=== PATIENT | female | born 1940 | race Caucasian/White ===

== ENCOUNTER 2022-05-04 15:00 | Outpatient (RCR) | payer MEDICARE, BC, SELFPAY ==
--- OUTSIDE RECORDS SUMMARY | 2022-03-30 10:23 | XMS_ITS | Continuity of Care Document ---
:1940 Author Care Team Providers Name Role Phone MD Pilar P Primary Care Physician MD Denis Osorio Attending Physician Chief Complaint and Reason for Visit Chief Complaint BACK PAIN Reason for Visit Multiple myeloma not having achieved remission Rule out med reaction Allergies, Adverse Reactions, Alerts Allergen Type Severity Reaction Last Updated Verified Status Peanut oil Allergy Mild September Yes Active 2020 Peanut-derived Allergy Mild September Yes Activ e 2020 Peanut-containi Allergy Mild September Yes Acti ve ng Drug 2020 Products BEES Allergy Mild September 10, No Active 2005 HYMENOPTERA Allergy Unknown September No Active ALLERGENIC 2020 EXTRACT TREE NUT Allergy Unknown September No Active 2020 nuts Allergy Severe shortness of June No Active breath 2013 Social History Smoking Status Status Start Date End Date Date of Observat ion Never smoked tobacco September (finding) 10:49pm Observation Status Observation Response Date of Response History provided by Patient September 15, 2021 8:28am Where do you live? Own home/apt September 15, 2021 8:28am With whom do you live? Alone September 15 8:28am Additional Data Assigned Sex Female Problems Active Problems Medical Problem Onset Date Status Back pain Active Compression fracture of body of Active thoracic vertebra Multiple myeloma not having 2020 Active achieved remission Inactive/Resolved Problems Medical Problem Onset Date Status Tachycardia May 02, 2012 Resolved Grieving Resolved Anxiety Resolved Muscle spasm Resolved Medications Medication Status Dose Units Route Directions Qty Days Start End Ins tructions Date Date Acetaminophen Active 500-1 MG PO Every 6 100 NO MORE THAN (Tylenol 000 Hours as 4000 MG/ DAY Extra needed Strength) 500 Mg TAB Acyclovir Active 400 MG PO Twice A Day On hold Allopurinol Active 300 MG PO Daily On hold Bisacodyl Active 10 MG ME Daily as 12 needed Dexamethasone Active 20 MG PO Weekly 23 February Resu me 26th, D1,8,15,22 OF EACH CYCLE 2021 2:57pm Epinephrine Active 0.3 MG IM As Needed (Epinephrine as needed Autoinjecter) 0.3 Mg/0.3 Ml INJ Lenalidomide Active 15 MG PO Daily STOPPE D REVLIMID IN OCTOBER (Revlimid) 15 DAYS 1 -21 OF EACH 28 DAY CYCLE Mg CAP Levothyroxine Active 88 MCG PO Daily Sodium (Synthroid) 88 Mcg TAB Lisinopril Active 20 MG PO Daily (Zestril) 20 Mg TAB Lorazepam Active 0.5 MG PO Every 6 (Ativan) 0.5 Hours as Mg TAB needed Oxycodone Hcl Active 2.5-5 MG PO Every 4 10 Decembe Hours as r 11th, needed 2020 10:29am Polyethylene Active 17 GM PO Daily 238 Decembe Glycol 3350 r 11th, (Miralax) 17 2020 Gm POW 10:29am Sertraline Active 100 MG PO Daily Hcl Sulfamethoxaz Active 1 TAB PO Every ON HO LD ole-Trimethop Saturday, rim (Bactrim Saturday, Ds) 800 And Saturday Mg/160 Mg TAB Acetaminophen Discontin 1-2 TAB PO Every 4 December /Hydrocodone ued Hours as , er Bitart needed 2014 02, (Hydrocodone- 11:17am 2020 Acetaminophen 10:18a ) 5 Mg/325 Mg m TAB Aspirin Discontin 325 MG PO Daily February ued 2021 11:59a m Aspirin Discontin 162 MG PO Daily April (Aspirin Baby ued , er 81 Mg) 81 Mg 2012 02, CHW 9:39am 2020 10:18a m Atenolol Discontin 100 MG PO Daily April (Tenormin) 50 ued 27th, er Mg TAB 2012 02, 9:39am 2020 10:21a m Atenolol Discontin 50 MG PO Daily April (Tenormin) 50 ued 27th, Mg TAB 2011 9:39am Calcium Discontin 600 MG PO Twice A Day May Carbonate ued , (Calcium) 600 2021 Mg TAB 11:59a m Calcium Discontin 500 MG PO Twice A Day 200 Decemb Carbonate ued er 2020 7:35am Cholecalcifer Discontin 2000 UNIT PO Daily February ol (Vitamin ued 9th, D) 2,000 Unit 2021 TAB 11:59a m Cholecalcifer Discontin 1000 UNIT PO Daily 100 Decemb ol (Vitamin ued er D) 1,000 Unit , TAB 2020 7:35am Cyclobenzapri Discontin 10 MG PO Three Times De cemb ne Hcl ued A Day as er needed 2020 10:29a m Dexamethasone Discontin 20 MG PO Weekly February O N HOLD ued , D1,8,15,22 OF EACH CYCLE 2021 2:57pm Diazepam Discontin 5 MG PO Once February take 1 tablet (Valium) 5 Mg ued , er by ruma TAB 2012 5th, minutes prior 11:05am 2020 to MRI february 10:18a repeat X1 m Influenza A Discontin 0.5 ML IM Once (H1n1) ued r 12th, er Monoval 2009 09, Vaccine 8:56am 2008 (Influenza A 9:06am (H1n1) Vaccine) INJ Influenza Discontin 0.5 ML IM Once Julyobe Virus Vacc ued 4th, r 4th, Triv Types 2009 2009 A&B (Fluarix 4:43pm 4:48pm ) 0.5 Ml INJ Influenza Discontin 0.5 ML IM Once Junem Virus Vaccine ued er isaac (Fluzone Pf , , [id number] 2010 2010 (0.5 Ml)) 0.5 4:46pm 4:49pm Ml INJ Influenza Discontin 0.5 ML IM Once Julyobe Virus Vaccine ued , r Split 2018, (Fluzone 8:45am 2018 High-Dose Pf 8:47am 2018 0.5 Ml) 1 Inj INJ Influenza Discontin 0.5 ML IM Once Julyobe Virus Vaccine ued , r Split 2016, (Fluzone 1:13pm 2016 High-Dose Pf 1:14pm 2016 0.5 Ml) 1 Inj INJ Influenza Discontin 0.5 ML IM Once Julyobe Virus Vaccine ued 4th, r 4th, Split 2015 2015 (Fluzone 8:08am 8:09am High-Dose (65 Yrs And Older) 2015-) 1 Inj INJ Influenza Discontin 0.5 ML IM Once Junem Virus Vaccine ued er isaac Split , , (Fluzone 2014 2014 High-Dose (65 4:00pm 4:01pm Yrs And Older) ) 1 Inj INJ Influenza Discontin 0.5 ML IM Once 1 Septemb Septem Virus Vaccine ued er isaac Split , , (Fluzone 2013 2013 High-Dose (65 4:27pm 4:34pm Yrs And Older) ) 1 Inj INJ Influenza Discontin 0.5 ML IM Once 1 Septemb Septem Virus Vaccine ued er isaac Split , (Fluzone (3 2012 2012 Years And 5:01pm 5:02pm Older) [id number]) 1 Ml INJ Influenza Discontin 0.5 ML IM Once 1 Sept Septem Virus Vaccine ued er isaac Split , , (Fluzone Pf 2011 2011 [id number] 5:17pm 5:18pm (0.5 Ml)) 0.5 Ml INJ Lisinopril Discontin 5 MG PO Daily April (Prinivil) ued , 2011 7:30pm Lorazepam Discontin 0.5 MG PO Three Times Decembapril PRN ued A Day r , , 2005 2011 4:51pm 7:33pm Propranolol Discontin 20 MG PO Twice A Day Decembe No vemb Hcl ued as needed r , er 2015 02, 6:05pm 2020 10:18a m Sertraline Discontin 50 MG PO Daily Decemb Hcl ued er 2020 7:35am Tramadol Hcl Discontin 25-50 MG PO Every 09 February ued Hours as , 2021 11:59a m Immunizations Immunization Event Date Not Given Dose Tung[employer] Lot Vac cine Reason Number Number Informatio n Statement (VIS) Deta il COVID-19 Pfizer November 07 PFIZER-BIO [id number] 2020 COVID-19 Pfizer December 13 PFIZER-HardDronesNTSoxiable [id number] 2020 Influenza July 10, Glaxosmithkline [id number] 2009 A Influenza June 2 Sanofi Pasteur [id number] 2010 A Influenza Brandie 3 Sanofi Pasteur [id number] 2011 A Influenza Brandie 4 Sanofi [id number] 2012 A Influenza June 5 Sanofi Pasteur [id number] 2013 A Influenza June 6 Sanofi [id number] 2014 A Influenza July 10 Sanofi [id number] 2015 A Influenza July 14 Sanofi [id number] 2016 A Influenza July 15 [facility] [id number] 2018 A Relevant Diagnostic Tests and/or Laboratory Data Laboratory Results Test Date/Time Result Interpretation Reference Result Comment Performing Range Site White Blood February 12, 6.58 5.00-10.00 [facility] Count 2021 1999 [facility] 1:10pm [place] [address] Red Blood February 12, 3.75 3.90-5.03 [facility] Count 2021 [address] [facility] 1:10pm [place] [address] Hemoglobin February 12, 11.8 12.0-15.5 [facility] 2021 [address] [facility] 1:10pm [place] [address] Hematocrit February 12, 37.6 34.9-44.5 [facility] 2021 1999 [facility] 1:10pm [place] [address] Mean February 12, 100 82-98 [facility] Corpuscular 2021 1999 [facility] Volume 1:10pm [place] [address] Mean February 12, 32 27-34 [facility] Corpuscular 2021 [address] [facility] Hemoglobin 1:10pm [place] [address] Mean February 12, 31 32-36 [facility] Corpuscular 2021 [address] [facility] Hemoglobin 1:10pm [place] [address] Concent Platelet Count February 12, 281 150-450 [facility] 2021 1999 [facility] 1:10pm [place] [address] RDW February 12, 13.7 11.5-15.3 [facility] Coefficient of 2021 1999 [facility] Variation 1:10pm [place] [address] Neutrophils February 12, 59.4 50.0-70.0 [facility] (%) (Auto) 2021 [address] [facility] 1:10pm [place] [address] Lymphocytes February 12, 28.9 25.0-45.0 [facility] Lab (%) (Auto) 2021 [address] [facility] 1:10pm [facility] [address] Monocytes (%) February 12, 9.3 0.00-11.0 [facility] Lab (Auto) 2021 1999 [facility] 1:10pm [place] [address] Eosinophils February 12, 1.7 0.0-7.0 [facility] Lab (%) (Auto) 2021 [address] [facility] 1:10pm [place] [address] Basophils (%) February 12, 0.5 0.0-3.0 [facility] Lab (Auto) 2021 1999 [facility] 1:10pm [place] [address] Immature February 12, 0.2 [facility] Granulocyte % 2021 1999 [facility] (Auto) 1:10pm [place] [address] Neutrophils # February 12, 3.92 1.70-7.00 [facility] Lab (Auto) 2021 1999 [facility] 1:10pm [place] [address] Lymphocytes # February 12, 1.90 0.90-2.90 [facility] (Auto) 2021 1999 [facility] 1:10pm [place] [address] Monocytes # February 12, 0.61 0.30-0.90 [facility] Lab (Auto) 2021 1999 [facility] 1:10pm [place] [address] Eosinophils # February 12, 0.11 0.00-0.50 [facility] (Auto) 2021 1999 [facility] 1:10pm [place] [address] Basophils # February 12, 0.03 0.00-0.20 [facility] Lab (Auto) 2021 1999 [facility] 1:10pm [place] [address] Immature February 12, 0.01 [facility] Granulocyte # 2021 1999 [facility] (Auto) 1:10pm [facility] [address] Folate February 12, 9.8 >=5.9 INTERPRETIVE LUIS CARLOS RENO 2021 INFORMATION: [address] [facility] [address] 1:10pm Folate, [facility] [address] SerumReference Interval: Less than or equal to 3.9 ng/mL = Deficient 4.0 ng/mL - 5.8 ng/mL = Indeterminate Greater than or equal to 5.9 ng/mL = NormalPerformed By: Mir[facility] [address] [place] [id number] Director: Amelia Crane MD Random Glucose February 12, 93 60-115 [facility] 2021 1999 [facility] 1:10pm [facility] [address] Blood Urea February 12, 19 7-30 [facility] Nitrogen 2021 1999 [facility] 1:10pm [facility] [address] Creatinine February 12, 0.8 0.5-1.5 [facility] 2021 1999 [facility] 1:10pm [facility] [address] Estimated February 12, Patient [facility] Creatinine 2021 height/weight 1999 [facility] Clearance 1:10pm [place] [address] available Sodium Level February 12, 139 135-149 [facility] 2021 1999 [facility] 1:10pm [facility] [address] Potassium February 12, 4.2 3.6-5.1 [facility] Level 2021 1999 [facility] 1:10pm [facility] [address] Chloride Level February 12, 105 96-114 [facility] 2021 1999 [facility] 1:10pm [facility] [address] Carbon Dioxide February 12, 27 20-32 [facility] Level 2021 1999 [facility] 1:10pm [facility] [address] Calcium Level February 12, 8.9 8.4-10.6 [facility] 2021 1999 [facility] 1:10pm [facility] [address] Total Protein February 12, 12.0 6.0-8.3 The use of [facility] 2021 Eltrombopag, a 1999 [facility] 1:10pm bone marrow [place] [address] stimulant used to treat thrombocytopenia and aplastic anemia, interferes with this measurement of total protein. A 5% bias has been observed. Albumin February 12, 4.4 3.3-5.0 [facility] 2021 1999 [facility] 1:10pm [facility] [address] Total February 12, 0.4 0.1-1.5 [facility] Bilirubin 2021 1999 [facility] 1:10pm [facility] [address] Aspartate February 12, 32 12-35 [facility] Amino Transf 2021 1999 [facility] (AST/SGOT) 1:10pm [facility] [address] Alanine February 12, 12 4-35 [facility] Aminotransfera 2021 1999 [facility] se (ALT/SGPT) 1:10pm [place] [address] Alkaline February 12, 88 40-150 [facility] Phosphatase 2021 1999 [facility] 1:10pm [facility] [address] Total Protein February 12, 11.6 6.3-8.2 [facility] (VIOLETTA) [address] 1:10pm [facility] [address] Albumin (VIOLETTA) February 12, 4.91 3.75-5.01 [facility] [address] 1:10pm [facility] [address] Dbmci-0-Rkuwrq February 12, 0.31 0.19-0.46 [facility] ins [address] 1:10pm [facility] [address] Ebjuq-1-Ybajfk February 12, 0.95 0.48-1.05 [facility] ins [address] 1:10pm [facility] [address] Beta Globulins February 12, 0.64 0.48-1.10 [facility] [address] 1:10pm [facility] [address] Gamma February 12, 4.79 0.62-1.51 [facility] Globulins [address] 1:10pm [facility] [address] Immunofixation February 12, VIOLETTA [facility] Interpretation [address] 1:10pm [facility] [address] Immunoglobulin February 12, 5952 [address]1632 [facility] G 2021 INTERVAL: [address] (Nephelometry) 1:10pm Immunoglobulin [facility] [address] GAccess complete set of age- and/or gender-specific referenceinterva ls for this test in the [facility] Test Directory([employer]). Immunoglobulin February 12 [phone] [facility] A [address]: [address] (Nephelometry) 1:10pm Immunoglobulin [facility] [address] AAccess complete set of age- and/or gender-specific referenceinterva ls for this test in the [facility] Test Directory([employer]). Immunoglobulin February 12 35-263 [facility] M [address]VAL: [address] (Nephelometry) 1:10pm Immunoglobulin [facility] [address] MAccess complete set of age- and/or gender-specific referenceinterva ls for this test in the [facility] Test Directory([employer]). Free [place] February 12, 161.50 3.30-19.40 INTERPRETIVE [employer] Light Chains, 2021 INFORMATION: [address] Quant 1:10pm [place] Qnt Free [facility] [address] Light ChainsUndetected antigen excess is a rare event but cannot beexcluded. Free light chain results should always be interpretedin conjunction with other clinical and laboratory findings. Free Lambda February 12, 3.31 5.71-26.30 INTERPRETIVE [employer] Light Chains, 2021 INFORMATION: [address] Quant 1:10pm Lambda Qnt Free [facility] [address] Light ChainsUndetected antigen excess is a rare event but cannot beexcluded. Free light chain results should always be interpretedin conjunction with other clinical and laboratory findings. Free [place] and February 12, 48.79 0.26-1.65 [facility] Lambda Light [address] Chains 1:10pm [facility] [address] VIOLETTA & Serum February 12, See M-spike in the [facility] PEP 2021 Note gamma region. [address] Interpretation 1:10pm The monoclonal [place] [address] protein peakaccounts for 4.58 g/dL of the total 4.79 g/dL of protein inthe gamma region. 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 Monoclonal February 12, See Authorized [facility] Protein and 2021 Note individuals can [address] FLC (EER) 1:10pm access the [facility] [address] ARUPEnhanced Report using the following link:[email or web address] By: Med[facility]ram500 [place], [place] [address]Saqljaebjo Director: Amelia Crane MD Vitamin B12 February 12, [phone] TEST DONE AT [facility] Level 2021 [facility] [address] [facility] 1:10pm [facility] [address] Advance Directives Advance Directive Response Recorded Date/Time Does Pt have Health Care No October 05, 2015 2:38pm Directive? Has patient completed a Yes September 14 10:49pm Health Care Directive? Insurance Providers Guarantor Nehemiah Pineda Address [facility] [address] [facility] [address] Contact Info. Home Phone: Payer Policy Id Coverage Id Subscriber's Subscriber Id Effective E xpiration Name Date Date Blue Cross [id number] Nehemiah Pineda October 07, [place] 220G [id number] 2008 Medicare [id number] Christianalejandra Nehemiah 64 B Encounters Encounter Location(s) Arrival/Admit Date Discharge/Depart Date Provider(s) Registered [place] March 29, 2022 [facility] 6:57am Recent Diagnosis Onset Date Multiple myeloma not having achieved remission Functional Status Observation Response Date Recorded Functional Status Independent September 16, 2021 1:44pm Mental Status Observation Response Date Recorded Cognitive Status Alert September 16, 2021 1:44pm Oriented September 16, 2021 1:44pm Assessments Diagnosis Onset Date Resolution Status Multiple myeloma not Active having achieved remission Plan of Treatment Future Tests Future scheduled test information is unavailable Pending Tests Pending diagnostic test information is unavailable Future Visits Future appointment information is unavailable Referrals to Other Providers Reason for Referral Start Provider Provider Contact Provider Address Referral Date Information Bonnie Hernandez MD Work Phone: [facility] Karina [address] [facility] 2 [address] Future Procedures Future procedure information is unavailable Future Medications Future medication information is unavailable Patient Instructions Oxycodone, Rapid Release (By mouth) Polyethylene Glycol 3350 (By mouth) Vertebral Compression Fracture (DC) Back Pain (GEN)
--- OUTSIDE RECORDS SUMMARY | 2022-03-30 11:10 | XMS_ITS | Continuity of Care Document ---
[...] Daily On hold Bisacodyl Active 10 MG [place] Daily as 12 needed Dexamethasone Active 20 [...] ued er isaac (Fluzone Pf , , 4850-2295 2010 2010 (0.5 Ml)) 0.5 4:46pm 4:49pm [...] 2012 2012 Years And 5:01pm 5:02pm Older) [id number]) 1 Ml INJ Influenza Discontin 0.5 ML IM Once 1 Sept Septem Virus Vaccine ued er isaac Split , , (Fluzone Pf 2011 2011 [id number] 5:17pm 5:18pm (0.5 Ml)) 0.5 Ml INJ [...] Immunizations Immunization Event Date Not Given Dose Gunite Mixer Lot Vac cine Reason Number Number Informatio n Statement (VIS) Deta il COVID-19 Pfizer November 07 PFIZER-BIO [id number] 2020 COVID-19 Pfizer December 13 PFIZER-BlueleafNTLifeBio [id number] 2020 Influenza July 10, Glaxosmithkline [id number] 2009 A Influenza June 2 Sanofi Pasteur [id number] 2010 A Influenza Brandie 3 Sanofi Pasteur [id number] 2011 A Influenza Brandie 4 Sanofi [id number] 2012 A Influenza June 5 Sanofi Pasteur [id number] 2013 A Influenza June 6 Sanofi [id number] 2014 A Influenza July 10 Sanofi [id number] 2015 A Influenza July 14 Sanofi [id number] 2016 A Influenza July 15 [facility] [id number] 2018 A Relevant Diagnostic Tests and/or Laboratory Data Laboratory Results Test Date/Time Result Interpretation Reference Result Comment Performing Range Site White Blood February 12, 6.58 5.00-10.00 [facility] Count 2021 [address] [facility] 1:10pm [place] [address] Red Blood February 12, 3.75 3.90-5.03 [facility] Count 2021 [address] [facility] 1:10pm [place] [address] Hemoglobin February 12, 11.8 12.0-15.5 [facility] 2021 [address] [facility] 1:10pm [place] [address] Hematocrit February 12, 37.6 34.9-44.5 [facility] 2021 [address] [facility] 1:10pm [place] [address] Mean February 12, 100 82-98 [facility] Corpuscular 2021 1999 [facility] Volume 1:10[place] [address] Mean February 12, 32 27-34 [facility] Corpuscular 2021 [address] [facility] Hemoglobin 1:10pm [place] [address] Mean February 12, 31 32-36 [facility] Corpuscular 2021 [address] [facility] Hemoglobin 1:10pm [place] [address] Concent Platelet Count February 12, 281 150-450 [facility] 2021 [address] [facility] 1:10pm [place] [address] RDW February 12, 13.7 11.5-15.3 [facility] Coefficient of 2021 [address] [facility] Variation 1:10pm [place] [address] Neutrophils February 12, 59.4 50.0-70.0 [facility] (%) (Auto) 2021 1999 [facility] 1:10pm [place] [address] Lymphocytes February 12, 28.9 25.0-45.0 [facility] Lab (%) (Auto) 2021 [address] [facility] 1:10pm [facility] [address] Monocytes (%) February 12, 9.3 0.00-11.0 [facility] Lab (Auto) 2021 [address] [facility] 1:10pm [place] [address] Eosinophils February 12, 1.7 0.0-7.0 [facility] (%) (Auto) 2021 [address] [facility] 1:10pm [place] [address] Basophils (%) February 12, 0.5 0.0-3.0 [facility] Lab (Auto) 2021 [address] [facility] 1:10pm [place] [address] Immature February 12, 0.2 [facility] Granulocyte % 2021 1999 [facility] (Auto) 1:10pm [place] [address] Neutrophils # February 12, 3.92 1.70-7.00 [facility] Lab (Auto) 2021 [address] [facility] 1:10pm [place] [address] Lymphocytes # February 12, 1.90 0.90-2.90 [facility] (Auto) 2021 [address] [facility] 1:10pm [place] [address] Monocytes # February 12, 0.61 0.30-0.90 [facility] Lab (Auto) 2021 [address] [facility] 1:10pm [place] [address] Eosinophils # February 12, 0.11 0.00-0.50 [facility] (Auto) 2021 [address] [facility] 1:10pm [place] [address] Basophils # February 12, 0.03 0.00-0.20 [facility] Lab (Auto) 2021 [address] [facility] 1:10pm [place] [address] Immature February 12, 0.01 [facility] Granulocyte # 2021 1999 [facility] (Auto) 1:10pm [facility] [address] Folate February 12, 9.8 >=5.9 INTERPRETIVE LUIS CARLOS RENO 2021 INFORMATION: [address] [facility] [address] 1:10pm Folate, [facility] [address] SerumReference Interval: Less than or equal to 3.9 ng/mL = Deficient 4.0 ng/mL - 5.8 ng/mL = Indeterminate Greater than or equal to 5.9 ng/mL = NormalPerformed By: [employer] [address] [place] [id number] Director: Amelia Crane MD Random Glucose February 12, 93 60-115 [facility] 2021 [address] [facility] 1:10pm [facility] [address] Blood Urea February 12, 19 7-30 [facility] Nitrogen 2021 [address] [facility] 1:10pm [facility] [address] Creatinine February 12, 0.8 0.5-1.5 [facility] 2021 [address] [facility] 1:10pm [facility] [address] Estimated February 12, Patient [facility] Creatinine 2021 height/weight [address] [facility] Clearance 1:10pm [place] [address] available Sodium Level February 12, 139 135-149 [facility] 2021 [address] [facility] 1:10pm [facility] [address] Potassium February 12, 4.2 3.6-5.1 [facility] Level 2021 [address] [facility] 1:10pm [facility] [address] Chloride Level February 12, 105 96-114 [facility] 2021 [address] [facility] 1:10pm [facility] [address] Carbon Dioxide February 12, 27 20-32 [facility] Level 2021 [address] [facility] 1:10pm [facility] [address] Calcium Level February 12, 8.9 8.4-10.6 [facility] 2021 [address] [facility] 1:10pm [facility] [address] Total Protein February 12, 12.0 6.0-8.3 The use of [facility] 2021 Eltrombopag, a [address] [facility] 1:10pm bone [place] [address] stimulant used to treat thrombocytopenia and aplastic anemia, interferes with this measurement of total protein. A 5% bias has been observed. Albumin February 12, 4.4 3.3-5.0 [facility] 2021 [address] [facility] 1:10pm [facility] [address] Total February 12, 0.4 0.1-1.5 [facility] Bilirubin 2021 [address] [facility] 1:10pm [facility] [address] Aspartate February 12, 32 12-35 [facility] Amino Transf 2021 [address] [facility] (AST/SGOT) 1:10pm [facility] [address] Alanine February 12, 12 4-35 [facility] Aminotransfera 2021 [address] [facility] se (ALT/SGPT) 1:10pm [place] [address] Alkaline February 12, 88 40-150 [facility] Phosphatase 2021 [address] [facility] 1:10pm [facility] [address] Total Protein February 12, 11.6 6.3-8.2 [facility] ([facility]) [address] 1:10pm [facility] [address] Albumin (VIOLETTA) February 12, 4.91 3.75-5.01 [facility] [address] 1:10pm [facility] [address] Zhnnr-2-Mszjzb February 12, 0.31 0.19-0.46 [facility] ins [address] 1:10pm [facility] [address] Quvnq-6-Hthgce February 12, 0.95 0.48-1.05 [facility] ins [address] 1:10pm [facility] [address] Beta Globulins February 12, 0.64 0.48-1.10 [facility] [address] 1:10pm [facility] [address] Gamma February 12, 4.79 0.62-1.51 [facility] Globulins [address] 1:10pm [facility] [address] Immunofixation February 12, [facility] Interpretation [address] 1:10pm [facility] [address] Immunoglobulin February 12, 5952 768-1632 REFERENCE [facility] G 2021 INTERVAL: [address] (Nephelometry) 1:10pm Immunoglobulin [facility] [address] GAccess complete set of age- and/or gender-specific referenceinterva ls for this test in the [facility] Laboratory Test Directory([employer]). Immunoglobulin February 12 68-408 RE[facility]ENCE [facility] A 2021 INTERVAL: [address] (Nephelometry) 1:10pm Immunoglobulin [facility] [address] AAccess complete set of age- and/or gender-specific referenceinterva ls for this test in the [facility] Test Directory([employer]). Immunoglobulin February 12 35-263 RE[facility]ENCE [facility] M [address] INTERVAL: [address] (Nephelometry) 1:10pm Immunoglobulin [facility] [address] MAccess complete set of age- and/or gender-specific referenceinterva ls for this test in the [employer] Laboratory Test Directory([facility]). Free [place] February 12, 161.50 3.30-19.40 INTERPRETIVE [employer] Light Chains, 2021 INFORMATION: [address] Quant 1:10pm [place] Qnt Free [facility] [address] Light ChainsUndetected antigen excess is a rare event but cannot beexcluded. Free light chain results should always be interpretedin conjunction with other clinical and laboratory findings. Free Lambda February 12, 3.31 5.71-26.30 INTERPRETIVE [employer] Light Chains, 2021 INFORMATION: [address] Quant 1:10pm Lambda Qnt Free [facility] [address] Light ChainsUndetected antigen excess is a rare event but cannot beexcluded. Free light chain results should always be interpretedin conjunction with other clinical and laboratory findings. Free [place] and February 12, 48.79 0.26-1.65 [facility] Lambda Light [address] Chains 1:10pm [facility] [address] [facility] & Serum February 12, See M-spike in the [facility] PEP 2021 Note gamma region. [address] Interpretation 1:10pm The monoclonal [place] [address] protein peakaccounts for 4.58 g/dL of the total 4.79 g/dL of protein inthe gamma region. 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 Monoclonal February 12, See Authorized [facility] Protein and 2021 Note individuals can [address] FLC (EER) 1:10pm access the [facility] [address] ARUPEnhanced Report using the following link:[email or web address] By: [employer], [place] [address]Ipibtqmnxt Director: Amelia Crane MD Vitamin B12 February 12, 564 194-228 TEST DONE AT [facility] Level 2021 [facility] [address] [facility] 1:10pm [facility] [address] Advance Directives Advance Directive Response Recorded Date/Time Does Pt have Health Care No October 05, 2015 2:38pm Directive? Has patient completed a Yes September 14 10:49pm Health Care Directive? Insurance Providers Guarantor Nehemiah Pineda Address [facility] [address] [facility] [address] Contact Info. Home Phone: Payer Policy Id Coverage Id Subscriber's Subscriber Id Effective E xpiration Name Date Date Blue [employer] [id number] Nehemiah Pineda October 07, [place] 220G [id number] B 2008 Medicare [id number] Christainalejandra Nehemiah 64 B Encounters Encounter Location(s) Arrival/Admit Date Discharge/Depart Date Provider(s) Registered [place] March 29, 2022 [facility] 6:57am Recent Diagnosis Onset Date Multiple [...] Bonnie Hernandez MD Work Phone: [facility] [address] [facility] [phone] Future Procedures Future procedure information is unavailable Future Medications Future medication information is unavailable Patient Instructions Oxycodone, Rapid Release (By mouth) Polyethylene Glycol 3350 (By mouth) Vertebral Compression Fracture (DC) Back Pain (GEN)
[2022-04-10 15:04] LABS: Basophils Absolute Auto 0.04 K/uL (0.00-0.30); Basophils Percent Auto 0.7 % (0.0-3.0); Eosinophils Absolute Auto 0.13 K/uL (0.00-0.50); Eosinophils Percent Auto 2.4 % (0.0-7.0); Hematocrit 35.3 % (33.0-51.0); Hemoglobin* 11.1 gm/dL (12.0-16.0); Lymphocytes Absolute Auto 2.26 K/uL (0.90-2.90); Lymphocytes Percent Auto 41.8 % (20-44); Mean Corpuscular HGB Conc 31 gm/dL (32-36); Mean Corpuscular Hemoglobin 32 pg (26-34); Mean Corpuscular Volume 103 fL (80-100); Monocytes Percent Auto 13.3 % (0.0-11.0); Neutrophils Percent Auto 41.8 % (42.0-72.0); Platelet Count* 275 K/uL (140-440); RDW Coefficient of Variation % 13.3 % (11.5-15.5); Red Blood Count 3.44 m/uL (4.00-5.20); White Blood Count* 5.41 K/uL (4.50-11.00)
[2022-04-10 15:09] LABS: Slide Review Reflex No
[2022-04-10 15:20] LABS: Albumin* 3.8 g/dL (3.3-5.0); Chloride* 107 mmol/L (96-114); Potassium* 4.5 mmol/L (3.6-5.1); Sodium* 137 mmol/L (135-149)
[2022-04-10 15:22] LABS: Creatinine* 0.9 mg/dL (0.5-1.5); Estimated Glomerular Filt Rate 64.23
[2022-04-10 15:23] LABS: Alanine Aminotransferase* 11 U/L (4-35); Alkaline Phosphatase* 74 U/L (40-150); Aspartate Amino Transferase* 19 U/L (12-35); Bilirubin Total* 0.2 mg/dL (0.1-1.5); Blood Urea Nitrogen* 17 mg/dL (7-30); Calcium* 8.4 mg/dL (8.4-10.6); Carbon Dioxide* 28 mmol/L (20-32); Glucose* 96 mg/dL (60-115)
--- NOTE | 2022-04-11 08:46 | ONC.NURNOTE ---
Environmental Engineer Scientist checked in with Nehemiah yesterday while here for lab draw- denies any concerns with rash, diarrhea, fever reports feeling well with the Revlimid Environmental Engineer Scientist phoned [facility] in [place] because patient still needs her dexamethasone delivered- they were going to deliver it tonite labs reviewed by Deirdre Rodriguez and called to Nehemiah Tarangoi was instructed to start Revlimid and Dex once she has both the Rev and Dex- next appts reviewed
--- NOTE | 2022-04-11 08:53 | ONC.NURNOTE ---
Dental work prior to Zometa is planned for 05/15/22
--- NOTE | 2022-04-27 15:46 | ONC.NURNOTE ---
Patient called regarding constipation-currently no BM for 3 days so patient instructed to increase her mirilax to 3 times a day and then to take one of her dulcolax tablets. patient to call her primary in am if still no BM.
--- NOTE | 2022-05-01 06:56 | URNOTE ---
Request received from [facility] for prior authorization of Zoledronic Acid [id number]. Patient carries Medicare as primary insurance. Per CMS.gov LCD B79101 no prior authorization is required for Zoledronic Acid. Services are based on medical necessity and Medicare guidelines.
--- NOTE | 2022-05-02 12:02 | ONC.NURNOTE ---
Nehemiah missed scheduled lab appt yesterday message left on VM to call to reschedule
[2022-05-04 14:42] LABS: Basophils Absolute Auto 0.02 K/uL (0.00-0.30); Basophils Percent Auto 0.3 % (0.0-3.0); Hemoglobin* 11.5 gm/dL (12.0-16.0); Immature Granulocytes Abs Auto 0.02 K/uL (0.00-0.30); Lymphocytes Absolute Auto 2.24 K/uL (0.90-2.90); Lymphocytes Percent Auto 32.7 % (20-44); Mean Corpuscular HGB Conc 32 gm/dL (32-36); Mean Corpuscular Hemoglobin 32 pg (26-34); Mean Corpuscular Volume 101 fL (80-100); Monocytes Percent Auto 13.9 % (0.0-11.0); Neutrophils Absolute Auto 3.06 K/uL (1.7-7.0); Neutrophils Percent Auto 44.8 % (42.0-72.0); Platelet Count* 189 K/uL (140-440); RDW Coefficient of Variation % 13.2 % (11.5-15.5); Red Blood Count 3.55 m/uL (4.00-5.20); White Blood Count* 6.84 K/uL (4.50-11.00)
[2022-05-04 14:57] LABS: Slide Review Acceptable Review (Acceptable); Slide Review Reflex Yes
[2022-05-04 15:01] LABS: Chloride* 105 mmol/L (96-114); Potassium* 3.7 mmol/L (3.6-5.1); Sodium* 136 mmol/L (135-149)
[2022-05-04 15:03] LABS: Aspartate Amino Transferase* 21 U/L (12-35); Bilirubin Total* 0.3 mg/dL (0.1-1.5); Carbon Dioxide* 26 mmol/L (20-32); Creatinine* 1.1 mg/dL (0.5-1.5); Est. Creatinine Clearance* 31.19; Estimated Glomerular Filt Rate 50 ml/min
[2022-05-04 15:04] LABS: Alanine Aminotransferase* 13 U/L (4-35); Alkaline Phosphatase* 68 U/L (40-150); Blood Urea Nitrogen* 20 mg/dL (7-30); Calcium* 8.7 mg/dL (8.4-10.6); Glucose* 120 mg/dL (60-115); Total Protein* 10.2 g/dL (6.0-8.3)
[2022-05-08 22:31] LABS: Albumin 4.36 g/dL (3.75-5.01); Alpha 1 Globulin 0.38 g/dL (0.19-0.46); Alpha 2 Globulin 1.02 g/dL (0.48-1.05); Immunofixation IFE Done; Immunoglobulin A 28 mg/dL (68-408); Immunoglobulin G 4676 mg/dL (768-1632); Immunoglobulin M 21 mg/dL (35-263); Kappa Qnt Free Light Chains 206.86 mg/L (3.30-19.40); Lambda Qnt Free Light Chains 8.21 mg/L (5.71-26.30); Total Protein, Serum 9.6 g/dL (6.3-8.2)
== END 2022-05-06 23:59 | disposition home or self-care (01) ==
LOC: CCIC 15:00
PROVIDERS: Internal Medicine Medical Oncology; PCP Family Medicine; Visit Provider Internal Medicine Hematology & Oncology
DX: C90.00 Multiple myeloma not having achieved remission (principal)
CPT/HCPCS: 36415; 80053; 82784; 83520; 84155; 84165; 85025; 86334

== ENCOUNTER 2022-05-28 09:59 | Emergency (ER) | payer MEDICARE, BC, SELFPAY ==
[2022-05-28 10:11] VITALS: BP 177/90; PULSE 87; RESP 26; TEMP 36.8; O2SAT 96; BMI 20.4
--- NOTE | 2022-05-28 10:49 | CRLHL7_ITS ---
For Patients: As a result of the Century Cures Act, medical imaging exams and procedure reports are released immediately into your electronic medical record. You may view this report before your referring provider. If you have questions, please contact your health care provider. INDICATION: Chest pain COMPARISON: Examination consists of two views of the chest and a total of 3 additional images to evaluate the right and left rib cage. TECHNIQUE: A single view chest radiograph from June 29, 2014 FINDINGS: TUBES AND LINES: None. HEART AND MEDIASTINUM: Heart size top normal. Tortuous aorta and tortuous head neck vessels parent. LUNGS AND PLEURAL SPACES: Linear opacities in the left mid lung and both bases probably atelectasis or scarring.No pleural effusion or pneumothorax OSSEOUS STRUCTURES: Demineralized osseous structures. Multiple wedge compression deformities of multiple thoracic vertebral bodies, age-indeterminate. Numerous bilateral rib fractures age indeterminate. None of these appear to be significantly displaced. The rib fractures appear to be new since 2013. Since a lateral view was not available in 2013, it is indeterminate whether the thoracic fractures are new. IMPRESSION: 1. Linear opacities primarily at the lung bases consistent with atelectasis or scarring. No pleural effusion or pneumothorax. 2. Multiple wedge compression deformities of multiple thoracic vertebral bodies, age indeterminate. 3. Numerous bilateral rib fractures, age indeterminate. None of these appear to be significantly displaced. Dictated by Jimbo Calderón MD @ 05/28/2022 12:22:26 PM (Electronically Signed)
--- NOTE | 2022-05-28 12:01 | ED.NURSE ---
pt given water, OK's per MD
[2022-05-28 12:32] VITALS: BP 160/73; PULSE 79; RESP 20; O2SAT 94
--- NOTE | 2022-05-28 12:44 | CRLHL7_ITS ---
For Patients: As a result of the Century Cures Act, medical imaging exams and procedure reports are released immediately into your electronic medical record. You may view this report before your referring provider. If you have questions, please contact your health care provider. INDICATION: CHEST PAIN TECHNIQUE: CT chest without contrast. COMPARISON: None. FINDINGS: Lungs and pleura: The lungs are hyperinflated. Linear bibasilar atelectasis. Mild bibasilar bronchiectasis. The central airways are patent. No pleural effusions, pleural thickening, or pneumothorax. Heart and vasculature: Heart size is normal. Thoracic aorta and pulmonary artery are normal in caliber.Mild atherosclerosis of the thoracic aorta. Lymph nodes/mediastinum: No mediastinal or axillary adenopathy. Chest wall: No masses. Upper abdomen: Small hiatal hernia. Bones: Degenerative changes of the spine. Chronic bilateral rib fractures. Chronic and more age indeterminate sternum fracture. Multiple age-indeterminate compression deformities, T3, T5, T7, T8, T9, T11, T12 and L1. (Severe height loss is noted at the T3, T5 T9 and L1 levels. ( IMPRESSION: 1. The lungs are hyperinflated with mild bibasilar atelectasis and bronchiectasis. 2. Multiple age-indeterminate compression deformities, T3, T5, T7, T8, T9, T11, T12 and L1. 3. Chronic and age indeterminate fractures of the sternum. Remote bilateral rib fractures. 4. Small hiatal hernia. Please note that all CT scans at this facility use dose modulation, iterative reconstruction, and/or weight-based dosing when appropriate to reduce radiation dose to as low as reasonably achievable. Dictated by Barry Pizano MD @ 05/28/2022 1:41:59 PM (Electronically Signed)
--- NOTE | 2022-05-28 14:05 | ED.CHESTPAIN ---
HPI - Chest Pain General Date Seen: 05/28/22 Chief Complaint: Chest Pain Stated Complaint: chest pain/from [facility] Time Seen by Provider: 05/28/22 10:32 Source: patient, RN notes reviewed, old records reviewed and other (Friend) Mode of arrival: wheelchair Limitations: no limitations History of Present Illness HPI narrative: Patient is a very kind in pleasant 82-year-old female with history of multiple myeloma, currently on Revlimid as well as methadone for chronic pain who comes to the emergency room [facility] for evaluation regarding chest pain. Patient noted that she had actually been feeling fairly well until SaturdayMay 26 at which time she was sitting in her desk and reach for something had the sudden onset of upper chest pain. She notes that since that time movement greatly increases her discomfort. She is able to cause her pain by taking a deep breath or tensing up on her upper extremities. She denies any falls or trauma. She has not had a cough or cold or fever. She denies a history of heart problems. She has not noted any increasing back pain. In the past she has had multiple thoracic compression fractures. In regards to her multiple myeloma history, she was diagnosed in 2020 and subsequently developed thoracic spine fractures. At 1 point she was actually placed on hospice because of severe pain. She was treated with methadone and subsequently discharged from hospice. She states that she has been feeling very well. A good friend of hers accompanies her to here today. complaint: chest pain Onset (ago): day(s) Timing of current episode: constant Onset: other (With movement) Pain location: substernal, left chest and right chest Pain radiation: none Severity: moderate Quality: sharp Relieving factors: rest Exacerbating factors: exertion, inspiration, palpation and movement Context: other (Multiple myeloma) Treatment prior to arrival: none Related Data Home Medications Medication Instructions Recorded Confirmed acetaminophen 500 mg capsule 500 mg PO Q6H PRN 04/05/22 05/14/22 bisacodyl 10 mg rectal suppository 10 mg UT DAILY PRN 04/05/22 05/14/22 dexamethasone 4 mg tablet 20 mg PO .weekly 04/05/22 05/14/22 epinephrine 0.3 mg/0.3 mL 0.3 mg IM PRN 04/05/22 05/14/22 injection, auto-injector lenalidomide 15 mg capsule 15 mg PO DAILY 04/05/22 05/14/22 (Revlimid) levothyroxine 88 mcg tablet 88 mcg PO DAILY 04/05/22 05/14/22 lisinopril 20 mg tablet 20 mg PO DAILY 04/05/22 05/14/22 lorazepam 0.5 mg tablet 0.5 mg PO Q6H PRN 04/05/22 05/14/22 oxycodone 5 mg tablet 2.5 - 5 mg PO Q4H PRN 04/05/22 05/14/22 polyethylene glycol 3350 17 17 g PO DAILY PRN 04/05/22 05/14/22 gram/dose oral powder (Gavilax) sertraline 100 mg tablet 100 mg PO DAILY 04/05/22 05/14/22 Allergies Allergy/AdvReac Type Severity Reaction Status Date / Time tree nut Allergy Unknown Verified 04/05/22 17:27 nuts Allergy Severe Uncoded 04/05/22 17:27 BEES Allergy Mild Uncoded 04/05/22 17:27 HYMENOPTERA ALLERGENIC Allergy Unknown Uncoded 04/05/22 17:27 [address] [facility] Medical History Anxiety Back pain Compression fracture of body of thoracic vertebra Grief Muscle spasm Tachycardia (05/02/12) Social History Smoking Status: Never smoker Do you use any of these nicotine containing products: None How often do you have a drink containing alcohol: never How often do you have six or more drinks on one occasion: Never AUDIT-C Alcohol total score: 0 Non-prescribed substance use: denies use service: No Exam Const Vital Signs, click to edit/add: Vital Signs - 24 hr 05/28/22 10:11 05/28/22 12:32 Temperature 98.2 F Pulse Rate [Pulse Oximeter] 87 79 Respiratory Rate 26 H 20 Blood Pressure [Left Upper Arm] 177/90 H 160/73 H Pulse Oximetry 96 94 Oxygen Delivery Method Room Air Documenting provider has reviewed patient's vital signs: yes Common normals: oriented x3 and alert General appearance: cooperative, well kempt and other (Uncomfortable with movement.) Nutritional appearance: cachectic HENMT Common normals: head/scalp atraumatic and external nose normal Head and scalp: atraumatic Face and sinus: normal facial exam Nose: external nose normal Eye General eye: normal appearance of both eyes Neck & C-Spine Common normals: no lymphadenopathy and supple Chest Chest: tenderness (Bilateral upper anterior ribs as well as sternum. No ecchymosis noted) Other: No pain with squeeze of chest wall laterally. Resp Common normals: normal respiratory effort and clear to auscultation bilaterally Effort & inspection: able to speak in complete sentences and symmetric chest movement Auscultation: clear to auscultation bilaterally Cardio Common normals: regular rate and regular rhythm Rate: regular rate Rhythm: regular rhythm GI Common normals: soft to palpation and non-tender Palpation: soft Back & Pelvis Other: Kyphosis Extremity Common normals: normal to inspection Neuro Common normals: oriented x3 Sensorium/orientation: alert Speech: speech normal Psych Common normals: mental status grossly normal, thought process normal, cooperative and affect normal Appearance: well kempt Mood and affect: sad and tearful Thought process: normal thought process Thought content: normal thought content Attention/concentration: attention grossly intact Memory/cognition: memory grossly intact Insight: insight good Judgement: judgment good Skin Common normals: no rashes or lesions noted General skin exam: no rashes or lesions noted Course Course Hospital Course: Patient is requesting an x-ray and then to go home per nursing staff. Do talk to patient and with EKG that is read by me as normal, and with the exam that showed tenderness over anterior chest wall and sternum, I do think this is most likely musculoskeletal stops comfort. Would recommend x-ray of ribs and sternum. At this time EKG is reassuring and symptoms suggest musculoskeletal etiology. Reevaluation(s) Reevaluation #1: Patient noted to have multiple rib fractures bilateral noted on her plain film x-ray. These are new since 2013. It is recommended that she undergo CT of the chest. Vital Signs Vital signs: Initial Vital Signs Temperature 98.2 F 05/28/22 10:11 Temperature Source Temporal Artery Scan 05/28/22 10:11 Pulse Rate 87 05/28/22 10:11 Pulse Rhythm 05/28/22 10:11 Respiratory Rate 26 H 05/28/22 10:11 Blood Pressure 177/90 H 05/28/22 10:11 Blood Pressure Mean 119 05/28/22 10:11 Blood Pressure Position Supine 05/28/22 10:11 Pulse Oximetry 96 05/28/22 10:11 Oxygen Delivery Method 05/28/22 10:11 Vital Signs Temperature 98.2 F 05/28/22 10:11 Pulse Rate 87 05/28/22 10:11 Respiratory Rate 26 H 05/28/22 10:11 Blood Pressure 177/90 H 05/28/22 10:11 Pulse Oximetry 96 05/28/22 10:11 Oxygen Delivery Method 05/28/22 10:11 Temperature 98.2 F 05/28/22 10:11 Pulse Rate 79 05/28/22 12:32 Respiratory Rate 20 05/28/22 12:32 Blood Pressure 160/73 H 05/28/22 12:32 Pulse Oximetry 94 05/28/22 12:32 Oxygen Delivery Method 05/28/22 10:11 MDM - Chest Pain MDM Narrative Medical decision making narrative: 1. New sternal fracture-likely secondary to profound osteopenia from age related causes as well as chronic dexamethasone. We did talk briefly about the use of calcium but patient states she has been warned not to start that until after a dental procedure that is upcoming. She will speak with Oncology on SaturdayJune 04 with his already scheduled. I did state that at that time they may wish to start calcium. At this time cannot rule out the possibility of underlying multiple myeloma causing the fracture. Again follow-up with oncology scheduled in 1 week. 2. Chest pain-likely musculoskeletal stemming from 1. Patient is on chronic methadone which she will continue. We patient was given oxycodone 5 mg tab here in the emergency room. She may use this for breakthrough pain. Oxycodone 5 mg 1-2 tabs p.o. q.4-6 hours p.r.n., 20. [employer]. I did contact her primary clinic [facility] and spoke with Dr. Quezada's nurse. I wanted to let them know that patient may need to contact them for further refills or evaluation. 3. Disposition-patient will be discharged home. She will need to return for worsening symptoms, inability to care for herself at home. Medical Records Data Attestation: I reviewed the patient's medical records. Medical records narrative: 81-year-old female with previously diagnosed multiple myeloma, questioning whether to resume treatment Oncologic history began in fall 2020June,--found to have IgG kappa monoclonal at 5.04 g per dL, total IgG elevated at approximately 7500. [place] free light chains elevated at 23 with kappa lambda ratio at 27. Her beta 2 microglobulin was 3.8 and LDH normal at 146. July 12, 2021--bone marrow biopsy showing plasma cell myeloma with bone marrow involvement 80%, bone marrow cellularity 30%, peripheral blood with rare (less than 5%) circulating plasma cells. 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 In patients with myeloma, gain of 1q is classified as a high risk cytogenetic category however a trisomy of 1 or more odd numbered chromosomes may ameliorate this risk (mSMART 3.0). July 14, 2021--PET scan showing scattered metabolic active skeletal lesion in few ribs bilaterally, proximal left humeral shaft as well as sacrum and iliac bones as well as L3. July 25, 2021--seen by hematology and started on Revlimid 15 mg daily days 1 through 21 and dexamethasone 20 mg/day on days 1, 8, 15 and 22 of a 28 day cycle. August and September, her monoclonal peak decreased from high of 5.28 g per dL to 2.54 in late September 2021. Her IgG decreased from 7500 to about 3300 during the same time frame. September 2021, severe progressive pain which initially was felt to be related to other causes. She eventually had decreasing performance status and was placed on hospice in October 2021. January 2022, after pain management and continued support, the patient's symptoms definitely improved. She was on methadone twice daily with good control of her pain. She was subsequently discharged from hospice. Imaging Data Chest x-ray: Attestation: I have reviewed the pertinent imaging results. My impression: Chronic findings. Radiologist's impression: 1. Linear opacities primarily at the lung bases consistent with atelectasis or scarring. No pleural effusion or pneumothorax. 2. Multiple wedge compression deformities of multiple thoracic vertebral bodies, age indeterminate. 3. Numerous bilateral rib fractures, age indeterminate. None of these appear to be significantly displaced. CT scan - chest: Radiologist's impression: 1. The lungs are hyperinflated with mild bibasilar atelectasis and bronchiectasis. 2. Multiple age-indeterminate compression deformities, T3, T5, T7, T8, T9, T11, T12 and L1. 3. Chronic and age indeterminate fractures of the sternum. Remote bilateral rib fractures. 4. Small hiatal hernia. ECG Data Attestation: I personally reviewed and interpreted this ECG as follows: ECG interpretation date: 05/28/22 Interpretation: Normal sinus rhythm at a rate of 75. No evidence of acute ST or T-wave changes. QT and UT or in a intervals normal. Discharge Plan Discharge Clinical Impression: Sternal fracture, Multiple myeloma Patient Disposition: Home w/ Parent or Adult Condition: Improved Additional Instructions: For pain: Continue your methadone. You may add oxycodone as needed per directions. For further medication contact your physician at the [facility]. Return to the emergency room for worsening symptoms and as needed. [facility] physician Dr. Quezada office has been informed of your visit here today and potential need for further pain medication. Prescriptions: No Action dexamethasone 4 mg tablet 20 mg PO .weekly Rx Instructions: Take on day 1,8,15,22 of each cycle. epinephrine 0.3 mg/0.3 mL auto-injector 0.3 mg IM PRN acetaminophen 500 mg capsule 500 mg PO Q6H PRN bisacodyl 10 mg suppository 10 mg UT DAILY PRN lisinopril 20 mg tablet 20 mg PO DAILY sertraline 100 mg tablet 100 mg PO DAILY Label Comments: TAKE 1 TABLET(100MG) BY MOUTH EVERY MORNING levothyroxine 88 mcg tablet 88 mcg PO DAILY Label Comments: TAKE 1 TABLET BY MOUTH ONCE DAILY. lorazepam 0.5 mg tablet 0.5 mg PO Q6H PRN Label Comments: TAKE ONE TABLET (O.5MG) BY MOUTH EVERY SIX HOURS IF NEEDED FOR ANXIETY polyethylene glycol 3350 [Gavilax] 17 gram/dose powder 17 g PO DAILY PRN Label Comments: MIX 17 GMS OF POWDER IN LIQUID AND DRINK ONCE DAILY oxycodone 5 mg tablet 2.5 - 5 mg PO Q4H PRN Label Comments: TAKE 0.5-1 TABLET (2.5-5 MG) BY MOUTH EVERY 4 HOURS IF NEEDED (PAIN). lenalidomide [Revlimid] 15 mg capsule 15 mg PO DAILY Rx Instructions: Take days 21/ of revlamid cycle. Follow Up/Referrals: Hugo Quezada MD [Primary Care Provider] - Stand Alone Forms: [email or web address] Info Instructions
[2022-05-28] MEDS: OXYCODONE 5 MG TABLET PO (14:32)
== END 2022-05-28 15:38 | disposition home or self-care (01) ==
PROVIDERS: Emergency Provider Family Medicine; PCP Family Medicine
DX: M84.48XA Pathological fracture, other site, initial encounter for fracture (principal); M85.88 Other specified disorders of bone density and structure, other site; Z79.52 Long term (current) use of systemic steroids; R07.9 Chest pain, unspecified
CPT/HCPCS: 71046; 71110; 71250; 99284; A9270

== ENCOUNTER 2022-10-30 13:15 | Outpatient (RCR) | payer MEDICARE, BC, SELFPAY ==
--- NOTE | 2022-05-23 12:28 | ONC.NURNOTE ---
Treatment Schedule Zometa on hold until clearance- next dental appt scheduled for 06/04/22- dental work in process Calendar for appts scanned and emailed to Nehemiah palomino lab due 06/07- lab only for Revlimid start RTC Dr Boykin on 07/05/22 with lab the week prior including [place]
--- NOTE | 2022-05-31 15:25 | ONC.NURNOTE ---
Received call from Ruthie RN with [facility] saying pt was recently seen in ED for new sternal fracture and was discharged with oxycodone 2.5-5mg q 4 hrs prn #20. Pt is feeling better and is taking 5 mg once a day in the AM; she has 18 pills left. Ruthie reports that the prescription needs to be changed to either 2.5mg or 5 mg; staff at [facility] unable to give dose range per their protocol. Pt is doing well with 5mg once a day and is not showing s/s sedation; she is on Methadone BID for previous chronic condition. Reviewed with Deirdre Heaton APRN; to be followed up with [facility] provider and clarified for pt.
--- NOTE | 2022-06-05 15:58 | ONC.NURNOTE ---
Oxycodone refills may be filled by [facility] providers- as was discussed with Deirdre Rodriguez and Salima Palmer journalists and other writers called [employer] with follow up information Nehemiah is using the oxycodone infrequently at this point- few times per week Nehemiah will be in later this week for lab work and will reassess at that time
[2022-06-28 11:45] LABS: Basophils Absolute Auto 0.01 K/uL (0.00-0.30); Basophils Percent Auto 0.2 % (0.0-3.0); Hematocrit 33.8 % (33.0-51.0); Hemoglobin* 10.8 gm/dL (12.0-16.0); Immature Granulocytes Abs Auto 0.04 K/uL (0.00-0.30); Lymphocytes Percent Auto 12.9 % (20-44); Mean Corpuscular HGB Conc 32 gm/dL (32-36); Mean Corpuscular Hemoglobin 32 pg (26-34); Mean Corpuscular Volume 100 fL (80-100); Neutrophils Absolute Auto 3.74 K/uL (1.7-7.0); Neutrophils Percent Auto 68.2 % (42.0-72.0); Platelet Count* 220 K/uL (140-440); RDW Coefficient of Variation % 14.9 % (11.5-15.5); Red Blood Count 3.37 m/uL (4.00-5.20); White Blood Count* 5.49 K/uL (4.50-11.00)
[2022-06-28 11:52] LABS: Slide Review Reflex No
[2022-06-28 11:57] LABS: Albumin* 4.1 g/dL (3.3-5.0); Chloride* 108 mmol/L (96-114)
[2022-06-28 11:58] LABS: Potassium* 3.5 mmol/L (3.6-5.1); Sodium* 137 mmol/L (135-149)
[2022-06-28 12:00] LABS: Alkaline Phosphatase* 73 U/L (40-150); Aspartate Amino Transferase* 17 U/L (12-35); Bilirubin Total* 0.3 mg/dL (0.1-1.5); Carbon Dioxide* 21 mmol/L (20-32); Creatinine* 0.9 mg/dL (0.5-1.5); Estimated Glomerular Filt Rate 64 ml/min; Total Protein* 10.3 g/dL (6.0-8.3)
[2022-06-28 12:01] LABS: Alanine Aminotransferase* 12 U/L (4-35); Blood Urea Nitrogen* 23 mg/dL (7-30); Calcium* 9.1 mg/dL (8.4-10.6); Glucose* 137 mg/dL (60-115)
--- NOTE | 2022-06-28 16:16 | ONC.NURNOTE ---
Patient here for labs and wanted to let us know she hads had burning sensation under right arm for last 3-4 days that comes and goes. No rash or redness and sensation goes away when laying down
--- NOTE | 2022-06-28 16:18 | ONC.NURNOTE ---
Regarding right arm-talked with provider and at this time will watch and patient called and told that she should monitor for redness/swelling or increased pain and if anything more develops to call and let us know-she states its much better today.
[2022-07-09 21:40] LABS: Albumin 4.17 g/dL (3.75-5.01); Alpha 1 Globulin 0.43 g/dL (0.19-0.46); Alpha 2 Globulin 1.06 g/dL (0.48-1.05); Immunofixation IFE Done; Immunoglobulin A 27 mg/dL (68-408); Immunoglobulin G 2941 mg/dL (768-1632); Immunoglobulin M 18 mg/dL (35-263); Kappa Qnt Free Light Chains 92.68 mg/L (3.30-19.40); Kappa/Lambda Light Chain Ratio 13.77 (0.26-1.65); Lambda Qnt Free Light Chains 6.73 mg/L (5.71-26.30); Monoclonal Protein 3.13 g/dL; Total Protein, Serum 9.6 g/dL (6.3-8.2)
--- NOTE | 2022-07-13 10:36 | ONC.NURNOTE ---
Left message for patient to call regarding her lab results
[2022-08-03 13:10] LABS: Basophils Absolute Auto 0.04 K/uL (0.00-0.30); Basophils Percent Auto 0.6 % (0.0-3.0); Eosinophils Absolute Auto 0.22 K/uL (0.00-0.50); Eosinophils Percent Auto 3.4 % (0.0-7.0); Hematocrit 36.5 % (33.0-51.0); Hemoglobin* 11.4 gm/dL (12.0-16.0); Immature Granulocytes Abs Auto 0.03 K/uL (0.00-0.30); Lymphocytes Percent Auto 34.4 % (20-44); Mean Corpuscular HGB Conc 31 gm/dL (32-36); Mean Corpuscular Hemoglobin 32 pg (26-34); Mean Corpuscular Volume 101 fL (80-100); Monocytes Percent Auto 19.8 % (0.0-11.0); Neutrophils Percent Auto 41.3 % (42.0-72.0); Platelet Count* 294 K/uL (140-440); RDW Coefficient of Variation % 14.9 % (11.5-15.5)
[2022-08-03 13:21] LABS: Slide Review Reflex No
[2022-08-03 13:22] LABS: Chloride* 104 mmol/L (96-114)
[2022-08-03 13:23] LABS: Potassium* 4.3 mmol/L (3.6-5.1); Sodium* 138 mmol/L (135-149)
[2022-08-03 13:25] LABS: Bilirubin Total* 0.4 mg/dL (0.1-1.5); Carbon Dioxide* 28 mmol/L (20-32); Estimated Glomerular Filt Rate 56 ml/min
[2022-08-03 13:26] LABS: Alanine Aminotransferase* 15 U/L (4-35); Alkaline Phosphatase* 84 U/L (40-150); Aspartate Amino Transferase* 21 U/L (12-35); Blood Urea Nitrogen* 17 mg/dL (7-30); Glucose* 74 mg/dL (60-115); Total Protein* 9.1 g/dL (6.0-8.3)
[2022-08-06 21:25] LABS: Albumin 4.05 g/dL (3.75-5.01); Alpha 1 Globulin 0.42 g/dL (0.19-0.46); Alpha 2 Globulin 1.03 g/dL (0.48-1.05); Immunofixation IFE Done; Immunoglobulin A 31 mg/dL (68-408); Immunoglobulin G 4055 mg/dL (768-1632); Immunoglobulin M 23 mg/dL (35-263); Kappa Qnt Free Light Chains 104.38 mg/L (3.30-19.40); Kappa/Lambda Light Chain Ratio 14.03 (0.26-1.65); Lambda Qnt Free Light Chains 7.44 mg/L (5.71-26.30); Monoclonal Protein 2.52 g/dL; Total Protein, Serum 8.9 g/dL (6.3-8.2)
--- NOTE | 2022-08-16 11:22 | ONC.NURNOTE ---
patient phoned in today reports feeling emotional and physically low reports increase sweating which she states is a long standing experience that is associated with anxiety reports feeling very anxious today reports decreased appetitie and occaisional nausea she takes weekly steroids and has not been taking any pepcid or prilosec- music writer recommended she start on one of these meds she does take her steroids with food requesting help for above symptoms and anxiety plan discussed: discussed [facility] wellness group- she will consider attending next meeting -will discuss with SS per patient request -will follow up with Nehemiah on Saturday -suggested she call a friend to stop by for a visit- reports a large support system of very good friends -suggested she go see her PCP for evaluation of appetite changes and anxiety -Nehemiah agreeable to above, except for going to PCP at this time -next appt in [facility] is 08/27/22
--- NOTE | 2022-08-17 14:39 | PC.SOCIAL ---
Social work: Referral received from RN stating pt was open to receiving a phone call from social insurance analyst regarding resources and support for coping with her anxiety, diagnosis and treatment. computer networker called pt at home. Pt was appreciative of call, but stated she has visitors today and requested social insurance analyst call her back on Saturday to follow up. computer networker to call pt on Saturday08/20/22.
--- NOTE | 2022-08-20 10:25 | ONC.NURNOTE ---
Follow up call to Nehemiah. reports feeling better today, ate breakfast today without any nausea reports had a tough interaction with other residents at lunch on , and this was a challenging moment for Nehemiah. She has picked up pepcid, and will start with one in the am states that her social experience at [facility] is not well aligned with her needs Nehemiah looks forward to hearing back from SS
[2022-08-27 14:18] LABS: Albumin* 3.7 g/dL (3.3-5.0); Chloride* 105 mmol/L (96-114)
[2022-08-27 14:19] LABS: Potassium* 3.9 mmol/L (3.6-5.1); Sodium* 135 mmol/L (135-149)
[2022-08-27 14:21] LABS: Bilirubin Total* 0.3 mg/dL (0.1-1.5); Carbon Dioxide* 23 mmol/L (20-32); Creatinine* 0.9 mg/dL (0.5-1.5); Estimated Glomerular Filt Rate 64 ml/min; Total Protein* 8.5 g/dL (6.0-8.3)
[2022-08-27 14:22] LABS: Alanine Aminotransferase* 15 U/L (4-35); Alkaline Phosphatase* 85 U/L (40-150); Aspartate Amino Transferase* 18 U/L (12-35); Blood Urea Nitrogen* 16 mg/dL (7-30); Calcium* 8.6 mg/dL (8.4-10.6); Glucose* 134 mg/dL (60-115)
[2022-08-27 15:01] LABS: Basophils Absolute Auto 0.04 K/uL (0.00-0.30); Basophils Percent Auto 0.6 % (0.0-3.0); Eosinophils Absolute Auto 0.34 K/uL (0.00-0.50); Eosinophils Percent Auto 5.5 % (0.0-7.0); Hemoglobin* 11.8 gm/dL (12.0-16.0); Immature Granulocytes Abs Auto 0.01 K/uL (0.00-0.30); Immature Granulocytes Pct Auto 0.2 %; Lymphocytes Percent Auto 18.3 % (20-44); Mean Corpuscular HGB Conc 32 gm/dL (32-36); Mean Corpuscular Hemoglobin 31 pg (26-34); Mean Corpuscular Volume 98 fL (80-100); Monocytes Percent Auto 20.5 % (0.0-11.0); Neutrophils Absolute Auto 3.38 K/uL (1.7-7.0); Neutrophils Percent Auto 54.9 % (42.0-72.0); Platelet Count* 418 K/uL (140-440); RDW Coefficient of Variation % 14.5 % (11.5-15.5); Red Blood Count 3.78 m/uL (4.00-5.20); White Blood Count* 6.16 K/uL (4.50-11.00)
[2022-08-27 15:04] LABS: Slide Review Reflex No
--- NOTE | 2022-09-13 15:48 | ONC.NURNOTE ---
Energy Analyst unable to reorder lenolidomide that is due on 09/17/22 lead technical writer left message to verify patient has taken her November doses left message-on voice mail to call [facility] and let staff know date she started and stopped most recent revlimid dose she was due from 08/20- 09/10/22
[2022-09-19 04:37] LABS: Kappa Qnt Free Light Chains 78.86 mg/L (3.30-19.40); Kappa-Lambda Qt FLC W/ Ratio 5.41 (0.26-1.65); Lambda Qnt Free Light Chains 14.59 mg/L (5.71-26.30)
[2022-09-24 14:45] LABS: Basophils Absolute Auto 0.08 K/uL (0.00-0.30); Basophils Percent Auto 1.1 % (0.0-3.0); Eosinophils Absolute Auto 0.29 K/uL (0.00-0.50); Eosinophils Percent Auto 3.9 % (0.0-7.0); Hematocrit 41.5 % (33.0-51.0); Immature Granulocytes Abs Auto 0.02 K/uL (0.00-0.30); Immature Granulocytes Pct Auto 0.3 %; Lymphocytes Absolute Auto 1.65 K/uL (0.90-2.90); Lymphocytes Percent Auto 22.2 % (20-44); Mean Corpuscular HGB Conc 31 gm/dL (32-36); Mean Corpuscular Hemoglobin 30 pg (26-34); Mean Corpuscular Volume 97 fL (80-100); Monocytes Percent Auto 16.4 % (0.0-11.0); Neutrophils Absolute Auto 4.17 K/uL (1.7-7.0); Neutrophils Percent Auto 56.1 % (42.0-72.0); Platelet Count* 324 K/uL (140-440); RDW Coefficient of Variation % 15.2 % (11.5-15.5); Red Blood Count 4.27 m/uL (4.00-5.20); White Blood Count* 7.43 K/uL (4.50-11.00)
[2022-09-24 14:47] LABS: Slide Review Reflex No
[2022-09-24 15:10] LABS: Chloride* 108 mmol/L (96-114)
[2022-09-24 15:11] LABS: Sodium* 140 mmol/L (135-149)
[2022-09-24 15:13] LABS: Creatinine* 0.8 mg/dL (0.5-1.5); Estimated Glomerular Filt Rate 74 ml/min
[2022-09-24 15:14] LABS: Alkaline Phosphatase* 82 U/L (40-150); Aspartate Amino Transferase* 27 U/L (12-35); Bilirubin Total* 0.4 mg/dL (0.1-1.5); Blood Urea Nitrogen* 16 mg/dL (7-30); Calcium* 8.7 mg/dL (8.4-10.6); Carbon Dioxide* 27 mmol/L (20-32); Glucose* 97 mg/dL (60-115)
[2022-09-24 16:31] LABS: Alanine Aminotransferase* 13 U/L (4-35)
[2022-10-30 14:39] LABS: Basophils Absolute Auto 0.03 K/uL (0.00-0.30); Basophils Percent Auto 0.5 % (0.0-3.0); Eosinophils Absolute Auto 0.36 K/uL (0.00-0.50); Eosinophils Percent Auto 5.5 % (0.0-7.0); Hematocrit 41.3 % (33.0-51.0); Hemoglobin* 12.9 gm/dL (12.0-16.0); Immature Granulocytes Abs Auto 0.05 K/uL (0.00-0.30); Immature Granulocytes Pct Auto 0.8 %; Lymphocytes Absolute Auto 1.43 K/uL (0.90-2.90); Lymphocytes Percent Auto 21.7 % (20-44); Mean Corpuscular HGB Conc 31 gm/dL (32-36); Mean Corpuscular Hemoglobin 30 pg (26-34); Mean Corpuscular Volume 96 fL (80-100); Monocytes Percent Auto 15.5 % (0.0-11.0); Platelet Count* 276 K/uL (140-440); RDW Coefficient of Variation % 15.5 % (11.5-15.5); White Blood Count* 6.59 K/uL (4.50-11.00)
[2022-10-30 14:55] LABS: Slide Review Reflex No
[2022-10-30 15:13] LABS: Albumin* 3.8 g/dL (3.3-5.0); Chloride* 105 mmol/L (96-114)
[2022-10-30 15:14] LABS: Sodium* 138 mmol/L (135-149)
[2022-10-30 15:16] LABS: Bilirubin Total* 0.4 mg/dL (0.1-1.5); Carbon Dioxide* 27 mmol/L (20-32); Creatinine* 0.8 mg/dL (0.5-1.5); Estimated Glomerular Filt Rate 74 ml/min
[2022-10-30 15:17] LABS: Alanine Aminotransferase* 15 U/L (4-35); Alkaline Phosphatase* 86 U/L (40-150); Aspartate Amino Transferase* 23 U/L (12-35); Blood Urea Nitrogen* 15 mg/dL (7-30); Calcium* 8.5 mg/dL (8.4-10.6); Glucose* 98 mg/dL (60-115); Total Protein* 7.5 g/dL (6.0-8.3)
--- NOTE | 2022-11-05 13:41 | ONC.NURNOTE ---
Call to professional dr hernadez group refaxed dental clearance for zoledronic acid start pending signed release from dentist unclear if patient has completed her scheduled dental work that has been ongoing for many months
== END 2022-11-10 23:59 | disposition home or self-care (01) ==
LOC: CCIC 13:15
PROVIDERS: Internal Medicine Hematology & Oncology; Nurse Practitioner Family; PCP Family Medicine; Referring Provider Family Medicine; Visit Provider Internal Medicine Medical Oncology
DX: C90.00 Multiple myeloma not having achieved remission (principal); B18.2 Chronic viral hepatitis C
CPT/HCPCS: 36415; 80053; 82784; 83520; 84155; 84165; 85025; 86334; 99212; 99214; 99215

== ENCOUNTER 2023-05-16 08:44 | Outpatient (RCR) | payer MEDICARE, BC, SELFPAY ==
[2022-11-19 10:51] LABS: Basophils Absolute Auto 0.03 K/uL (0.00-0.30); Basophils Percent Auto 0.4 % (0.0-3.0); Eosinophils Absolute Auto 0.27 K/uL (0.00-0.50); Eosinophils Percent Auto 3.8 % (0.0-7.0); Hematocrit 43.7 % (33.0-51.0); Hemoglobin* 13.7 gm/dL (12.0-16.0); Immature Granulocytes Abs Auto 0.01 K/uL (0.00-0.30); Immature Granulocytes Pct Auto 0.1 %; Lymphocytes Absolute Auto 1.47 K/uL (0.90-2.90); Lymphocytes Percent Auto 20.6 % (20-44); Mean Corpuscular HGB Conc 31 gm/dL (32-36); Mean Corpuscular Hemoglobin 30 pg (26-34); Mean Corpuscular Volume 95 fL (80-100); Monocytes Percent Auto 17.6 % (0.0-11.0); Neutrophils Absolute Auto 4.11 K/uL (1.7-7.0); Neutrophils Percent Auto 57.5 % (42.0-72.0); Platelet Count* 310 K/uL (140-440); RDW Coefficient of Variation % 15.4 % (11.5-15.5); Red Blood Count 4.58 m/uL (4.00-5.20); White Blood Count* 7.15 K/uL (4.50-11.00)
[2022-11-19 11:02] LABS: Slide Review Reflex No
[2022-11-19 11:05] LABS: Chloride* 110 mmol/L (96-114); Potassium* 3.9 mmol/L (3.6-5.1); Sodium* 142 mmol/L (135-149)
[2022-11-19 11:07] LABS: Creatinine* 0.8 mg/dL (0.5-1.5); Estimated Glomerular Filt Rate 74 ml/min
[2022-11-19 11:08] LABS: Alanine Aminotransferase* 16 U/L (4-35); Alkaline Phosphatase* 78 U/L (40-150); Aspartate Amino Transferase* 23 U/L (12-35); Bilirubin Total* 0.4 mg/dL (0.1-1.5); Blood Urea Nitrogen* 15 mg/dL (7-30); Calcium* 8.9 mg/dL (8.4-10.6); Carbon Dioxide* 27 mmol/L (20-32); Glucose* 88 mg/dL (60-115); Total Protein* 7.7 g/dL (6.0-8.3)
[2022-11-21 22:26] LABS: Albumin 3.84 g/dL (3.75-5.01); Alpha 2 Globulin 0.82 g/dL (0.48-1.05); Immunofixation IFE Done; Immunoglobulin A 88 mg/dL (68-408); Immunoglobulin G 1790 mg/dL (768-1632); Immunoglobulin M 50 mg/dL (35-263); Kappa Qnt Free Light Chains 45.08 mg/L (3.30-19.40); Kappa/Lambda Light Chain Ratio 3.85 (0.26-1.65); Lambda Qnt Free Light Chains 11.72 mg/L (5.71-26.30); Total Protein, Serum 7.1 g/dL (6.3-8.2)
[2022-12-17 09:49] LABS: Basophils Absolute Auto 0.03 K/uL (0.00-0.30); Basophils Percent Auto 0.5 % (0.0-3.0); Eosinophils Absolute Auto 0.33 K/uL (0.00-0.50); Eosinophils Percent Auto 5.7 % (0.0-7.0); Hematocrit 45.1 % (33.0-51.0); Hemoglobin* 14.3 gm/dL (12.0-16.0); Immature Granulocytes Abs Auto 0.02 K/uL (0.00-0.30); Immature Granulocytes Pct Auto 0.3 %; Lymphocytes Absolute Auto 1.24 K/uL (0.90-2.90); Lymphocytes Percent Auto 21.2 % (20-44); Mean Corpuscular HGB Conc 32 gm/dL (32-36); Mean Corpuscular Hemoglobin 30 pg (26-34); Mean Corpuscular Volume 95 fL (80-100); Monocytes Percent Auto 19.2 % (0.0-11.0); Neutrophils Percent Auto 53.1 % (42.0-72.0); Platelet Count* 241 K/uL (140-440); Red Blood Count 4.77 m/uL (4.00-5.20); White Blood Count* 5.84 K/uL (4.50-11.00)
[2022-12-17 09:51] LABS: Slide Review Reflex No
[2022-12-17 10:04] LABS: Albumin* 3.9 g/dL (3.3-5.0); Chloride* 108 mmol/L (96-114)
[2022-12-17 10:05] LABS: Potassium* 3.7 mmol/L (3.6-5.1); Sodium* 141 mmol/L (135-149)
[2022-12-17 10:07] LABS: Alkaline Phosphatase* 74 U/L (40-150); Aspartate Amino Transferase* 20 U/L (12-35); Bilirubin Total* 0.5 mg/dL (0.1-1.5); Blood Urea Nitrogen* 12 mg/dL (7-30); Carbon Dioxide* 28 mmol/L (20-32); Creatinine* 0.8 mg/dL (0.5-1.5); Estimated Glomerular Filt Rate 74 ml/min; Total Protein* 7.5 g/dL (6.0-8.3)
[2022-12-17 10:08] LABS: Alanine Aminotransferase* 16 U/L (4-35); Calcium* 8.9 mg/dL (8.4-10.6); Glucose* 87 mg/dL (60-115)
[2023-01-14 13:40] LABS: Basophils Absolute Auto 0.05 K/uL (0.00-0.30); Basophils Percent Auto 0.7 % (0.0-3.0); Eosinophils Absolute Auto 0.35 K/uL (0.00-0.50); Eosinophils Percent Auto 4.9 % (0.0-7.0); Hematocrit 42.8 % (33.0-51.0); Hemoglobin* 13.4 gm/dL (12.0-16.0); Immature Granulocytes Abs Auto 0.02 K/uL (0.00-0.30); Immature Granulocytes Pct Auto 0.3 %; Lymphocytes Absolute Auto 1.48 K/uL (0.90-2.90); Lymphocytes Percent Auto 20.9 % (20-44); Mean Corpuscular HGB Conc 31 gm/dL (32-36); Mean Corpuscular Hemoglobin 30 pg (26-34); Mean Corpuscular Volume 97 fL (80-100); Monocytes Percent Auto 19.6 % (0.0-11.0); Neutrophils Percent Auto 53.6 % (42.0-72.0); Platelet Count* 240 K/uL (140-440); RDW Coefficient of Variation % 14.3 % (11.5-15.5); Red Blood Count 4.41 m/uL (4.00-5.20); White Blood Count* 7.09 K/uL (4.50-11.00)
[2023-01-14 13:41] LABS: Slide Review Reflex No
[2023-01-14 13:58] LABS: Albumin* 3.8 g/dL (3.3-5.0); Chloride* 105 mmol/L (96-114); Potassium* 3.9 mmol/L (3.6-5.1); Sodium* 140 mmol/L (135-149)
[2023-01-14 14:00] LABS: Creatinine* 0.8 mg/dL (0.5-1.5); Estimated Glomerular Filt Rate 74 ml/min
[2023-01-14 14:01] LABS: Alanine Aminotransferase* 16 U/L (4-35); Alkaline Phosphatase* 73 U/L (40-150); Aspartate Amino Transferase* 21 U/L (12-35); Bilirubin Total* 0.3 mg/dL (0.1-1.5); Blood Urea Nitrogen* 13 mg/dL (7-30); Calcium* 8.5 mg/dL (8.4-10.6); Carbon Dioxide* 32 mmol/L (20-32); Glucose* 112 mg/dL (60-115); Total Protein* 7.1 g/dL (6.0-8.3)
--- NOTE | 2023-01-16 11:05 | ONC.NURNOTE ---
Labs noted and called to Nehemiah- within parameters to start Revlimid reports intermittant nausea prior to a BM no other concerns, reports feeling well
[2023-01-16 21:30] LABS: Albumin 3.83 g/dL (3.75-5.01); Alpha 1 Globulin 0.29 g/dL (0.19-0.46); Alpha 2 Globulin 0.78 g/dL (0.48-1.05); Immunofixation IFE Done; Immunoglobulin A 106 mg/dL (68-408); Immunoglobulin G 1354 mg/dL (768-1632); Immunoglobulin M 42 mg/dL (35-263); Kappa Qnt Free Light Chains 32.54 mg/L (3.30-19.40); Kappa/Lambda Light Chain Ratio 2.54 (0.26-1.65); Lambda Qnt Free Light Chains 12.83 mg/L (5.71-26.30); Monoclonal Protein 0.96 g/dL; Total Protein, Serum 6.7 g/dL (6.3-8.2)
[2023-02-11 09:53] LABS: Basophils Absolute Auto 0.03 K/uL (0.00-0.30); Basophils Percent Auto 0.5 % (0.0-3.0); Eosinophils Absolute Auto 0.33 K/uL (0.00-0.50); Eosinophils Percent Auto 5.7 % (0.0-7.0); Hematocrit 42.4 % (33.0-51.0); Hemoglobin* 13.3 gm/dL (12.0-16.0); Immature Granulocytes Abs Auto 0.03 K/uL (0.00-0.30); Immature Granulocytes Pct Auto 0.5 %; Lymphocytes Absolute Auto 1.19 K/uL (0.90-2.90); Lymphocytes Percent Auto 20.4 % (20-44); Mean Corpuscular HGB Conc 31 gm/dL (32-36); Mean Corpuscular Hemoglobin 30 pg (26-34); Mean Corpuscular Volume 96 fL (80-100); Monocytes Percent Auto 17.3 % (0.0-11.0); Neutrophils Absolute Auto 3.24 K/uL (1.7-7.0); Neutrophils Percent Auto 55.6 % (42.0-72.0); Platelet Count* 216 K/uL (140-440); RDW Coefficient of Variation % 13.8 % (11.5-15.5); Red Blood Count 4.42 m/uL (4.00-5.20); White Blood Count* 5.83 K/uL (4.50-11.00)
[2023-02-11 10:25] LABS: Slide Review Reflex No
[2023-02-11 10:49] LABS: Albumin* 3.9 g/dL (3.3-5.0); Chloride* 107 mmol/L (96-114)
[2023-02-11 10:50] LABS: Potassium* 3.6 mmol/L (3.6-5.1); Sodium* 141 mmol/L (135-149)
[2023-02-11 10:52] LABS: Alanine Aminotransferase* 18 U/L (4-35); Alkaline Phosphatase* 79 U/L (40-150); Aspartate Amino Transferase* 21 U/L (12-35); Bilirubin Total* 0.4 mg/dL (0.1-1.5); Blood Urea Nitrogen* 13 mg/dL (7-30); Carbon Dioxide* 29 mmol/L (20-32); Creatinine* 0.7 mg/dL (0.5-1.5); Estimated Glomerular Filt Rate 86 ml/min; Glucose* 86 mg/dL (60-115)
[2023-02-11 10:53] LABS: Calcium* 8.8 mg/dL (8.4-10.6)
--- NOTE | 2023-02-12 12:53 | ONC.NURNOTE ---
labs reviewed by Dr Rodriguez and results called to Nehemiah She will start her Revlimid tomorrow and has follow up next week on Saturday
--- NOTE | 2023-03-07 16:10 | ONC.NURNOTE ---
Nehemiah called with the question of was it ok for Kristal CATALAN to call pharmacy for REvlimid on behalf of Dr. Rodriguez. Pt reassured.
[2023-03-11 13:44] LABS: Basophils Absolute Auto 0.06 K/uL (0.00-0.30); Eosinophils Absolute Auto 0.27 K/uL (0.00-0.50); Eosinophils Percent Auto 4.3 % (0.0-7.0); Hematocrit 42.2 % (33.0-51.0); Hemoglobin* 13.3 gm/dL (12.0-16.0); Immature Granulocytes Abs Auto 0.01 K/uL (0.00-0.30); Immature Granulocytes Pct Auto 0.2 %; Lymphocytes Absolute Auto 1.38 K/uL (0.90-2.90); Lymphocytes Percent Auto 21.9 % (20-44); Mean Corpuscular HGB Conc 32 gm/dL (32-36); Mean Corpuscular Hemoglobin 31 pg (26-34); Mean Corpuscular Volume 97 fL (80-100); Monocytes Percent Auto 18.9 % (0.0-11.0); Neutrophils Percent Auto 53.7 % (42.0-72.0); Platelet Count* 238 K/uL (140-440); Red Blood Count 4.35 m/uL (4.00-5.20); White Blood Count* 6.31 K/uL (4.50-11.00)
[2023-03-11 13:58] LABS: Slide Review Reflex No
[2023-03-11 14:00] LABS: Albumin* 3.9 g/dL (3.3-5.0); Chloride* 106 mmol/L (96-114)
[2023-03-11 14:01] LABS: Potassium* 4.2 mmol/L (3.6-5.1); Sodium* 141 mmol/L (135-149)
[2023-03-11 14:03] LABS: Bilirubin Total* 0.4 mg/dL (0.1-1.5); Creatinine* 0.8 mg/dL (0.5-1.5); Estimated Glomerular Filt Rate 74 ml/min
[2023-03-11 14:04] LABS: Alanine Aminotransferase* 14 U/L (4-35); Alkaline Phosphatase* 67 U/L (40-150); Aspartate Amino Transferase* 20 U/L (12-35); Blood Urea Nitrogen* 13 mg/dL (7-30); Calcium* 8.9 mg/dL (8.4-10.6); Carbon Dioxide* 31 mmol/L (20-32); Glucose* 93 mg/dL (60-115)
--- NOTE | 2023-03-12 12:36 | ONC.NURNOTE ---
Nehemiah called to state that she has deep concerns about generic lenalidomide she understood that our oncology team was not familiar with the generic short story writer states that was a communication misunderstanding- the office does endorse the option of lenalidomide instead of the brand Revlimid short story writer explained that using generic should not pose any increase in side effects as Nehemiah reports that she has tolerated the Revlimid well short story writer also explained that she will have longer coverage of copay with the generic option
--- NOTE | 2023-04-08 11:31 | ONC.NURNOTE ---
Recieved call from [facility] stating pt's insurance is out of network and they are unable to ship out pt's revlimid. Per [facility], pt should have drug filled through [facility] specialty pharmacy. Tinsmith Helper then called patient, who states she hasn't had any change in her insurance. Tinsmith Helper then called [facility] pharmacy to clarify reasoning for billing rejection. They were able to determine they were trying to run the drug through the wrong insurance information. Pharmacist was able to correct this and insurance did approve for it to be sent out by [facility] specialty however, there is a co pay of $226.63. Pt previously did not have a co-pay. When real estate underwriter asked about the co-pay, [facility] stated the co-pay assistance funds had run out. Tinsmith Helper asked if the shipment could be sent out today so that there was no delay in pt's treatment. They stated they will try to send out today once pt calls to initiate delivery and pay co-pay. Tinsmith Helper called pt with co pay amount and number to call ( ). Pt verbalized understanding of plan of care.
[2023-04-08 13:28] LABS: Basophils Absolute Auto 0.03 K/uL (0.00-0.30); Basophils Percent Auto 0.5 % (0.0-3.0); Eosinophils Percent Auto 4.9 % (0.0-7.0); Hematocrit 41.3 % (33.0-51.0); Hemoglobin* 13.2 gm/dL (12.0-16.0); Immature Granulocytes Abs Auto 0.02 K/uL (0.00-0.30); Immature Granulocytes Pct Auto 0.3 %; Lymphocytes Absolute Auto 1.44 K/uL (0.90-2.90); Lymphocytes Percent Auto 23.6 % (20-44); Mean Corpuscular HGB Conc 32 gm/dL (32-36); Mean Corpuscular Hemoglobin 31 pg (26-34); Mean Corpuscular Volume 95 fL (80-100); Monocytes Percent Auto 17.1 % (0.0-11.0); Neutrophils Absolute Auto 3.26 K/uL (1.7-7.0); Neutrophils Percent Auto 53.6 % (42.0-72.0); Platelet Count* 210 K/uL (140-440); RDW Coefficient of Variation % 13.8 % (11.5-15.5); Red Blood Count 4.33 m/uL (4.00-5.20); White Blood Count* 6.09 K/uL (4.50-11.00)
[2023-04-08 13:30] LABS: Slide Review Reflex No
[2023-04-08 13:36] LABS: Albumin* 3.8 g/dL (3.3-5.0); Chloride* 105 mmol/L (96-114); Sodium* 140 mmol/L (135-149)
[2023-04-08 13:37] LABS: Potassium* 3.8 mmol/L (3.6-5.1)
[2023-04-08 13:39] LABS: Alkaline Phosphatase* 76 U/L (40-150); Aspartate Amino Transferase* 20 U/L (12-35); Bilirubin Total* 0.4 mg/dL (0.1-1.5); Blood Urea Nitrogen* 13 mg/dL (7-30); Carbon Dioxide* 29 mmol/L (20-32); Creatinine* 0.8 mg/dL (0.5-1.5); Estimated Glomerular Filt Rate 74 ml/min; Total Protein* 6.8 g/dL (6.0-8.3)
[2023-04-08 13:40] LABS: Alanine Aminotransferase* 16 U/L (4-35); Calcium* 8.9 mg/dL (8.4-10.6); Glucose* 95 mg/dL (60-115)
--- NOTE | 2023-04-11 09:26 | ONC.NURNOTE ---
[facility] funds have been depleted and she can not reenroll until the current enrollment time frame expires in Jun information writer discussed with [facility] about other available grants for myeloma [facility] will call patient in the next 1-5 days to enroll in a different fund This was called to Kalyani- kalyani paid $220 out of pocket for this months medication she will be starting late- on Saturday04/12/23 instead of Saturday Kalyani has been ordering revlimid instead of lenalidomide- this information writer has recommended she order the generic as her funding with last longer Kalyani states understanding next appts reviewed with Kalyani
[2023-04-13 01:24] LABS: Albumin 3.81 g/dL (3.75-5.01); Alpha 1 Globulin 0.26 g/dL (0.19-0.46); Alpha 2 Globulin 0.72 g/dL (0.48-1.05); Immunofixation IFE Done; Immunoglobulin A 116 mg/dL (68-408); Immunoglobulin G 1085 mg/dL (768-1632); Immunoglobulin M 39 mg/dL (35-263); Kappa Qnt Free Light Chains 28.54 mg/L (3.30-19.40); Kappa/Lambda Light Chain Ratio 2.31 (0.26-1.65); Lambda Qnt Free Light Chains 12.38 mg/L (5.71-26.30); Monoclonal Protein 0.74 g/dL; Total Protein, Serum 6.4 g/dL (6.3-8.2)
--- NOTE | 2023-04-18 16:39 | ONC.NURNOTE ---
myeloma labs reviewed by Dr Rodriguez today as improved and stable message left for patient to call office appt from Saturday04/22/23 will need to be moved to 05/16/23 and next lab due 05/07/23 continue with 21 days of lenolidamide Q 4 week
[2023-05-06 13:23] LABS: Basophils Absolute Auto 0.04 K/uL (0.00-0.30); Basophils Percent Auto 0.6 % (0.0-3.0); Eosinophils Absolute Auto 0.19 K/uL (0.00-0.50); Hematocrit 42.4 % (33.0-51.0); Hemoglobin* 13.6 gm/dL (12.0-16.0); Immature Granulocytes Abs Auto 0.03 K/uL (0.00-0.30); Immature Granulocytes Pct Auto 0.5 %; Lymphocytes Absolute Auto 1.47 K/uL (0.90-2.90); Lymphocytes Percent Auto 22.8 % (20-44); Mean Corpuscular HGB Conc 32 gm/dL (32-36); Mean Corpuscular Hemoglobin 31 pg (26-34); Mean Corpuscular Volume 96 fL (80-100); Neutrophils Absolute Auto 3.42 K/uL (1.7-7.0); Neutrophils Percent Auto 53.1 % (42.0-72.0); Platelet Count* 260 K/uL (140-440); Red Blood Count 4.43 m/uL (4.00-5.20); White Blood Count* 6.44 K/uL (4.50-11.00)
[2023-05-06 13:35] LABS: Slide Review Reflex No
[2023-05-06 13:37] LABS: Albumin* 3.8 g/dL (3.3-5.0); Chloride* 107 mmol/L (96-114); Sodium* 139 mmol/L (135-149)
[2023-05-06 13:38] LABS: Potassium* 3.7 mmol/L (3.6-5.1)
[2023-05-06 13:40] LABS: Alkaline Phosphatase* 70 U/L (40-150); Aspartate Amino Transferase* 19 U/L (12-35); Bilirubin Total* 0.3 mg/dL (0.1-1.5); Blood Urea Nitrogen* 13 mg/dL (7-30); Carbon Dioxide* 28 mmol/L (20-32); Creatinine* 0.9 mg/dL (0.5-1.5); Estimated Glomerular Filt Rate 63 ml/min; Total Protein* 6.8 g/dL (6.0-8.3)
[2023-05-06 13:41] LABS: Alanine Aminotransferase* 17 U/L (4-35); Calcium* 8.7 mg/dL (8.4-10.6); Glucose* 90 mg/dL (60-115)
== END 2023-05-18 23:59 | disposition home or self-care (01) ==
LOC: CCIC 08:44
PROVIDERS: Clinical Nurse Specialist; Internal Medicine Hematology & Oncology; Internal Medicine Medical Oncology; PCP Family Medicine; Referring Provider Family Medicine; Visit Provider Internal Medicine Hematology & Oncology
DX: C90.00 Multiple myeloma not having achieved remission (principal); M54.9 Dorsalgia, unspecified; B18.2 Chronic viral hepatitis C
CPT/HCPCS: 36415; 80053; 82784; 83520; 84155; 84165; 85025; 86334; 99212; 99214

== ENCOUNTER 2023-09-23 16:02 | Emergency (ER) | payer MEDICARE, BC, SELFPAY ==
[2023-09-23] VITALS (14 sets, daily range): BP systolic 139–156; BP diastolic 56–75; PULSE 80–92; RESP 20–22; TEMP 37.6; O2SAT 91–96; BMI 25.1
--- NOTE | 2023-09-23 16:34 | ED.GENADULT ---
HPI - General Adult General Time Seen by Provider: 16:35 Date Seen: 09/23/23 Chief complaint: Cough Stated complaint: Cold, also has cancer Time Seen by Provider: 09/23/23 16:10 Source: patient and RN notes reviewed Mode of arrival: ambulatory Limitations: no limitations History of Present Illness HPI narrative: This 83-year-old female whom resides at [facility] was requested to come to the ER to rule out pneumonia. Patient is had a cold for about a day and a half. She is endorsing bilateral eyebrow pain, sinus pressure there, upper teeth pressure both sides, nasal congestion. She has had nausea but no active vomiting. She has had a productive cough, believes it may be coming from postnasal drainage. When she does start coughing, sometimes it may make her feel like she is going to vomit. She is not endorsed fevers but is not feeling well. She has no diarrhea. She had negative COVID test at [facility]. She does have underlying history of multiple myeloma reportedly in remission. She has no history of any cardiopulmonary underlying diseases such is heart disease, history of pneumonia, no COPD or asthma per her report. She also reports that her ears feel full. No otalgia. She states she has been coughing so much that her throat feels sore from this. Related Data Home Medications Medication Instructions Recorded Confirmed epinephrine 0.3 mg/0.3 mL 0.3 mg IM PRN 04/05/22 07/18/23 injection, auto-injector lenalidomide 15 mg capsule 15 mg PO .COMPLEX 04/05/22 07/18/23 (Revlimid) levothyroxine 88 mcg tablet 88 mcg PO DAILY 04/05/22 07/18/23 lisinopril 20 mg tablet 20 mg PO DAILY 04/05/22 07/18/23 lorazepam 0.5 mg tablet 0.5 mg PO Q6H PRN 04/05/22 07/18/23 polyethylene glycol 3350 17 17 g PO DAILY PRN 04/05/22 07/18/23 gram/dose oral powder (Gavilax) sertraline 100 mg tablet 100 mg PO DAILY 04/05/22 07/18/23 methadone 5 mg tablet 5 mg PO Q12H 08/03/22 07/18/23 famotidine 20 mg tablet (Acid 20 mg PO DAILY 08/20/22 07/18/23 Controller) oxycodone 5 mg tablet 2.5 - 5 mg PO Q4H PRN 11/26/22 07/18/23 Previous Rx's Medication Instructions Recorded dexamethasone 4 mg tablet 20 mg (5 x 4 mg) PO .weekly #20 08/27/23 tabs oseltamivir 30 mg capsule (Tamiflu) 30 mg PO BID 5 days #9 caps 09/23/23 Allergies Allergy/AdvReac Type Severity Reaction Status Date / Time peanut oil Allergy Severe Anaphylaxis Verified 07/18/23 09:22 tree nut Allergy Unknown Verified 07/18/23 09:22 nuts Allergy Severe Uncoded 04/05/22 17:27 BEES Allergy Mild Uncoded 04/05/22 17:27 HYMENOPTERA ALLERGENIC Allergy Unknown Uncoded 04/05/22 17:27 EXTRACT Review of Systems Status of ROS: Reports: 6 or more systems reviewed and unremarkable except as noted in History and below [facility] Medical History Tachycardia (05/02/12) ?R00.0 - Tachycardia, unspecified (ICD-10) Muscle spasm ?M62.838 - Other muscle spasm (ICD-10) Grief ?F43.21 - Adjustment disorder with depressed mood (ICD-10) Compression fracture of body of thoracic vertebra ?S22.000A - Wedge compression fracture of unspecified thoracic vertebra, initial encounter for closed fracture (ICD-10) Back pain ?M54.9 - Dorsalgia, unspecified (ICD-10) Anxiety ?F41.9 - Anxiety disorder, unspecified (ICD-10) Social History Smoking Status: Former smoker Do you use any of these nicotine containing products: None How often do you have a drink containing alcohol: never How often do you have six or more drinks on one occasion: Never AUDIT-C Alcohol total score: 0 Non-prescribed substance use: denies use service: No Exam Const: Vital Signs, click to edit/add: Vital Signs - 24 hr 09/23/23 16:09 09/23/23 16:58 09/23/23 16:59 Temperature 99.6 F Pulse Rate 84 85 Pulse Rate [Pulse Oximeter] 89 Respiratory Rate 22 Blood Pressure 150/71 H Blood Pressure [Ri ght Upper Arm] 155/75 H Pulse Oximetry 94 96 93 Oxygen Delivery Me thod Room Air 09/23/23 17:00 09/23/23 17:01 09/23/23 17:02 Temperature Pulse Rate 82 87 Pulse Rate [Pulse Oximeter] Respiratory Rate Blood Pressure 139/63 Blood Pressure [Ri ght Upper Arm] Pulse Oximetry 94 94 94 Oxygen Delivery Me thod 09/23/23 17:02 09/23/23 17:15 09/23/23 17:30 Temperature Pulse Rate 85 82 82 Pulse Rate [Pulse Oximeter] Respiratory Rate Blood Pressure Blood Pressure [Ri ght Upper Arm] Pulse Oximetry 92 91 93 Oxygen Delivery Me thod 09/23/23 17:45 09/23/23 18:00 09/23/23 18:01 Temperature Pulse Rate 92 83 84 Pulse Rate [Pulse Oximeter] Respiratory Rate Blood Pressure 149/56 H Blood Pressure [Ri ght Upper Arm] Pulse Oximetry 94 95 96 Oxygen Delivery Me thod Patient is an 83-year-old female seen in exam room 4, she is alert, interactive, no apparent distress. She does have kyphosis. Sclera clear, extraocular muscles intact, symmetrical facial function. Patient has normal speech, no hoarseness, able speak in complete sentences. Symmetrical facial function. Neck is supple, no jugular venous distension, no cervical adenopathy. Lungs are clear, good air entry, no wheezing or crackles. She has no tachypnea. CV regular rate and rhythm, no murmur, normal S1-S2, no S3-S4. Abdomen is soft, nontender, nondistended. Documenting provider has reviewed patient's vital signs: yes Course Course ED Course: Will do triple viral swab, obtain portable CXR, basic labs. This certainly could be viral process vs bacterial. Labs and imaging will help us in the process. She is hemodynamically stable, no hypoxia. Reevaluation(s) Time of Reevaluation #1: 17:57 Reevaluation #1: Reviewed with patient that she has influenza A, she states that she got the shots though. Reviewed with her that the immunization does not always stop infection from developing but has certainly been shown to diminish risk of severe disease requiring hospitalization and from influenza. Thus, it is highly recommended in her age category that she still continue to receive this immunization. She is wanting antiviral, did review with her Tamiflu. I would give her renally dosed Tamiflu at 30 mg. She is requesting the 1st dose here, unlikely to be able to get it at her care facility at this time. Thus, will give her her 1st dose here. She is certainly within the 48 hour window. She did not start feeling sick until yesterday, felt absolutely fine on Saturday. She is wondering about her sinus symptoms and her sore throat, reviewed with her that these are all commensurate with symptoms from influenza A. Vital Signs Vital signs: Initial Vital Signs Temperature 99.6 F 09/23/23 16:09 Temperature Source Temporal Artery Scan 09/23/23 16:09 Pulse Rate 89 09/23/23 16:09 Pulse Rhythm Regular 09/23/23 16:09 Respiratory Rate 22 09/23/23 16:09 Blood Pressure 155/75 H 09/23/23 16:09 Blood Pressure Mean 101 09/23/23 16:09 Blood Pressure Position Sitting 09/23/23 16:09 Pulse Oximetry 94 09/23/23 16:09 Oxygen Delivery Method Room Air 09/23/23 16:09 Vital Signs Temperature 99.6 F 09/23/23 16:09 Pulse Rate 89 09/23/23 16:09 Respiratory Rate 22 09/23/23 16:09 Blood Pressure 155/75 H 09/23/23 16:09 Pulse Oximetry 94 09/23/23 16:09 Oxygen Delivery Method Room Air 09/23/23 16:09 Temperature 99.6 F 09/23/23 16:09 Pulse Rate 84 09/23/23 18:01 Respiratory Rate 22 09/23/23 16:09 Blood Pressure 149/56 H 09/23/23 18:01 Pulse Oximetry 96 09/23/23 18:01 Oxygen Delivery Method Room Air 09/23/23 16:09 Medical Decision Making Lab Data Lab results reviewed: Yes I reviewed the patient's lab results Labs: Lab Results 09/23/23 09/23/23 Range/Units 16:45 17:09 WBC 4.43 L (4.50-11.00) K/uL RBC 3.96 L (4.00-5.20) m/uL Hgb 12.1 (12.0-16.0) gm/dL Hct 37.5 (33.0-51.0) % MCV 95 (80-100) fL MCH 31 (26-34) pg MCHC 32 (32-36) gm/dL RDW Coeff of Cesario 14.2 (11.5-15.5) % Plt Count 212 (140-440) K/uL Neut % (Auto) 70.7 (42.0-72.0) % Lymph % (Auto) 10.4 L (20-44) % [place] % (Auto) 17.8 H (0.0-11.0) % Eos % (Auto) 0.2 (0.0-7.0) % Baso % (Auto) 0.7 (0.0-3.0) % Neut # (Auto) 3.10 (1.7-7.0) K/uL Lymph # (Auto) 0.50 L (0.90-2.90) K/uL [place] # (Auto) 0.80 (0.00-0.90) K/UL Eos # (Auto) 0.00 (0.00-0.50) K/uL Baso # (Auto) 0.00 (0.00-0.30) K/uL Abs Immat Gran (auto) 0.00 (0.00-0.30) K/uL Imm/Tot Granulo (auto) 0.2 % Sodium 133 L (135-149) mmol/L Potassium 3.4 L (3.6-5.1) mmol/L Chloride 104 (96-114) mmol/L Carbon Dioxide 24 (20-32) mmol/L Anion Gap 5 L (7-15) mEq/L BUN 9 (7-30) mg/dL Creatinine 0.7 (0.5-1.5) mg/dL Estimated Creat Clear 36.63 Estimated GFR 86 ml/min Glucose 95 (60-115) mg/dL Calcium 8.7 (8.4-10.6) mg/dL C-Reactive Protein 1.8 H (0.5-1.0) mg/dL SARS-CoV-2 (PCR) Negative SARS-CoV-2 (Negative) Influenza Type A (PCR) POSITIVE PCR FLU A A (Negative) Influenza Type B (PCR) Negative PCR FLU B (Negative) RSV (PCR) Negative PCR RSV (Negative) Imaging Data Chest x-ray: Attestation: I have reviewed the pertinent imaging results. Radiologist's impression: Patient: AGUSTIN GONZALEZ Facility:?[facility] Patient ID:?[id number] Site Patient ID:?[id number]. Site :?[id number] Study:?XRay Chest PORTABLE-09/23/2023 5:00:00 PM Ordering Physician:Arely Lockhart Final Report: INDICATION: Cough and sinus pain COMPARISON: Chest CT 05/28/2022 TECHNIQUE: 1 view chest radiograph. FINDINGS: Lung volumes are good. Diffuse prominent interstitial markings. Bibasilar linear scarring or chronic atelectasis. No new discrete consolidation. No pulmonary edema. No pleural effusion. No pneumothorax. No pneumomediastinum. Normal cardiomediastinal silhouette. Bones: Normal for age. IMPRESSION: Increased interstitial markings throughout in a pattern most suggestive of a viral or atypical pneumonia. Dictated by Zeynep Patton MD @ 09/23/2023 5:58:46 PM (Electronic Signature) Critical Care Time Critical Care Time Critical Care Time: No Discharge Plan Discharge Clinical Impression: Influenza A Patient Disposition: Home, Self-Care Condition: Stable Instructions: Influenza (ED) Additional Instructions: 1st dose of Tamiflu was provided in the ER [facility], rest of the prescription sent to your pharmacy. The Tamiflu will help lessen the severity of symptoms and possibly the duration of illness. Need to quarantine per CDC and facility guidelines given you do have influenza, this is contagious. Recommend Tylenol per bottle directions for symptom control. If you are worsening, have concern for difficulty breathing or shortness of breath, other concerns develope with this illness, do recommend re-evaluation. Activity Level: Activity as Tolerated Prescriptions: New oseltamivir [Tamiflu] 30 mg capsule 30 mg PO BID 5 Days Qty: 9 0RF Rx Instructions: Needs next dose tomorrow morning, first dose given in ED 09/23 6pm No Action methadone 5 mg tablet 5 mg PO Q12H famotidine [Acid Controller] 20 mg tablet 20 mg PO DAILY epinephrine 0.3 mg/0.3 mL auto-injector 0.3 mg IM PRN lisinopril 20 mg tablet 20 mg PO DAILY sertraline 100 mg tablet 100 mg PO DAILY Patient Comments: TAKE 1 TABLET(100MG) BY MOUTH EVERY MORNING levothyroxine 88 mcg tablet 88 mcg PO DAILY Patient Comments: TAKE 1 TABLET BY MOUTH ONCE DAILY. lorazepam 0.5 mg tablet 0.5 mg PO Q6H PRN Patient Comments: TAKE ONE TABLET (O.5MG) BY MOUTH EVERY SIX HOURS IF NEEDED FOR ANXIETY polyethylene glycol 3350 [Gavilax] 17 gram/dose powder 17 g PO DAILY PRN Patient Comments: MIX 17 GMS OF POWDER IN LIQUID AND DRINK ONCE DAILY lenalidomide [Revlimid] 15 mg capsule 15 mg PO .COMPLEX Rx Instructions: 15 mg orally takes 21days, 7 days off; Take days of revlamid cycle. oxycodone 5 mg tablet 2.5 - 5 mg PO Q4H PRN Patient Comments: TAKE 0.5-1 TABLET (2.5-5 MG) BY MOUTH EVERY 4 HOURS IF NEEDED (PAIN). patient states not currently taking (nov 2022) dexamethasone 4 mg tablet 20 mg PO .weekly Qty: 20 2RF Rx Instructions: Take on day 1,8,15,22 of each cycle. Take in the morning with food. Follow Up/Referrals: Hugo Quezada MD [Primary Care Provider] - Stand Alone Forms: [facility] Info Instructions
--- NOTE | 2023-09-23 16:39 | CRLHL7_ITS ---
For Patients: As a result of the Century Cures Act, medical imaging exams and procedure reports are released immediately into your electronic medical record. You may view this report before your referring provider. If you have questions, please contact your health care provider. INDICATION: Cough and sinus pain COMPARISON: Chest CT 05/28/2022 TECHNIQUE: 1 view chest radiograph. FINDINGS: Lung volumes are good. Diffuse prominent interstitial markings. Bibasilar linear scarring or chronic atelectasis. No new discrete consolidation. No pulmonary edema. No pleural effusion. No pneumothorax. No pneumomediastinum. Normal cardiomediastinal silhouette. Bones: Normal for age. IMPRESSION: Increased interstitial markings throughout in a pattern most suggestive of a viral or atypical pneumonia. Dictated by Zeynep Patton MD @ 09/23/2023 5:58:46 PM (Electronically Signed)
[2023-09-23 17:15] LABS: Basophils Percent Auto 0.7 % (0.0-3.0); Eosinophils Percent Auto 0.2 % (0.0-7.0); Hematocrit 37.5 % (33.0-51.0); Hemoglobin* 12.1 gm/dL (12.0-16.0); Immature Granulocytes Pct Auto 0.2 %; Lymphocytes Percent Auto 10.4 % (20-44); Mean Corpuscular HGB Conc 32 gm/dL (32-36); Mean Corpuscular Hemoglobin 31 pg (26-34); Mean Corpuscular Volume 95 fL (80-100); Monocytes Percent Auto 17.8 % (0.0-11.0); Neutrophils Percent Auto 70.7 % (42.0-72.0); Platelet Count* 212 K/uL (140-440); RDW Coefficient of Variation % 14.2 % (11.5-15.5); Red Blood Count 3.96 m/uL (4.00-5.20); White Blood Count* 4.43 K/uL (4.50-11.00)
[2023-09-23 17:17] LABS: Slide Review Reflex No
[2023-09-23 17:29] LABS: Chloride* 104 mmol/L (96-114); Potassium* 3.4 mmol/L (3.6-5.1); Sodium* 133 mmol/L (135-149)
[2023-09-23 17:31] LABS: Creatinine* 0.7 mg/dL (0.5-1.5); Est. Creatinine Clearance* 36.63; Estimated Glomerular Filt Rate 86 ml/min
[2023-09-23 17:32] LABS: Anion Gap 5 mEq/L (7-15); Blood Urea Nitrogen* 9 mg/dL (7-30); Carbon Dioxide* 24 mmol/L (20-32); Glucose* 95 mg/dL (60-115)
[2023-09-23 17:33] LABS: Calcium* 8.7 mg/dL (8.4-10.6)
[2023-09-23 17:35] LABS: PCR FLU A POSITIVE PCR FLU A (Negative); PCR FLU B Negative PCR FLU B (Negative); PCR RSV Negative PCR RSV (Negative)
[2023-09-23 17:35] LABS: C Reactive Protein* 1.8 mg/dL (0.5-1.0)
[2023-09-23 17:40] LABS: SARS PCR* Negative SARS-CoV-2 (Negative)
[2023-09-23] MEDS: OSELTAMIVIR 30 MG CAPSULE PO (18:15)
== END 2023-09-23 18:28 | disposition home or self-care (01) ==
PROVIDERS: Emergency Provider Family Medicine; PCP Family Medicine
DX: J10.1 Influenza due to other identified influenza virus with other respiratory manifestations (principal)
CPT/HCPCS: 36415; 71045; 80048; 85025; 86140; 87631; 94761; 95992; 99284; A9270

== ENCOUNTER 2023-09-27 17:17 | Inpatient (IN) | payer MEDICARE, BC, SELFPAY ==
[2023-09-27] VITALS (11 sets, daily range): BP systolic 139–194; BP diastolic 72–82; PULSE 74–79; RESP 18–78; TEMP 36.7–36.8; O2SAT 90–97; BMI 21.7; BMI 19.7
--- NOTE | 2023-09-27 18:29 | ED.NURSE ---
patient placed in room and began having sob and congestion as if difficult to breath froggy sounding. pulse ox 86-88% on room air. placed on 3 liters via nc increased the pulse ox to 91% and Dr. Lugo in the room interviewing the patient.
--- NOTE | 2023-09-27 18:32 | CRLHL7_ITS ---
For Patients: As a result of the Cures Act, medical imaging exams and procedure reports are released immediately into your electronic medical record. You may view this report before your referring provider. If you have questions, please contact your health care provider. INDICATION: COUGH, SOB, INFLUENZA. TECHNIQUE: Chest 1 view. COMPARISON: None. FINDINGS: Cardiovascular and mediastinum: Cardiomediastinal silhouette is within normal limits. Lungs and pleural spaces: A perihilar and lower lobe interstitial opacities and linear opacities. No evidence of pleural effusion. No pneumothorax identified. Bones and soft tissues: Unremarkable. IMPRESSION: Diffuse interstitial opacities, can be seen in setting of viral illness, airways disease. Mild bibasilar atelectasis. Dictated by Niecy Jesus MD @ 09/27/2023 7:28:44 PM (Electronically Signed)
--- NOTE | 2023-09-27 18:37 | ED.GENADULT ---
HPI - General Adult General Chief complaint: Shortness of Breath/Dyspnea Stated complaint: Flu, shortness of breath Time Seen by Provider: 09/27/23 18:24 History of Present Illness HPI narrative: This 83-year-old female comes in with cough and shortness of breath. She was diagnosed with influenza 4 days ago but states that her breathing became significantly worse today. She arrives here with tachypnea and oximetry at 88% on room air. She does not report any fevers. She states that she has been taking Tamiflu as prescribed. Related Data Home Medications Medication Instructions Recorded Confirmed epinephrine 0.3 mg/0.3 mL 0.3 mg IM PRN 04/05/22 07/18/23 injection, auto-injector lenalidomide 15 mg capsule 15 mg PO .COMPLEX 04/05/22 07/18/23 (Revlimid) levothyroxine 88 mcg tablet 88 mcg PO DAILY 04/05/22 07/18/23 lisinopril 20 mg tablet 20 mg PO DAILY 04/05/22 07/18/23 lorazepam 0.5 mg tablet 0.5 mg PO Q6H PRN 04/05/22 07/18/23 polyethylene glycol 3350 17 17 g PO DAILY PRN 04/05/22 07/18/23 gram/dose oral powder (Gavilax) sertraline 100 mg tablet 100 mg PO DAILY 04/05/22 07/18/23 methadone 5 mg tablet 5 mg PO Q12H 08/03/22 07/18/23 famotidine 20 mg tablet (Acid 20 mg PO DAILY 08/20/22 07/18/23 Controller) oxycodone 5 mg tablet 2.5 - 5 mg PO Q4H PRN 11/26/22 07/18/23 Previous Rx's Medication Instructions Recorded dexamethasone 4 mg tablet 20 mg (5 x 4 mg) PO .weekly #20 08/27/23 tabs oseltamivir 30 mg capsule (Tamiflu) 30 mg PO BID 5 days #9 caps 09/23/23 Allergies Allergy/AdvReac Type Severity Reaction Status Date / Time peanut oil Allergy Severe Anaphylaxis Verified 07/18/23 09:22 tree nut Allergy Unknown Verified 07/18/23 09:22 nuts Allergy Severe Uncoded 04/05/22 17:27 BEES Allergy Mild Uncoded 04/05/22 17:27 HYMENOPTERA ALLERGENIC Allergy Unknown Uncoded 04/05/22 17:27 EXTRACT Review of Systems Status of ROS: Reports: 10 or more systems reviewed and unremarkable except as noted in History and below Narrative: In Constitutional: No fevers, no weight gain or loss. Eyes: No discharge. No vision changes. HENT: No congestion, no sore throat, no ear pain. Cardiovascular: No chest pain, no palpitations. Respiratory: Cough, shortness of breath. Gastrointestinal: No abdominal pain, no vomiting, no diarrhea. Genitourinary: No dysuria, no hematuria. Musculoskeletal: Normal range of motion. Skin: No rashes, no pruritis. Neurological: No dizziness, weakness, sensory change, speech change. Endo/Heme/Allergies: No bruising or bleeding. No polydipsia. Pysch: no suicidality, no anxiety, no insomnia. All other systems reviewed and are negative. [facility] Medical History Tachycardia (05/02/12) ?R00.0 - Tachycardia, unspecified (ICD-10) Muscle spasm ?M62.838 - Other muscle spasm (ICD-10) Grief ?F43.21 - Adjustment disorder with depressed mood (ICD-10) Compression fracture of body of thoracic vertebra ?S22.000A - Wedge compression fracture of unspecified thoracic vertebra, initial encounter for closed fracture (ICD-10) Back pain ?M54.9 - Dorsalgia, unspecified (ICD-10) Anxiety ?F41.9 - Anxiety disorder, unspecified (ICD-10) Social History Smoking Status: Former smoker Do you use any of these nicotine containing products: None How often do you have a drink containing alcohol: never How often do you have six or more drinks on one occasion: Never AUDIT-C Alcohol total score: 0 Non-prescribed substance use: denies use service: No Exam Narrative: Exam Narrative: Constitutional: Well-developed, well-nourished, no acute distress. HEENT: Normocephalic, atraumatic. Neck: Normal range of motion. Nontender. Supple. Heart: Regular. No murmurs. Normal rate. Intact distal pulses. Lungs: Bilateral rhonchi and wheezes. Decreased air movement. Use of accessory muscles for breathing. Abdomen: Normal bowel sounds. Nontender. No rebound tenderness. Genitalia: Deferred. Back: No midline tenderness. Normal range of motion. Extremities: Normal range of motion. No injury. Skin: Intact. No rash. Warm. No erythema or pallor. Neurologic: No altered sensation. No weakness. Alert and oriented. Psychiatric: No suicidality. No anxiety or depression. No insomnia. Nursing notes and vitals signs are reviewed. Const: Vital Signs, click to edit/add: Vital Signs - 24 hr 09/27/23 17:25 Temperature 98.2 F Pulse Rate [Right Radial] 78 Respiratory Rate 78 H Blood Pressure [Ri ght Upper Arm] 194/74 H Pulse Oximetry 90 Oxygen Delivery Me thod Room Air Course Vital Signs Vital signs: Initial Vital Signs Temperature 98.2 F 09/27/23 17:25 Temperature Source Temporal Artery Scan 09/27/23 17:25 Pulse Rate 78 09/27/23 17:25 Pulse Rhythm Regular 09/27/23 17:25 Pulse Strength 3+ Normal 09/27/23 17:25 Respiratory Rate 78 H 09/27/23 17:25 Blood Pressure 194/74 H 09/27/23 17:25 Blood Pressure Mean 114 H 09/27/23 17:25 Blood Pressure Position Supine 09/27/23 17:25 Pulse Oximetry 90 09/27/23 17:25 Oxygen Delivery Method Room Air 09/27/23 17:25 Vital Signs Temperature 98.2 F 09/27/23 17:25 Pulse Rate 78 09/27/23 17:25 Respiratory Rate 78 H 09/27/23 17:25 Blood Pressure 194/74 H 09/27/23 17:25 Pulse Oximetry 90 09/27/23 17:25 Oxygen Delivery Method Room Air 09/27/23 17:25 Temperature 98.2 F 09/27/23 17:25 Pulse Rate 78 09/27/23 17:25 Respiratory Rate 78 H 09/27/23 17:25 Blood Pressure 194/74 H 09/27/23 17:25 Pulse Oximetry 90 09/27/23 17:25 Oxygen Delivery Method Room Air 09/27/23 17:25 Medical Decision Making MDM Narrative Medical decision making narrative: This 83-year-old female comes in with hypoxia and tachypnea. She was diagnosed with influenza 4 days ago but got distinctly worse today. The patient was placed on oxygen soon after arrival and with 2.5 L by nasal cannula she improved to 97% and her tachypnea resolved. An IV was established and labs are acquired. Chest x-ray also was obtained. The patient did receive an IV dose of steroid and a DuoNeb was ordered. I did speak with the hospitalist environmental conservation professor, Dr. De Leon who agrees to her admission into the hospital. Discharge Plan Discharge Clinical Impression: Influenza A, Dyspnea Patient Disposition: Admitted As Observation Condition: Unchanged Prescriptions: No Action methadone 5 mg tablet 5 mg PO Q12H famotidine [Acid Controller] 20 mg tablet 20 mg PO DAILY epinephrine 0.3 mg/0.3 mL auto-injector 0.3 mg IM PRN lisinopril 20 mg tablet 20 mg PO DAILY sertraline 100 mg tablet 100 mg PO DAILY Patient Comments: TAKE 1 TABLET(100MG) BY MOUTH EVERY MORNING levothyroxine 88 mcg tablet 88 mcg PO DAILY Patient Comments: TAKE 1 TABLET BY MOUTH ONCE DAILY. lorazepam 0.5 mg tablet 0.5 mg PO Q6H PRN Patient Comments: TAKE ONE TABLET (O.5MG) BY MOUTH EVERY SIX HOURS IF NEEDED FOR ANXIETY polyethylene glycol 3350 [Gavilax] 17 gram/dose powder 17 g PO DAILY PRN Patient Comments: MIX 17 GMS OF POWDER IN LIQUID AND DRINK ONCE DAILY lenalidomide [Revlimid] 15 mg capsule 15 mg PO .COMPLEX Rx Instructions: 15 mg orally takes 21days, 7 days off; Take days of revlamid cycle. oxycodone 5 mg tablet 2.5 - 5 mg PO Q4H PRN Patient Comments: TAKE 0.5-1 TABLET (2.5-5 MG) BY MOUTH EVERY 4 HOURS IF NEEDED (PAIN). patient states not currently taking (nov 2022) oseltamivir [Tamiflu] 30 mg capsule 30 mg PO BID 5 Days Qty: 9 0RF Rx Instructions: Needs next dose tomorrow morning, first dose given in ED 09/23 6pm dexamethasone 4 mg tablet 20 mg PO .weekly Qty: 20 2RF Rx Instructions: Take on day 1,8,15,22 of each cycle. Take in the morning with food. Follow Up/Referrals: Hugo Quezada MD [Primary Care Provider] -
[2023-09-27] MEDS: IPRAT-ALBUT 0.5-2.5 MG/3 ML NEB 1 NEB IH (19:24)
[2023-09-27] MEDS: dexAMETHasone 4 MG/ML VIAL 10 MG IV (19:24)
[2023-09-27 19:28] LABS: Lab Add On Test New Spec Needed
[2023-09-27 19:34] LABS: Basophils Absolute Auto 0.02 K/uL (0.00-0.30); Basophils Percent Auto 0.4 % (0.0-3.0); Eosinophils Absolute Auto 0.01 K/uL (0.00-0.50); Eosinophils Percent Auto 0.2 % (0.0-7.0); Hematocrit 38.3 % (33.0-51.0); Hemoglobin* 12.1 gm/dL (12.0-16.0); Immature Granulocytes Abs Auto 0.01 K/uL (0.00-0.30); Immature Granulocytes Pct Auto 0.2 %; Lymphocytes Percent Auto 24.3 % (20-44); Mean Corpuscular HGB Conc 32 gm/dL (32-36); Mean Corpuscular Hemoglobin 30 pg (26-34); Mean Corpuscular Volume 95 fL (80-100); Monocytes Percent Auto 26.1 % (0.0-11.0); Neutrophils Percent Auto 48.8 % (42.0-72.0); Platelet Count* 249 K/uL (140-440); RDW Coefficient of Variation % 13.7 % (11.5-15.5); Red Blood Count 4.04 m/uL (4.00-5.20); White Blood Count* 4.52 K/uL (4.50-11.00)
[2023-09-27 19:42] LABS: Slide Review Reflex Yes
[2023-09-27 19:48] LABS: Chloride* 105 mmol/L (96-114); Potassium* 3.5 mmol/L (3.6-5.1); Sodium* 139 mmol/L (135-149)
[2023-09-27 19:51] LABS: Anion Gap 8 mEq/L (7-15); Blood Urea Nitrogen* 9 mg/dL (7-30); Carbon Dioxide* 26 mmol/L (20-32); Creatinine* 0.6 mg/dL (0.5-1.5); Est. Creatinine Clearance* 30.62; Estimated Glomerular Filt Rate 89 ml/min
[2023-09-27 19:52] LABS: Calcium* 8.5 mg/dL (8.4-10.6); Glucose* 94 mg/dL (60-115)
[2023-09-27 20:04] LABS: NT Pro B Type NatriureticPept* < 20 pg/mL
[2023-09-27 20:09] LABS: Procalcitonin* 0.05 ng/mL (<0.50)
[2023-09-27 20:10] LABS: PCR FLU A POSITIVE PCR FLU A (Negative); PCR FLU B Negative PCR FLU B (Negative); PCR RSV Negative PCR RSV (Negative)
[2023-09-27 20:12] LABS: SARS PCR* Negative SARS-CoV-2 (Negative)
[2023-09-27 20:41] LABS: Slide Review Acceptable Review (Acceptable)
--- NOTE | 2023-09-27 20:42 | PC.NURSE ---
2019 Pt brought to med surg on [facility] on tele box with multiple belongings including walker and c3ll phone. Pt waw tx on 2L NC O2. Noted to be tachypneic and audible rhasby breathing. Able to talk in full sentences. Stood for weight but very dyspnea. All cares explained.
--- NOTE | 2023-09-27 21:25 | PM.IMHP1 ---
Hospitalist- H&P: HPI History of Present Illness Date Seen: 09/27/23 Chief complaint: Flu, shortness of breath Narrative: Nehemiah Pineda is a 83 year old female with multiple myeloma recently diagnosed with influenza and admitted for worsening dyspnea, hypoxia. Patient 1st became ill about 6 days ago with cough and cold symptoms. Four days ago she was seen in our emergency department where she was diagnosed with influenza a and started on Tamiflu. Over last couple days she feels like her breathing is a little worse. She has continued to have a prominent cough. A nurse identified that she was hypoxic today as well as appearing short of breath and referred her to the emergency department. She has no previous history of hypoxia, chronic heart or lung disease. She does not smoke. She reports that she has been able to eat. No vomiting. No chest pain. She is not aware of a fever. Since coming to the emergency department and receiving oxygen she reports her breathing is much better. Review of Systems Narrative: Patient reports she has been doing well other than as noted above. Her multiple myeloma is been managed with dexamethasone and Revlimid. [facility] Medical History (Updated 09/27/23 @ 21:38 by Maximino De Leon MD) Tachycardia (05/02/12) ?R00.0 - Tachycardia, unspecified (ICD-10) Muscle spasm ?M62.838 - Other muscle spasm (ICD-10) Grief ?F43.21 - Adjustment disorder with depressed mood (ICD-10) Compression fracture of body of thoracic vertebra ?S22.000A - Wedge compression fracture of unspecified thoracic vertebra, initial encounter for closed fracture (ICD-10) Back pain ?M54.9 - Dorsalgia, unspecified (ICD-10) Anxiety ?F41.9 - Anxiety disorder, unspecified (ICD-10) Family History (Updated 09/27/23 @ 21:30 by Maximino De Leon MD) Mother Cervical cancer Social History (Updated 09/27/23 @ 21:31 by Maximino De Leon MD) Narrative: She lives at [facility] where other residents of had influenza. She is . Her son is healthcare power of deputy county attorney. Code status is DNR DNI. She does not smoke. She rarely drinks alcohol. What is your current living situation?: I presently have a place to live Problems where you live: no known problems Problems where you live details: NA In the past 12 months, utilities in danger of being shut off: no In past 12 months, lack of transportation kept you from medical appts, meetings, work, or getting things needed for daily living: no In the past 12 mos, have been you worried that your food would run out before you had money to buy more?: never true In the past 12 mos, the food you bought just didn't last and you didn't have money to buy more?: never true Highest level of school completed/degree received: Master's degree Smoking Status: Former smoker Do you use any of these nicotine containing products: None How often do you have a drink containing alcohol: never How often do you have six or more drinks on one occasion: Never AUDIT-C Alcohol total score: 0 Non-prescribed substance use: denies use Caffeine: No How often does anyone, including family, friends and others, physically hurt you: never How often does anyone, including family, friends and others, insult or talk down to you: never How often does anyone, including family, friends and others, threaten you with harm: never How often does anyone, including family, friends and others, scream or curse at you: never service: No Meds Home Medications and Allergies Home Medications Medication Instructions Recorded Confirmed Type epinephrine 0.3 mg/0.3 mL 0.3 mg IM PRN 04/05/22 07/18/23 History injection, auto-injector lenalidomide 15 mg capsule 15 mg PO .COMPLEX 04/05/22 07/18/23 History (Revlimid) levothyroxine 88 mcg tablet 88 mcg PO DAILY 04/05/22 07/18/23 History lisinopril 20 mg tablet 20 mg PO DAILY 04/05/22 07/18/23 History lorazepam 0.5 mg tablet 0.5 mg PO Q6H PRN 04/05/22 07/18/23 History polyethylene glycol 3350 17 17 g PO DAILY PRN 04/05/22 07/18/23 History gram/dose oral powder (Gavilax) sertraline 100 mg tablet 100 mg PO DAILY 04/05/22 07/18/23 History methadone 5 mg tablet 5 mg PO Q12H 08/03/22 07/18/23 History famotidine 20 mg tablet (Acid 20 mg PO DAILY 08/20/22 07/18/23 History Controller) oxycodone 5 mg tablet 2.5 - 5 mg PO Q4H PRN 11/26/22 07/18/23 History Allergies Allergy/AdvReac Type Severity Reaction Status Date / Time peanut oil Allergy Severe Anaphylaxis Verified 07/18/23 09:22 tree nut Allergy Unknown Verified 07/18/23 09:22 nuts Allergy Severe Uncoded 04/05/22 17:27 BEES Allergy Mild Uncoded 04/05/22 17:27 HYMENOPTERA ALLERGENIC Allergy Unknown Uncoded 04/05/22 17:27 EXTRACT Exam Narrative: Exam Narrative: She is alert and appears in no distress while breathing oxygen via nasal cannula. She gives her own history. Eyes are normal. Oropharynx normal. Neck is supple without mass or adenopathy. No stridor. Respirations with SP expiratory crackles heard relatively diffusely, more prominent in the lung bases than upper lung garcia. Somewhat prolonged expiratory phase. Cardiovascular: S1, S2, regular rate and rhythm. No murmur gallop or rub. Abdomen: Bowel sounds active. Abdomen is soft without tenderness or mass. Extremities without edema. Intact peripheral pulses. She moves all 4 extremities Const: Vital Signs, click to edit/add: Vital Signs - 24 hr 09/27/23 17:25 09/27/23 18:33 09/27/23 19:41 Temperature 98.2 F 98.2 F Pulse Rate [Left R adial] Pulse Rate [Right Radial] 78 79 Respiratory Rate 78 H 18 Blood Pressure [Ri ght Arm] Blood Pressure [Ri ght Upper Arm] 194/74 H 139/79 Pulse Oximetry 90 95 97 Oxygen Delivery Me thod Room Air Nasal Cannula Nasal Cannula Oxygen Flow Rate 2 2 09/27/23 20:50 09/27/23 20:51 09/27/23 20:52 Temperature 98.1 F 98.1 F Pulse Rate [Left R adial] 74 74 Pulse Rate [Right Radial] Respiratory Rate 24 24 Blood Pressure [Ri ght Arm] 155/72 H 155/72 H Blood Pressure [Ri ght Upper Arm] Pulse Oximetry 97 97 97 Oxygen Delivery Me thod Nasal Cannula Nasal Cannula Oxygen Flow Rate 2 2 Documenting provider has reviewed patient's vital signs: yes Hospitalist - H&P: Result Labs Labs: Short CBC 09/27/23 Range/Units 19:28 WBC 4.52 (4.50-11.00) K/uL Hgb 12.1 (12.0-16.0) gm/dL Hct 38.3 (33.0-51.0) % Plt Count 249 (140-440) K/uL [facility] 09/27/23 19:28 Sodium 139 Potassium 3.5 L Chloride 105 Carbon Dioxide 26 BUN 9 Creatinine 0.6 Glucose 94 Calcium 8.5 Assessment and Plan Assessment and plan (1) Hypoxic respiratory failure: Problem comment: Due to influenza a pneumonia Status: Acute (2) Influenza A: Status: Acute (3) Multiple myeloma not having achieved remission: Problem comment: IgG [place], risk difficult to assess (gain of 1q is classified as a high risk cytogenetic category however a trisomy of 1 or more odd numbered chromosomes may ameliorate this risk (mSMART 3.0). Temporarily hold treatment with Revlimid and dexamethasone Status: Acute (4) Back pain: Problem comment: Continue methadone Status: Acute Plan 83-year-old female with influenza a and hypoxic respiratory failure with clinical and radiographic viral pneumonia. Continue Tamiflu. Monitor for complications of bacterial pneumonia. Continue oxygen supplementation. Total time spent today is 65 minutes, 40 minutes in coordination of care and discussing with patient and son ongoing evaluation management of influenza a pneumonia
[2023-09-27] MEDS: ENOXAPARIN 30 MG/0.3ML INJ SUBCUT (21:57)
[2023-09-27] MEDS: METHADONE 5 MG TABLET 2.5 MG PO (21:58)
[2023-09-27] MEDS: OSELTAMIVIR 30 MG CAPSULE PO (21:58)
[2023-09-27] MEDS: LORazepam 0.5 MG TABLET PO (21:59)
[2023-09-27] MEDS: SODIUM CHLORIDE 0.9 % (FLUSH) 10 ML SYRINGE 5 ML IVF (22:30)
--- NOTE | 2023-09-28 00:12 | PC.NURSE ---
RN requested Duo Neb to alleviate Pt respirations. declined Neb
[2023-09-28 02:55] VITALS: BP 175/95; PULSE 79; RESP 24; TEMP 36.3; O2SAT 96
--- NOTE | 2023-09-28 04:48 | PC.NURSE ---
Pt came to floor @ 1999. LS very ronchi and wheezing. Pt up SBA. O2 mid 90s on 2L NC. Afebrile. SOB with exertion.
[2023-09-28] MEDS: LEVOTHYROXINE 88 MCG TABLET PO (06:30)
[2023-09-28 07:00] VITALS: BP 185/95; PULSE 70; RESP 22; TEMP 36.9; O2SAT 95; O2SAT 96
[2023-09-28 07:56] LABS: HCO3 VBG 28 mmol/L (21-28); PCO2 VBG 48 mmHG (40-50); PO2 VBG 72.6 mmHG (25-47)
[2023-09-28] MEDS: SERTRALINE 100 MG TABLET PO (09:20)
[2023-09-28] MEDS: OSELTAMIVIR 30 MG CAPSULE PO ×2 (09:20→20:18)
[2023-09-28] MEDS: lisinopriL 20 MG TABLET PO (09:20)
[2023-09-28] MEDS: SODIUM CHLORIDE 0.9 % (FLUSH) 10 ML SYRINGE 5 ML IVF ×2 (09:21→20:19)
[2023-09-28] MEDS: METHADONE 5 MG TABLET 2.5 MG PO ×2 (10:20→20:18)
[2023-09-28 11:00] VITALS: BP 140/77; PULSE 80; RESP 22; TEMP 36.8; O2SAT 93
[2023-09-28 12:00] VITALS: RESP 22; O2SAT 92
--- NOTE | 2023-09-28 13:30 | RESP.RT ---
Patient has coarse, congested, BBS, bases slightly diminished over other garcia. PEP with Aerobika, Instruction, patient return very good exhalation creating coarse, congested, bubbling exhalation sounds producing productive cough with moderate amount secretions at times. Has good chest shake with exhalation, had patient feel chest shake help understand use of Aerobika. Patient understands and verbally states same. Patient also states it's easier to cough up secretions with Aerobika.
[2023-09-28 15:00] VITALS: BP 158/84; PULSE 73; RESP 20; TEMP 36.8; O2SAT 92
--- NOTE | 2023-09-28 15:44 | P.IMPN_ITS ---
Progress Note: A&P Assessment and plan (1) Hypoxic respiratory failure: Problem details: Due to influenza a pneumonia. Clinically appears improved today Status: Acute (2) Influenza A: Problem details: One more day of Tamiflu Status: Acute (3) Multiple myeloma not having achieved remission: Problem details: IgG [place], risk difficult to assess (gain of 1q is classified as a high risk cytogenetic category however a trisomy of 1 or more odd numbered chromosomes may ameliorate this risk (mSMART 3.0). Temporarily hold treatment with Revlimid and dexamethasone Status: Acute Plan Continue in-hospital with ongoing oxygen need. Possible discharge to home in 1- 2 days if able to wean off of oxygen and clinically improving. Total time spent today is 35 minutes, 20 minutes in coordination of care discussing with patient other providers management of influenza and respiratory failure Subjective Date Seen: 09/28/23 Interval history: 83-year-old female with multiple myeloma admitted to the hospital with influenza pneumonia with progressive dyspnea and hypoxia. Patient became ill approximately September 21 with cough and cold symptoms. She has had progressive symptoms of illness and came to the emergency room with worsening cough, dyspnea and hypoxia. She was treated as an outpatient with Tamiflu. Chest x-ray shows viral pneumonia pattern. Overnight she reports feeling better. Her cough is productive of a yellowish sputum. She feels like the noise in her chest with breathing and coughing is improving. She finds the flutter valve to be helpful. She is not sure that she is benefiting from and nebulizer treatments. She has not had any fever. Her appetite is good. She is taking Tamiflu She still requiring about 1 L of oxygen to maintain her O2 sats at 90% Exam Narrative: Exam Narrative: She is alert and appears in no distress breathing with supplemental oxygen. Respirations with still relatively diffuse crackles particularly prominent expiratory crackles and more prominent at the lung bases. Wheezing is a little better today and is coarse wheezing. No consolidation. Cardiovascular: S1, S2, regular rate and rhythm. Abdomen is soft without tenderness or mass extremities without edema Const: Vital Signs, click to edit/add: Vital Signs - 24 hr 09/27/23 17:25 09/27/23 18:33 09/27/23 19:41 Temperature 98.2 F 98.2 F Pulse Rate Pulse Rate [Left R adial] Pulse Rate [Right Radial] 78 79 Respiratory Rate 78 H 18 Blood Pressure [Ri ght Arm] Blood Pressure [Ri ght Upper Arm] 194/74 H 139/79 Pulse Oximetry 90 95 97 Oxygen Delivery Me thod Room Air Nasal Cannula Nasal Cannula Oxygen Flow Rate 2 2 09/27/23 20:50 09/27/23 20:51 09/27/23 20:52 Temperature 98.1 F 98.1 F Pulse Rate Pulse Rate [Left R adial] 74 74 Pulse Rate [Right Radial] Respiratory Rate 24 24 Blood Pressure [Ri ght Arm] 155/72 H 155/72 H Blood Pressure [Ri ght Upper Arm] Pulse Oximetry 97 97 97 Oxygen Delivery Me thod Nasal Cannula Nasal Cannula Oxygen Flow Rate 2 2 09/27/23 21:29 09/27/23 21:35 09/27/23 22:24 Temperature 98.1 F Pulse Rate 76 Pulse Rate [Left R adial] 74 Pulse Rate [Right Radial] Respiratory Rate 24 24 Blood Pressure [Ri ght Arm] 147/82 H Blood Pressure [Ri ght Upper Arm] Pulse Oximetry 97 95 Oxygen Delivery Me thod Nasal Cannula Nasal Cannula Oxygen Flow Rate 2 2 09/27/23 22:26 09/27/23 22:27 09/28/23 02:55 Temperature 97.4 F L Pulse Rate Pulse Rate [Left R adial] 74 79 Pulse Rate [Right Radial] Respiratory Rate 24 24 24 Blood Pressure [Ri ght Arm] 175/95 H Blood Pressure [Ri ght Upper Arm] Pulse Oximetry 95 96 Oxygen Delivery Me thod Nasal Cannula Nasal Cannula Oxygen Flow Rate 2 2 09/28/23 07:00 09/28/23 07:00 09/28/23 07:00 Temperature 98.4 F Pulse Rate Pulse Rate [Left R adial] 70 70 Pulse Rate [Right Radial] Respiratory Rate 22 22 Blood Pressure [Ri ght Arm] 185/95 H Blood Pressure [Ri ght Upper Arm] Pulse Oximetry 95 96 Oxygen Delivery Me thod Nasal Cannula Nasal Cannula Oxygen Flow Rate 2 2 09/28/23 11:00 09/28/23 12:00 09/28/23 15:00 Temperature 98.3 F Pulse Rate Pulse Rate [Left R adial] 80 Pulse Rate [Right Radial] Respiratory Rate 22 22 Blood Pressure [Ri ght Arm] 140/77 H Blood Pressure [Ri ght Upper Arm] Pulse Oximetry 93 92 92 Oxygen Delivery Me thod Nasal Cannula Nasal Cannula Nasal Cannula Oxygen Flow Rate 1 0.5 0.5 09/28/23 15:00 09/28/23 15:00 Temperature 98.3 F Pulse Rate Pulse Rate [Left R adial] 73 73 Pulse Rate [Right Radial] Respiratory Rate 20 20 Blood Pressure [Ri ght Arm] 158/84 H Blood Pressure [Ri ght Upper Arm] Pulse Oximetry 92 Oxygen Delivery Me thod Nasal Cannula Oxygen Flow Rate 0.5 Documenting provider has reviewed patient's vital signs: yes Labs Labs: Laboratory Results - last 24 hr 09/27/23 09/27/23 09/27/23 19:15 19:20 19:28 WBC 4.52 RBC 4.04 Hgb 12.1 Hct 38.3 MCV 95 MCH 30 MCHC 32 RDW Coeff of Cesario 13.7 Plt Count 249 Neut % (Auto) 48.8 Lymph % (Auto) 24.3 [place] % (Auto) 26.1 H Eos % (Auto) 0.2 Baso % (Auto) 0.4 Neut # (Auto) 2.20 Lymph # (Auto) 1.10 [place] # (Auto) 1.20 H Eos # (Auto) 0.01 Baso # (Auto) 0.02 Abs Immat Gran (auto) 0.01 Imm/Tot Granulo (auto) 0.2 Diff Slide Review Acceptable Review D-Dimer Quant (PE/DVT) 0.30 VBG pH VBG pCO2 VBG pO2 VBG HCO3 Sodium 139 Potassium 3.5 L Chloride 105 Carbon Dioxide 26 Anion Gap 8 BUN 9 Creatinine 0.6 Estimated Creat Clear 30.62 Estimated GFR 89 Glucose 94 Calcium 8.5 NT-Pro-B Natriuret Pep < 20 Procalcitonin 0.05 SARS-CoV-2 (PCR) Negative SARS-CoV-2 Influenza Type A (PCR) POSITIVE PCR FLU A A Influenza Type B (PCR) Negative PCR FLU B RSV (PCR) Negative PCR RSV Lab Acknowledgement New Spec Needed 09/28/23 07:53 WBC RBC Hgb Hct MCV MCH MCHC RDW Coeff of Cesario Plt Count Neut % (Auto) Lymph % (Auto) [place] % (Auto) Eos % (Auto) Baso % (Auto) Neut # (Auto) Lymph # (Auto) [place] # (Auto) Eos # (Auto) Baso # (Auto) Abs Immat Gran (auto) Imm/Tot Granulo (auto) Diff Slide Review D-Dimer Quant (PE/DVT) VBG pH 7.380 VBG pCO2 48 VBG pO2 72.6 H VBG HCO3 28 Sodium Potassium Chloride Carbon Dioxide Anion Gap BUN Creatinine Estimated Creat Clear Estimated GFR Glucose Calcium NT-Pro-B Natriuret Pep Procalcitonin SARS-CoV-2 (PCR) Influenza Type A (PCR) Influenza Type B (PCR) RSV (PCR) Lab Acknowledgement
[2023-09-28] MEDS: IPRAT-ALBUT 0.5-2.5 MG/3 ML NEB 1 NEB IH (16:55)
[2023-09-28 19:09] VITALS: BP 169/97; PULSE 76; RESP 22; TEMP 36.9; O2SAT 95
--- NOTE | 2023-09-28 19:23 | PC.NURSE ---
End of Shift: Patient pleasant and cooperative. Afebrile. Denies pain. Able to wean O2 down to 0.5L via NC. Sats decrease to low to mid 80s on room air. Up to bathroom and chair with SBA. Tolerating regular diet with no nausea.
[2023-09-28] MEDS: ENOXAPARIN 30 MG/0.3ML INJ SUBCUT (20:19)
[2023-09-29] VITALS (8 sets, daily range): BP systolic 146–195; BP diastolic 78–101; PULSE 62–96; RESP 16–26; TEMP 36.1–37; O2SAT 9–99
[2023-09-29] MEDS: LEVOTHYROXINE 88 MCG TABLET PO (06:36)
--- NOTE | 2023-09-29 06:41 | PC.NURSE ---
END OF SHIFT NOTE: PT PLEASANT AND COOPERATIVE. A&Ox3. DENIES CP AND N/V. PT IS SOB WITH ACTIVITY AND TALKING. AMBULATES WITH SBA AND WALKER. VSS ON 0.5L NC; AFEBRILE. LS WITH COARSE CRACKLES THROUGHOUT ANTERIOR AND POSTERIOR. PT DID NOT SLEEP MUCH OVERNIGHT. PT REPORTS BREATHING MUCH BETTER THIS MORNING CALL LIGHT WITHIN PT?S REACH.?
[2023-09-29] MEDS: OSELTAMIVIR 30 MG CAPSULE PO (09:15)
[2023-09-29] MEDS: lisinopriL 20 MG TABLET PO (09:16)
[2023-09-29] MEDS: SODIUM CHLORIDE 0.9 % (FLUSH) 10 ML SYRINGE 5 ML IVF ×2 (09:16→21:02)
[2023-09-29] MEDS: SERTRALINE 100 MG TABLET PO (09:16)
[2023-09-29] MEDS: METHADONE 5 MG TABLET 2.5 MG PO ×2 (10:01→21:01)
--- NOTE | 2023-09-29 10:55 | PM.IMPN1 ---
Progress Note: A&P Assessment and plan (1) Hypoxic respiratory failure: Problem details: Due to influenza a pneumonia. Clinically appears improved today Status: Acute (2) Influenza A: Problem details: Has finished a 5 day course of temp Status: Acute (3) Multiple myeloma not having achieved remission: Problem details: IgG [place], risk difficult to assess (gain of 1q is classified as a high risk cytogenetic category however a trisomy of 1 or more odd numbered chromosomes may ameliorate this risk (mSMART 3.0). Temporarily hold treatment with Revlimid and dexamethasone Status: Acute Plan Continue in-hospital pending resolution of respiratory distress and hypoxia. Continue to monitor for complications of influenza pneumonia. Time Spent With Patient Total time spent: Total time spent today is 35 minutes, 20 minutes in coordination of care discussing with patient and other providers ongoing Subjective Date Seen: 09/29/23 Interval history: 83-year-old female with multiple myeloma admitted to the hospital with influenza pneumonia with progressive dyspnea and hypoxia. Patient became ill approximately September 21 with cough and cold symptoms. She has had progressive symptoms of illness and came to the emergency room with worsening cough, dyspnea and hypoxia. She was treated as an outpatient with Tamiflu. Chest x-ray shows viral pneumonia pattern. Overnight she reports continuing to improve. Her cough is better. She feels like the noise in her chest with breathing and coughing is improving. She finds the flutter valve to be helpful. She is not sure that she is benefiting from and nebulizer treatments. She has not had any fever. Her appetite is fair. She is taking Tamiflu She still requiring about 1 L of oxygen to maintain her O2 sats at 90% Exam Narrative: Exam Narrative: She is alert and appears in no distress. She appears comfortable breathing with 1 L of oxygen per nasal cannula. Respirations with improved air exchange, decreased crackles and decreased wheezing. Cardiovascular: S1, S2, regular rate and rhythm. Abdomen is soft without tenderness or mass. Const: Vital Signs, click to edit/add: Vital Signs - 24 hr 09/28/23 11:00 09/28/23 12:00 09/28/23 15:00 Temperature 98.3 F Pulse Rate [Left R adial] 80 Respiratory Rate 22 22 Blood Pressure [Ri ght Arm] 140/77 H Pulse Oximetry 93 92 92 Oxygen Delivery Me thod Nasal Cannula Nasal Cannula Nasal Cannula Oxygen Flow Rate 1 0.5 0.5 09/28/23 15:00 09/28/23 15:00 09/28/23 19:09 Temperature 98.3 F 98.4 F Pulse Rate [Left R adial] 73 73 76 Respiratory Rate 20 20 22 Blood Pressure [Ri ght Arm] 158/84 H 169/97 H Pulse Oximetry 92 95 Oxygen Delivery Me thod Nasal Cannula Nasal Cannula Oxygen Flow Rate 0.5 0.5 09/29/23 00:25 09/29/23 00:25 09/29/23 00:25 Temperature 97.8 F Pulse Rate [Left R adial] 62 62 Respiratory Rate 18 22 18 Blood Pressure [Ri ght Arm] 166/81 H Pulse Oximetry 9 L 93 Oxygen Delivery Me thod Nasal Cannula Nasal Cannula Oxygen Flow Rate 0.5 0.5 09/29/23 02:40 Temperature Pulse Rate [Left R adial] 68 Respiratory Rate 16 Blood Pressure [Ri ght Arm] 180/94 H Pulse Oximetry 93 Oxygen Delivery Me thod Nasal Cannula Oxygen Flow Rate 0.5 Documenting provider has reviewed patient's vital signs: yes
--- NOTE | 2023-09-29 13:10 | PC.NURSE ---
alert and oriented. ls cr. gabe bases. clear colored productive cough . increase sob with activity. able to go from bed to bathroom to chair with extention tubing. steady when up with walker. vs wnl except sats drop with activity but she rebounds well. sats on RA at rest 88-94. with activity 86. enc her to use 1L nc with extention tubing when up/activity. son Dante called. good po intake. did wash up herself in the bathroom. denies pain. using IS and flutter.
[2023-09-29] MEDS: ENOXAPARIN 30 MG/0.3ML INJ SUBCUT (21:01)
--- NOTE | 2023-09-29 23:00 | PC.NURSE ---
End of shift report [id number]: Patient alert and oriented x 4. Denies any pain. Patient currently on 1L oxygen, denies dyspnea with rest but having dyspnea with exertion. Continues to have productive cough, clear sputum. Independent with ambulation in room
[2023-09-30] VITALS (8 sets, daily range): BP systolic 130–193; BP diastolic 67–119; PULSE 71–97; RESP 20–22; TEMP 36.5–37.1; O2SAT 89–95
[2023-09-30] MEDS: LEVOTHYROXINE 88 MCG TABLET PO (06:42)
[2023-09-30] MEDS: METHADONE 5 MG TABLET 2.5 MG PO ×2 (09:39→21:29)
[2023-09-30] MEDS: SODIUM CHLORIDE 0.9 % (FLUSH) 10 ML SYRINGE 5 ML IVF ×2 (09:40→21:29)
[2023-09-30] MEDS: lisinopriL 20 MG TABLET PO (09:40)
[2023-09-30] MEDS: SERTRALINE 100 MG TABLET PO (09:40)
--- NOTE | 2023-09-30 09:44 | RESP.RT ---
Oxygen weaned to 0.5 Lpm with SaO2 >90. Breathing regular/easy. Patient using Aerobika/IS with good effort, both promoting good, forceful, productive cough for creme colored secretions. Patient likes the Aerobika/IS and uses both continually during the day, this is shown in with improved cough effort/volume and secretion mobilization. Goal is to wean Oxygen.
--- NOTE | 2023-09-30 13:51 | PM.IMPN1 ---
Progress Note: A&P Assessment and plan (1) Hypoxic respiratory failure: Problem details: Due to influenza a pneumonia. Clinically appears improved today Status: Acute (2) Influenza A: Problem details: Has finished a 5 day course of Tamiflu Status: Acute (3) Multiple myeloma not having achieved remission: Problem details: IgG [place], risk difficult to assess (gain of 1q is classified as a high risk cytogenetic category however a trisomy of 1 or more odd numbered chromosomes may ameliorate this risk (mSMART 3.0). Temporarily hold treatment with Revlimid and dexamethasone Status: Acute Plan Patient continues to improve from her influenza pneumonia. Anticipate discharge possibly tomorrow if she is able to wean off of oxygen. Time Spent With Patient Total time spent: Total time spent today is 20 minutes, 15 minutes in coordination of care discussing with patient ongoing plan of care Subjective Date Seen: 09/30/23 Interval history: 83-year-old female with multiple myeloma admitted to the hospital with influenza pneumonia with progressive dyspnea and hypoxia. Patient became ill approximately September 21 with cough and cold symptoms. She has had progressive symptoms of illness and came to the emergency room with worsening cough, dyspnea and hypoxia. She was treated as an outpatient with Tamiflu. Chest x-ray shows viral pneumonia pattern. Overnight again she reports continuing to improve. Her cough is better. She feels like the noise in her chest with breathing and coughing is improving. She finds the flutter valve to be helpful. She is not sure that she is benefiting from and nebulizer treatments. She has not had any fever. Her appetite is fair. She is taking Tamiflu She still requiring about 0.5 L of oxygen to maintain her O2 sats at 90% Exam Narrative: Exam Narrative: She is alert and appears in no distress. Breathing is unlabored. Respirations notable for marked increase in air exchange and improvement in wheezing and rhonchi. Cardiovascular: S1, S2, regular rate and rhythm. Abdomen is soft there is no tenderness no mass. Extremities without edema. Const: Vital Signs, click to edit/add: Vital Signs - 24 hr 09/29/23 15:00 09/29/23 15:00 09/29/23 15:00 Temperature 98.6 F Pulse Rate [Left R adial] 77 77 Respiratory Rate 22 22 22 Blood Pressure [Ri ght Arm] 195/101 H Pulse Oximetry 99 99 Oxygen Delivery Me thod Room Air Room Air Oxygen Flow Rate 1 1 09/29/23 19:00 09/29/23 23:20 09/29/23 23:20 Temperature 98.6 F Pulse Rate [Left R adial] 75 76 Respiratory Rate 26 H 22 22 Blood Pressure [Ri ght Arm] 193/97 H Pulse Oximetry 97 96 Oxygen Delivery Me thod Room Air Room Air Oxygen Flow Rate 1 09/29/23 23:20 09/30/23 06:05 09/30/23 07:45 Temperature 98.2 F Pulse Rate [Left R adial] 76 71 Respiratory Rate 22 22 20 Blood Pressure [Ri ght Arm] 156/92 H Pulse Oximetry 96 95 Oxygen Delivery Me thod Room Air Nasal Cannula Oxygen Flow Rate 1 0.5 09/30/23 07:45 09/30/23 07:45 09/30/23 09:40 Temperature 98.4 F Pulse Rate [Left R adial] 79 Respiratory Rate 20 20 20 Blood Pressure [Ri ght Arm] 146/93 H Pulse Oximetry 92 92 92 Oxygen Delivery Me thod Nasal Cannula Nasal Cannula Nasal Cannula Oxygen Flow Rate 0.5 0.5 0.5 09/30/23 11:25 Temperature 98.5 F Pulse Rate [Left R adial] 91 Respiratory Rate 20 Blood Pressure [Ri ght Arm] 142/99 H Pulse Oximetry 91 Oxygen Delivery Me thod Room Air Oxygen Flow Rate Documenting provider has reviewed patient's vital signs: yes
--- NOTE | 2023-09-30 14:47 | PC.NURSE ---
Pt denies pain. 0.5L O2 down to room air to maintain sats above 88% per Lazarus RT. Up in room independently with home 4-wheel walker. IS and Aerobika use independently with great consisitency. Appetite is increasing per pt.
[2023-09-30] MEDS: LORazepam 0.5 MG TABLET PO (17:23)
[2023-09-30] MEDS: ENOXAPARIN 30 MG/0.3ML INJ SUBCUT (21:29)
--- NOTE | 2023-09-30 22:36 | PC.NURSE ---
Pt alert and oriented x3. Afebrile. Pt had two high blood pressure readings around 1530, pt denied SOB, headache and chest pain. Pt reported feeling anxious about blood pressure readings and stated I don't like when the blood pressures are taken so frequently, I get anxious. I just don't want anything else to go wrong and it feels like something will go wrong if you keep checking. RN gave verbal education on things that can affect blood pressure to make the readings high, benefits of checking blood pressures and the common treatments for high blood pressure. 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 RN gave verbal education on influenza and pneumonia and discussed pt's progression from admission. Dr. Petersen updated, no new orders given. PRN lorazepam given per pt request. Pt blood pressures came back down around 1700 and pt reported feeling less anxious, and feeling better than yesterday. Pt's son requested update, RN asked pt if it was ok to update him, pt responded yes, that's fine. RN called son to give update, son didn't answer, gave update via voicemail and told him to call if he had any questions.
[2023-10-01 03:00] VITALS: BP 196/95; PULSE 76; RESP 20; TEMP 36.6; O2SAT 90
[2023-10-01] MEDS: LEVOTHYROXINE 88 MCG TABLET PO (06:27)
[2023-10-01 06:28] LABS: Basophils Absolute Auto 0.05 K/uL (0.00-0.30); Basophils Percent Auto 1.1 % (0.0-3.0); Eosinophils Absolute Auto 0.04 K/uL (0.00-0.50); Eosinophils Percent Auto 0.8 % (0.0-7.0); Hematocrit 38.9 % (33.0-51.0); Hemoglobin* 12.2 gm/dL (12.0-16.0); Immature Granulocytes Abs Auto 0.02 K/uL (0.00-0.30); Immature Granulocytes Pct Auto 0.4 %; Lymphocytes Absolute Auto 1.11 K/uL (0.90-2.90); Lymphocytes Percent Auto 23.5 % (20-44); Mean Corpuscular HGB Conc 31 gm/dL (32-36); Mean Corpuscular Hemoglobin 30 pg (26-34); Mean Corpuscular Volume 95 fL (80-100); Monocytes Percent Auto 16.9 % (0.0-11.0); Neutrophils Absolute Auto 2.71 K/uL (1.7-7.0); Neutrophils Percent Auto 57.3 % (42.0-72.0); Platelet Count* 329 K/uL (140-440); RDW Coefficient of Variation % 13.6 % (11.5-15.5); Red Blood Count 4.08 m/uL (4.00-5.20); White Blood Count* 4.73 K/uL (4.50-11.00)
[2023-10-01 06:43] LABS: Slide Review Reflex No
[2023-10-01 06:44] LABS: Chloride* 104 mmol/L (96-114); Potassium* 3.4 mmol/L (3.6-5.1); Sodium* 140 mmol/L (135-149)
[2023-10-01 06:47] LABS: Anion Gap 4 mEq/L (7-15); Blood Urea Nitrogen* 17 mg/dL (7-30); Carbon Dioxide* 32 mmol/L (20-32); Creatinine* 0.7 mg/dL (0.5-1.5); Est. Creatinine Clearance* 33.94; Estimated Glomerular Filt Rate 86 ml/min; Glucose* 93 mg/dL (60-115)
[2023-10-01 06:48] LABS: Calcium* 8.7 mg/dL (8.4-10.6)
--- NOTE | 2023-10-01 06:57 | PC.NURSE ---
Shift note: Pt is afebrile, frequent cough, O2 sats 87-90% on room air throughout the night. Pt is independent in the room, BPs remain the same
[2023-10-01 07:00] VITALS: BP 190/92; PULSE 71; RESP 16; TEMP 36.6; O2SAT 93
[2023-10-01 07:59] LABS: Magnesium* 2.1 mg/dL (1.5-2.6)
[2023-10-01] MEDS: POTASSIUM CHLORIDE 10 MEQ CAPSULE ER PO ×2 (08:35→11:54)
[2023-10-01] MEDS: SERTRALINE 100 MG TABLET PO (08:36)
[2023-10-01] MEDS: lisinopriL 20 MG TABLET PO (08:36)
[2023-10-01] MEDS: SODIUM CHLORIDE 0.9 % (FLUSH) 10 ML SYRINGE 5 ML IVF (08:37)
[2023-10-01 11:00] VITALS: BP 198/138; PULSE 85; RESP 18; TEMP 36.6; O2SAT 94
[2023-10-01] MEDS: METHADONE 5 MG TABLET 2.5 MG PO (11:30)
[2023-10-01] MEDS: AMLODIPINE 5 MG TABLET 2.5 MG PO (11:54)
[2023-10-01 11:55] VITALS: BP 170/93; PULSE 89
--- NOTE | 2023-10-01 14:24 | PC.NURSE ---
Patient discharged to [facility] accompanied by her son, Dante. Patient ambulatory, afebrile and VSS at time of discharge. Discharge education and medication instructions reviewed with patient and her son who both verbalized understanding. Paperwork provided to patient as well as a packet for patient to provide to nurse at [place]. Nurse called and spoke with Alize at [facility] and provided nurse-nurse update on pt condition. Patient and son escorted out by this nurse. Pt denies any pain or nausea at time of discharge.
--- NOTE | 2023-10-01 15:06 | P.DS_ITS ---
DS: Providers Provider Date Seen: 10/01/23 Date of admission: 09/27/23 20:11 Primary care physician: Hugo Quezada MD Admitting Clinician: Maximino De Leon MD Attending Physician on discharge: Maximino De Leon MD Date of Discharge: 10/01/23 DS: Diagnosis Discharge Diagnosis (1) Hypoxic respiratory failure: Status: Acute Problem details: Due to influenza a pneumonia. During her hospital stay she had steady improvement in hypoxia, dyspnea, abnormal lung sounds. Treated with Tamiflu (2) Influenza A: Status: Acute Problem details: Has finished a 5 day course of Tamiflu (3) Multiple myeloma not having achieved remission: Status: Acute Problem details: IgG Silex, risk difficult to assess (gain of 1q is classified as a high risk cytogenetic category however a trisomy of 1 or more odd numbered chromosomes may ameliorate this risk (mSMART 3.0). Temporarily hold treatment with Revlimid and dexamethasone (4) Hypertension: Status: Acute Problem details: Patient has lifelong high blood pressure. She has been recently treated with lisinopril 20 mg daily. In the hospital her blood pressures have been moderately elevated. Reviewing her past medical history shows that she has had [id number] elevation of blood pressure in the oncology clinic. She has been doing virtual visits with primary care and so not having outpatient blood pressure monitoring there. After discussion I recommend we start amlodipine 2.5 mg daily for follow-up evaluation. I did obtain renin activity and aldosterone testing due to also having hypokalemia despite being on lisinopril. Results of that are pending DS: Summary Hospital Course Hospital Course: 83-year-old female being treated for multiple myeloma admitted to the hospital with diagnosis of influenza and worsening dyspnea and hypoxia. Time of admission she was found to have diffuse patchy infiltrates consistent with a viral pneumonia. Breath sounds had diffuse wheezing and crackles and rhonchi. She was treated with Tamiflu and oxygen. Over the the four days in the hospital she had steady improvement in her symptoms, she weaned off oxygen is 8 pill to maintain O2 sats in the 90s. She continued to have cough but less productive. Her wheezing resolved and overall she was feeling much better. Blood pressure consistently elevated at moderately severe hypertension levels Status at Discharge Functional status at discharge: independent ambulation Overall status at discharge: patient is progressing back to baseline Time Spent with Patient Time attestation: Total time spent providing and/or coordinating discharge services: 40 Time spent: Greater than 30 minutes Exam Narrative: Exam Narrative: She is alert appears in no distress. Respirations are clear to auscultation except for rare crackles. No prolonged expiratory phase. Fairly good air exchange in all lung garcia. Cardiovascular: S1, S2, regular rate and rhythm. No murmur gallop or rub. Const: Vital Signs, click to edit/add: Vital Signs - 24 hr 09/30/23 15:30 09/30/23 15:30 09/30/23 15:30 Temperature 98.3 F Pulse Rate [Left R adial] 83 83 Respiratory Rate 20 20 20 Blood Pressure [Le ft Arm] Blood Pressure [Ri ght Arm] 193/119 H Pulse Oximetry 90 90 Oxygen Delivery Me thod Room Air Room Air 09/30/23 17:00 09/30/23 19:00 09/30/23 23:00 Temperature 98.8 F 97.7 F Pulse Rate [Left R adial] 83 97 97 Respiratory Rate 20 20 20 Blood Pressure [Le ft Arm] 191/112 H Blood Pressure [Ri ght Arm] 185/108 H 130/67 Pulse Oximetry 94 90 Oxygen Delivery Me thod Room Air Room Air 09/30/23 23:00 09/30/23 23:00 10/01/23 03:00 Temperature 98 F 98 F Pulse Rate [Left R adial] 78 76 Respiratory Rate 20 20 20 Blood Pressure [Le ft Arm] 196/95 H Blood Pressure [Ri ght Arm] Pulse Oximetry 89 89 90 Oxygen Delivery Me thod Room Air Room Air Room Air 10/01/23 07:00 10/01/23 07:00 10/01/23 11:00 Temperature 97.8 F 97.9 F Pulse Rate [Left R adial] 71 85 Respiratory Rate 16 16 18 Blood Pressure [Le ft Arm] 190/92 H Blood Pressure [Ri ght Arm] 198/138 H Pulse Oximetry 93 93 94 Oxygen Delivery Me thod Room Air Room Air Room Air 10/01/23 11:55 Temperature Pulse Rate [Left R adial] 89 Respiratory Rate Blood Pressure [Le ft Arm] Blood Pressure [Ri ght Arm] 170/93 H Pulse Oximetry Oxygen Delivery Me thod DS: Data Data Completed and Pending Pending studies at discharge: Plasma Sophie activity, plasma aldosterone Labs on day of discharge: Labs from last 24 hours 12/26/23 12/26/23 12/26/23 10:00 07:34 05:52 WBC 4.73 RBC 4.08 Hgb 12.2 Hct 38.9 MCV 95 MCH 30 MCHC 31 L RDW Coeff of Cesario 13.6 Plt Count 329 Neut % (Auto) 57.3 Lymph % (Auto) 23.5 Payette % (Auto) 16.9 H Eos % (Auto) 0.8 Baso % (Auto) 1.1 Neut # (Auto) 2.71 Lymph # (Auto) 1.11 Payette # (Auto) 0.80 Eos # (Auto) 0.04 Baso # (Auto) 0.05 Abs Immat Gran (auto) 0.02 Imm/Tot Granulo (auto) 0.4 Sodium 140 Potassium 3.4 L Chloride 104 Carbon Dioxide 32 Anion Gap 4 L BUN 17 Creatinine 0.7 Estimated Creat Clear 33.94 Estimated GFR 86 Glucose 93 Calcium 8.7 Magnesium 2.1 Renin Baseline Pending Aldosterone Pending Lab Acknowledgement Test Added Imaging Chest x-ray: Radiologist's impression: INDICATION: COUGH, SOB, INFLUENZA. TECHNIQUE: Chest 1 view. COMPARISON: None. FINDINGS: Cardiovascular and mediastinum: Cardiomediastinal silhouette is within normal limits. Lungs and pleural spaces: A perihilar and lower lobe interstitial opacities and linear opacities. No evidence of pleural effusion. No pneumothorax identified. Bones and soft tissues: Unremarkable. IMPRESSION: Diffuse interstitial opacities, can be seen in setting of viral illness, airways disease. Mild bibasilar atelectasis. Discharge Plan Discharge Disposition: Home, Self-Care Date of Admission: 09/27/23 20:11 Attending Provider on Discharge: Maximino De Leon Primary Care Provider: Hugo Quezada Condition: Unchanged Anticipated Discharge Date/Time: 10/01/23 13:00 Discharge Medications: New amlodipine 2.5 mg tablet 2.5 mg PO DAILY Qty: 30 2RF potassium chloride 10 mEq capsule, extended release 10 meq PO DAILY Qty: 30 0RF Continued methadone 5 mg tablet 5 mg PO Q12H famotidine [Acid Controller] 20 mg tablet 20 mg PO DAILY epinephrine 0.3 mg/0.3 mL auto-injector 0.3 mg IM PRN PRN lisinopril 20 mg tablet 20 mg PO DAILY sertraline 100 mg tablet 100 mg PO DAILY Patient Comments: TAKE 1 TABLET(100MG) BY MOUTH EVERY MORNING levothyroxine 88 mcg tablet 88 mcg PO DAILY Patient Comments: TAKE 1 TABLET BY MOUTH ONCE DAILY. polyethylene glycol 3350 [Gavilax] 17 gram/dose powder 17 g PO DAILY PRN Patient Comments: MIX 17 GMS OF POWDER IN LIQUID AND DRINK ONCE DAILY lenalidomide [Revlimid] 15 mg capsule 15 mg PO .COMPLEX Rx Instructions: 15 mg orally takes 21days, 7 days off; Take days of revlamid cycle. oseltamivir [Tamiflu] 30 mg capsule 30 mg PO BID 5 Days Qty: 9 0RF Rx Instructions: Needs next dose tomorrow morning, first dose given in ED 09/23 6pm dexamethasone 4 mg tablet 20 mg PO .weekly Qty: 20 2RF Rx Instructions: Take on day 1,8,15,22 of each cycle. Take in the morning with food. Discharge Orders: Discharge Order (Routine); Ordered 10/01/23 Ordered By: Maximino De Leon Patient Education: Potassium Chloride (By mouth), Amlodipine (By mouth), Heart Failure (DC), Influenza (DC) Additional Instructions: Follow-up with primary care appointment in 1-2 weeks to recheck your influenza, blood pressure and potassium. Continue follow-up with Oncology Clinic as previously scheduled. Activity Level: Activity as Tolerated Discharge Diet: Regular Follow Up Appointments: Hugo Quezada MD [Primary Care Provider] - Renetta Lei MD [Staff Physician] - 10/14/23 3:00 pm ([facility] to establish new patient care.) Forms: [employer] Info Instructions
[2023-10-04 08:15] LABS: Renin Activity 0.5 ng/mL/hr
== END 2023-10-01 13:45 | disposition home or self-care (01) | DRG 189 ==
LOC: ED 19:25 → MEDSURG 19:56
PROVIDERS: Admitting Provider Family Medicine; Emergency Provider Emergency Medicine Emergency Medical Services; PCP Family Medicine; Visit Provider Family Medicine
DX: J96.01 Acute respiratory failure with hypoxia (principal); J10.01 Influenza due to other identified influenza virus with the same other identified influenza virus pneumonia; C90.00 Multiple myeloma not having achieved remission; I10 Essential (primary) hypertension; M54.9 Dorsalgia, unspecified
CPT/HCPCS: 36415; 71045; 80048; 82088; 82803; 83735; 83880; 84145; 84244; 85025; 85379; 87631; 93005; 94640; 94664; 94761; 99284; G0378; A9270; J1100; J1650

== ENCOUNTER 2023-11-11 10:30 | Outpatient (RCR) | payer MEDICARE, BC, SELFPAY ==
[2023-06-03 10:27] LABS: Basophils Absolute Auto 0.06 K/uL (0.00-0.30); Basophils Percent Auto 0.9 % (0.0-3.0); Eosinophils Absolute Auto 0.39 K/uL (0.00-0.50); Eosinophils Percent Auto 5.7 % (0.0-7.0); Hematocrit 41.4 % (33.0-51.0); Hemoglobin* 12.8 gm/dL (12.0-16.0); Immature Granulocytes Abs Auto 0.03 K/uL (0.00-0.30); Immature Granulocytes Pct Auto 0.4 %; Lymphocytes Percent Auto 19.5 % (20-44); Mean Corpuscular HGB Conc 31 gm/dL (32-36); Mean Corpuscular Hemoglobin 30 pg (26-34); Mean Corpuscular Volume 97 fL (80-100); Monocytes Percent Auto 16.6 % (0.0-11.0); Neutrophils Percent Auto 56.9 % (42.0-72.0); Platelet Count* 239 K/uL (140-440); Red Blood Count 4.25 m/uL (4.00-5.20); White Blood Count* 6.86 K/uL (4.50-11.00)
[2023-06-03 10:34] LABS: Slide Review Reflex No
[2023-06-03 10:42] LABS: Albumin* 3.8 g/dL (3.3-5.0); Chloride* 105 mmol/L (96-114); Potassium* 3.9 mmol/L (3.6-5.1); Sodium* 140 mmol/L (135-149)
[2023-06-03 10:44] LABS: Creatinine* 0.9 mg/dL (0.5-1.5); Estimated Glomerular Filt Rate 63 ml/min
[2023-06-03 10:45] LABS: Alanine Aminotransferase* 19 U/L (4-35); Alkaline Phosphatase* 65 U/L (40-150); Anion Gap 4 mEq/L (7-15); Aspartate Amino Transferase* 24 U/L (12-35); Bilirubin Total* 0.4 mg/dL (0.1-1.5); Blood Urea Nitrogen* 14 mg/dL (7-30); Calcium* 9.1 mg/dL (8.4-10.6); Carbon Dioxide* 31 mmol/L (20-32); Glucose* 73 mg/dL (60-115); Total Protein* 6.8 g/dL (6.0-8.3)
--- NOTE | 2023-06-03 14:09 | ONC.NURNOTE ---
Lab results called to Nehemiah as stable and within normal limits to start lenalidomide on
--- NOTE | 2023-06-25 09:08 | ONC.NURNOTE ---
Revlimid script faxed into [facility] specialty pharmacy. Survey done and auth # obtained.
[2023-07-01 13:37] LABS: Basophils Absolute Auto 0.04 K/uL (0.00-0.30); Basophils Percent Auto 0.6 % (0.0-3.0); Eosinophils Absolute Auto 0.35 K/uL (0.00-0.50); Eosinophils Percent Auto 5.5 % (0.0-7.0); Hematocrit 39.5 % (33.0-51.0); Hemoglobin* 12.4 gm/dL (12.0-16.0); Immature Granulocytes Abs Auto 0.03 K/uL (0.00-0.30); Immature Granulocytes Pct Auto 0.5 %; Mean Corpuscular HGB Conc 31 gm/dL (32-36); Mean Corpuscular Hemoglobin 31 pg (26-34); Mean Corpuscular Volume 98 fL (80-100); Monocytes Percent Auto 18.8 % (0.0-11.0); Neutrophils Absolute Auto 3.54 K/uL (1.7-7.0); Neutrophils Percent Auto 55.6 % (42.0-72.0); Platelet Count* 235 K/uL (140-440); RDW Coefficient of Variation % 13.6 % (11.5-15.5); Red Blood Count 4.04 m/uL (4.00-5.20); White Blood Count* 6.37 K/uL (4.50-11.00)
[2023-07-01 13:43] LABS: Slide Review Reflex No
[2023-07-01 13:50] LABS: Albumin* 3.7 g/dL (3.3-5.0)
[2023-07-01 13:51] LABS: Chloride* 109 mmol/L (96-114); Sodium* 140 mmol/L (135-149)
[2023-07-01 13:53] LABS: Anion Gap 8 mEq/L (7-15); Aspartate Amino Transferase* 22 U/L (12-35); Bilirubin Total* 0.3 mg/dL (0.1-1.5); Carbon Dioxide* 23 mmol/L (20-32); Creatinine* 0.9 mg/dL (0.5-1.5); Estimated Glomerular Filt Rate 63 ml/min; Total Protein* 6.6 g/dL (6.0-8.3)
[2023-07-01 13:54] LABS: Alanine Aminotransferase* 18 U/L (4-35); Alkaline Phosphatase* 71 U/L (40-150); Blood Urea Nitrogen* 12 mg/dL (7-30); Calcium* 8.9 mg/dL (8.4-10.6); Glucose* 103 mg/dL (60-115)
--- NOTE | 2023-07-02 13:55 | ONC.NURNOTE ---
Lab results reviewed by content writer and called to Nehemiah amaya she will start lenolidamide tomorrow- results to reviewed by Dr Boykin on follow up appt 07/18
[2023-07-03 23:57] LABS: Albumin 3.73 g/dL (3.75-5.01); Alpha 1 Globulin 0.27 g/dL (0.19-0.46); Alpha 2 Globulin 0.68 g/dL (0.48-1.05); Immunofixation IFE Done; Immunoglobulin A 129 mg/dL (68-408); Immunoglobulin G 1065 mg/dL (768-1632); Immunoglobulin M 40 mg/dL (35-263); Kappa Qnt Free Light Chains 28.91 mg/L (3.30-19.40); Lambda Qnt Free Light Chains 14.49 mg/L (5.71-26.30); Monoclonal Protein 0.64 g/dL; Total Protein, Serum 6.2 g/dL (6.3-8.2)
[2023-07-29 10:38] LABS: Basophils Absolute Auto 0.07 K/uL (0.00-0.30); Basophils Percent Auto 1.2 % (0.0-3.0); Eosinophils Absolute Auto 0.28 K/uL (0.00-0.50); Eosinophils Percent Auto 4.6 % (0.0-7.0); Hematocrit 45.1 % (33.0-51.0); Immature Granulocytes Abs Auto 0.02 K/uL (0.00-0.30); Immature Granulocytes Pct Auto 0.3 %; Lymphocytes Absolute Auto 1.35 K/uL (0.90-2.90); Lymphocytes Percent Auto 22.4 % (20-44); Mean Corpuscular HGB Conc 31 gm/dL (32-36); Mean Corpuscular Hemoglobin 31 pg (26-34); Mean Corpuscular Volume 98 fL (80-100); Monocytes Percent Auto 18.4 % (0.0-11.0); Neutrophils Absolute Auto 3.21 K/uL (1.7-7.0); Neutrophils Percent Auto 53.1 % (42.0-72.0); Platelet Count* 219 K/uL (140-440); RDW Coefficient of Variation % 13.1 % (11.5-15.5); Red Blood Count 4.59 m/uL (4.00-5.20); White Blood Count* 6.04 K/uL (4.50-11.00)
[2023-07-29 10:40] LABS: Slide Review Reflex No
[2023-07-29 10:43] LABS: Albumin* 4.1 g/dL (3.3-5.0); Chloride* 106 mmol/L (96-114)
[2023-07-29 10:44] LABS: Potassium* 3.6 mmol/L (3.6-5.1); Sodium* 140 mmol/L (135-149)
[2023-07-29 10:46] LABS: Anion Gap 5 mEq/L (7-15); Bilirubin Total* 0.5 mg/dL (0.1-1.5); Carbon Dioxide* 29 mmol/L (20-32); Creatinine* 0.8 mg/dL (0.5-1.5); Est. Creatinine Clearance* 36.33; Estimated Glomerular Filt Rate 73 ml/min; Total Protein* 7.4 g/dL (6.0-8.3)
[2023-07-29 10:47] LABS: Alanine Aminotransferase* 17 U/L (4-35); Alkaline Phosphatase* 70 U/L (40-150); Aspartate Amino Transferase* 30 U/L (12-35); Blood Urea Nitrogen* 13 mg/dL (7-30); Glucose* 86 mg/dL (60-115)
--- NOTE | 2023-07-29 12:01 | ONC.NURNOTE ---
lab results reviewed and called to Nehemiah as stable to restart her lenolidamide on 08/01/[address] Boykin
[2023-08-26 09:59] LABS: Basophils Absolute Auto 0.06 K/uL (0.00-0.30); Basophils Percent Auto 0.8 % (0.0-3.0); Eosinophils Absolute Auto 0.28 K/uL (0.00-0.50); Eosinophils Percent Auto 3.9 % (0.0-7.0); Hematocrit 43.4 % (33.0-51.0); Hemoglobin* 13.6 gm/dL (12.0-16.0); Immature Granulocytes Abs Auto 0.04 K/uL (0.00-0.30); Immature Granulocytes Pct Auto 0.6 %; Lymphocytes Percent Auto 17.9 % (20-44); Mean Corpuscular HGB Conc 31 gm/dL (32-36); Mean Corpuscular Hemoglobin 30 pg (26-34); Mean Corpuscular Volume 97 fL (80-100); Monocytes Percent Auto 16.8 % (0.0-11.0); Neutrophils Absolute Auto 4.36 K/uL (1.7-7.0); Platelet Count* 308 K/uL (140-440); RDW Coefficient of Variation % 13.5 % (11.5-15.5); Red Blood Count 4.48 m/uL (4.00-5.20); White Blood Count* 7.26 K/uL (4.50-11.00)
[2023-08-26 10:08] LABS: Slide Review Reflex No
[2023-08-26 10:19] LABS: Albumin* 4.2 g/dL (3.3-5.0); Chloride* 105 mmol/L (96-114); Potassium* 3.6 mmol/L (3.6-5.1); Sodium* 140 mmol/L (135-149)
[2023-08-26 10:21] LABS: Bilirubin Total* 0.3 mg/dL (0.1-1.5); Creatinine* 0.8 mg/dL (0.5-1.5); Est. Creatinine Clearance* 36.33; Estimated Glomerular Filt Rate 73 ml/min
[2023-08-26 10:22] LABS: Alanine Aminotransferase* 19 U/L (4-35); Alkaline Phosphatase* 80 U/L (40-150); Anion Gap 8 mEq/L (7-15); Aspartate Amino Transferase* 24 U/L (12-35); Blood Urea Nitrogen* 11 mg/dL (7-30); Carbon Dioxide* 27 mmol/L (20-32); Glucose* 85 mg/dL (60-115); Total Protein* 7.2 g/dL (6.0-8.3)
--- NOTE | 2023-08-27 14:21 | ONC.NURNOTE ---
Lab results reviewed by Deirdre Rodriguez as stable and called to Nehemiah Will start her lenolidamide on next appts reviewed
--- NOTE | 2023-09-23 10:25 | ONC.NURNOTE ---
Addendum entered by Rina Wiggins RN 09/23/23 13:45: Aurelia from [employer] called with concerns of Nehemiah having sinus congestion, nasal drip, pt doesn't feel well, vitals stable. Dietary Services Director recommended pt to be tested for Covid and flu, Aurelia states she did test negative for Covid and flu. Dietary Services Director still recommended pt be seen by primary care provider if pt feels unwell. Yuly will call on Saturday from [employer] with update on how pt is feeling. Original Note: Patient called to reschedule her lab appt for later this week due to cold symptoms
--- NOTE | 2023-09-25 15:51 | ONC.NURNOTE ---
Received call from nurse Aurelia with [facility] who manages pt's Revlimid administration. Pt tested positive from Influenza 09/20/23 and began Tamiflu 09/23/23 (ED visit). Asking if pt should start Revlimid tomorrow 09/26 as previously planned. Reviewed with [facility] RN Navigator. Pt should wait to start Rev until feeling well and will need labwork prior. Pt to call [facility] early next week to update and schedule lab. Tentative start date Revlimid: 10/03/23. nurse Aurelia at [facility] P: [phone]
--- NOTE | 2023-10-11 15:57 | ONC.NURNOTE ---
Revlimid has been on hold since inpatient for influenza patient sees Dr Lei on Saturday and will get labs for Dr Boykin appt on 10/17/23 on Saturday prior to her appt with Dr Lei patient reports feeling much better and recovering from her illness
[2023-10-14 14:54] LABS: Basophils Absolute Auto 0.02 K/uL (0.00-0.30); Basophils Percent Auto 0.3 % (0.0-3.0); Eosinophils Percent Auto 2.6 % (0.0-7.0); Hematocrit 42.4 % (33.0-51.0); Hemoglobin* 13.2 gm/dL (12.0-16.0); Immature Granulocytes Abs Auto 0.01 K/uL (0.00-0.30); Immature Granulocytes Pct Auto 0.1 %; Lymphocytes Percent Auto 19.4 % (20-44); Mean Corpuscular HGB Conc 31 gm/dL (32-36); Mean Corpuscular Hemoglobin 30 pg (26-34); Mean Corpuscular Volume 98 fL (80-100); Monocytes Percent Auto 14.5 % (0.0-11.0); Neutrophils Absolute Auto 4.91 K/uL (1.7-7.0); Neutrophils Percent Auto 63.1 % (42.0-72.0); Platelet Count* 343 K/uL (140-440); RDW Coefficient of Variation % 14.1 % (11.5-15.5); Red Blood Count 4.35 m/uL (4.00-5.20); White Blood Count* 7.78 K/uL (4.50-11.00)
[2023-10-14 14:55] LABS: Slide Review Reflex No
[2023-10-14 15:10] LABS: Albumin* 4.3 g/dL (3.3-5.0)
[2023-10-14 15:11] LABS: Chloride* 104 mmol/L (96-114); Potassium* 3.8 mmol/L (3.6-5.1); Sodium* 140 mmol/L (135-149)
[2023-10-14 15:13] LABS: Bilirubin Total* 0.3 mg/dL (0.1-1.5); Creatinine* 0.9 mg/dL (0.5-1.5); Est. Creatinine Clearance* 36.33; Estimated Glomerular Filt Rate 63 ml/min
[2023-10-14 15:14] LABS: Alanine Aminotransferase* 13 U/L (4-35); Alkaline Phosphatase* 86 U/L (40-150); Anion Gap 8 mEq/L (7-15); Aspartate Amino Transferase* 23 U/L (12-35); Blood Urea Nitrogen* 16 mg/dL (7-30); Calcium* 8.9 mg/dL (8.4-10.6); Carbon Dioxide* 28 mmol/L (20-32); Glucose* 126 mg/dL (60-115); Total Protein* 8.2 g/dL (6.0-8.3)
[2023-10-18 01:54] LABS: Albumin 4.16 g/dL (3.75-5.01); Alpha 1 Globulin 0.27 g/dL (0.19-0.46); Alpha 2 Globulin 0.84 g/dL (0.48-1.05); Immunofixation IFE Done; Immunoglobulin A 191 mg/dL (68-408); Immunoglobulin G 1662 mg/dL (768-1632); Immunoglobulin M 40 mg/dL (35-263); Kappa Qnt Free Light Chains 37.59 mg/L (3.30-19.40); Kappa/Lambda Light Chain Ratio 3.61 (0.26-1.65); Lambda Qnt Free Light Chains 10.41 mg/L (5.71-26.30); Monoclonal Protein 0.93 g/dL; Total Protein, Serum 7.4 g/dL (6.3-8.2)
--- NOTE | 2023-10-18 10:13 | ONC.NURNOTE ---
Addendum entered by So Monroe RN 10/31/23 12:54: results reviewed by Dr Boykin Original Note: Myeloma labs called to [facility] with noted increase patient was off Revlimid from 09/25/23-10/17/23 due to hospitalization with influenza results emailed to Dr Boykin
--- NOTE | 2023-11-05 15:03 | ONC.NURNOTE ---
Addendum entered by So Monroe RN 11/07/23 10:44: Nehemiah phoned in an update: started 1 imodium/day and says her bowels have returned to her baseline moving bowels twice daily-describes as mushy stool discussed option of adding 2nd imodium during day if stools become looser or to take QOD is stools firm up Original Note: Nehemiah called with recent onset of freq loose stools that occur shortly after she eats- describes a soft unformed- not watery Nehemiah also recently stopped her long time dose of methadone- she is not having any pain- Nehemiah thinks the onset of diarrhea coincided with the stopping of methadone recommended to start Imodium 1-2 in the am, repeat again if needed later in the day, and to call with follow up in a day or two diarrhea is a frequently reported side effect of revlimid
[2023-11-11 11:03] LABS: Basophils Absolute Auto 0.05 K/uL (0.00-0.30); Basophils Percent Auto 0.7 % (0.0-3.0); Eosinophils Absolute Auto 0.13 K/uL (0.00-0.50); Eosinophils Percent Auto 1.9 % (0.0-7.0); Hematocrit 41.5 % (33.0-51.0); Hemoglobin* 13.5 gm/dL (12.0-16.0); Immature Granulocytes Abs Auto 0.03 K/uL (0.00-0.30); Immature Granulocytes Pct Auto 0.4 %; Lymphocytes Percent Auto 18.3 % (20-44); Mean Corpuscular HGB Conc 33 gm/dL (32-36); Mean Corpuscular Hemoglobin 31 pg (26-34); Mean Corpuscular Volume 95 fL (80-100); Monocytes Percent Auto 17.3 % (0.0-11.0); Neutrophils Absolute Auto 4.29 K/uL (1.7-7.0); Neutrophils Percent Auto 61.4 % (42.0-72.0); Platelet Count* 334 K/uL (140-440); RDW Coefficient of Variation % 14.4 % (11.5-15.5); Red Blood Count 4.39 m/uL (4.00-5.20); White Blood Count* 6.99 K/uL (4.50-11.00)
[2023-11-11 11:28] LABS: Albumin* 3.9 g/dL (3.3-5.0); Chloride* 108 mmol/L (96-114); Potassium* 3.3 mmol/L (3.6-5.1); Sodium* 138 mmol/L (135-149)
[2023-11-11 11:31] LABS: Alanine Aminotransferase* 18 U/L (4-35); Alkaline Phosphatase* 81 U/L (40-150); Anion Gap 9 mEq/L (7-15); Aspartate Amino Transferase* 21 U/L (12-35); Bilirubin Total* 0.4 mg/dL (0.1-1.5); Blood Urea Nitrogen* 10 mg/dL (7-30); Carbon Dioxide* 21 mmol/L (20-32); Creatinine* 0.7 mg/dL (0.5-1.5); Est. Creatinine Clearance* 35.19; Estimated Glomerular Filt Rate 86 ml/min; Glucose* 108 mg/dL (60-115); Total Protein* 7.3 g/dL (6.0-8.3)
[2023-11-11 11:32] LABS: Calcium* 8.7 mg/dL (8.4-10.6)
[2023-11-11 11:36] LABS: Slide Review Reflex No
--- NOTE | 2023-11-12 14:57 | ONC.NURNOTE ---
Specialty Pharmacy changed to [facility] from [facility] per insurance requirement new RX info faxed yesterday to [facility] Rx being expedited as patient due to start on Saturday patient informed of this update
--- NOTE | 2023-11-12 14:58 | ONC.NURNOTE ---
Lab results called to [facility] with noted K at 3.3- Nehemiah has K at home and understands she should continue to take
--- NOTE | 2023-11-14 16:24 | ONC.NURNOTE ---
Addendum entered by So Monroe RN 11/18/23 10:56: lenolidamide was received on 11/16 and patient started cycle on 11/16 Original Note: Called [facility] and they stated that the Revlimid is ready to be delivered. They attempted to reach patient to schedule a delivery time. Patient was unable to hear them on the phone. [employer] called patient and gave her the number to call to set up a delivery time. Patient verbalized understanding.
== END 2023-11-30 23:59 | disposition home or self-care (01) ==
LOC: CCIC 10:30
PROVIDERS: Clinical Nurse Specialist; PCP Family Medicine; Referring Provider Family Medicine; Visit Provider Internal Medicine Hematology & Oncology
DX: C90.00 Multiple myeloma not having achieved remission (principal)
CPT/HCPCS: 36415; 80053; 82784; 83520; 84155; 84165; 85025; 86334; 99212; 99214; 99215; G0463

== ENCOUNTER 2024-04-06 09:07 | Outpatient (CLI) | payer MEDICARE, BC, SELFPAY ==
--- OUTSIDE RECORDS SUMMARY | 2024-04-06 09:12 | XMS_ITS | Clinical Summary ---
Author Organization [facility] Address [place], [place] [address] Care Team Providers Care Novelty Maker Name Role Phone Sanjeev Lepe MD Unavailable [phone] Hugo Quezada MD Primary Care Provider Allergies Active Allergy Reactions Criticality Noted Date Comments Hymenoptera Allergenic Extract Shortness Of Breath 01/23/2007 Tree Nut Shortness Of Breath 01/23/2007 Peanut Shortness Of Breath 01/23/2007 Medications Medication Sig Dispensed Refills Start Date End Date Status EPINEPHrine (EPIPEN 2-BRUCE) 0.3 mg/0.3 mL injectionIndica tions:Environme ntal allergies INJECT 0.3 MG INTRAMUSCULINTRAMUSCULAR ONE TIME FOR 1 DOSE 2 Each 11/16/19 21 Active polyethylene glycoL (MIRALAX) 17 gram/dose powder As directed 1 scoop once daily. Take 2 doses day 1 (08/17/21), then 1 dose a day until stools soft and regular. Active bisacodyl 10 mg suppository (DULCOLAX)(AMB HOSP CCK)Indications :Hospice care patient CCK: Insert 1 suppository rectally every other day as needed for constipation 2 Suppository 10/27/19 22 Active sennosides-docu sate (Senna Laxative-Stool Softener) (8.6-50 mg) tablet Take 1 to 5 Tablets by mouth 2 times daily if needed for constipation. 100 Tablet 10/27/19 22 Active dexAMETHasone (DECADRON) 4 mg tablet 03/07/20 22 Active Revlimid 15 mg cap capsule 03/09/20 22 Active prochlorperazin e tablet (COMPAZINE)(AMB HOSP CCK)Indications :Hospice care patient CCK: Take 1 TABLET by mouth every 6 hours as needed for nausea or vomiting. (CARDED) 15 Tablet 03/16/20 Active hospital bedIndications: Multiple myeloma, remission status unspecified (HC) Hospital bed with mattress and 1/2 rails. Semi-electric bed. Length of need 99 months. Bed associate product integrity engineer:no 1 Each 06/18/20 Active hospital bedIndications: Multiple myeloma, remission status unspecified (HC) Hospital bed with mattress and 1/2 rails. Semi-electric bed. Length of need 99 months. Bed associate product integrity engineer:no 1 Each 06/18/20 Active LORazepam (ATIVAN) 0.5 mg tabIndications: Situational anxiety Take 1 Tablet (0.5 mg) by mouth every 6 hours if needed for Anxiety. 30 Tablet 03/03/20 23 Active acetaminophen (TYLENOL EXTRA STRGTH) 500 mg tabletIndicatio ns:Pain TAKE 1 TABLET BY MOUTH 3 TIMES DAILY NEEDED FOR PAIN 90 Tablet 03/08/20 23 Active methadone (DOLOPHINE) 5 mg tabletIndicatio ns:Multiple myeloma, remission status unspecified (HC) TAKE 1 TABLET BY MOUTH TWICE DAILY *BOTTLE* 60 Tablet 08/05/20 23 Active amLODIPine (NORVASC) 2.5 mg tabletIndicatio ns:Essential hypertension TAKE 1 TABLET BY MOUTH DAILY *BOTTLES* 28 Tablet 12/13/19 24 Active potassium chloride (MICRO-K) 10 mEq Controlled-rele ase capsuleIndicati ons:Hypokalemia TAKE 1 CAPSULE BY MOUTH DAILY *BOTTLES* 90 Capsule 12/13/19 24 Active levothyroxine (SYNTHROID) 88 mcg tabletIndicatio ns:Hypothyroidi sm, unspecified type TAKE 1 TABLET BY MOUTH EVERY MORNING *BOTTLE* 28 Tablet 02/05/20 24 Active lisinopriL (PRINIVIL; ZESTRIL) 20 mg tabletIndicatio ns:Essential hypertension TAKE 1 TABLET BY MOUTH DAILY *BOTTLE* 28 Tablet 12 02/05/20 24 Active sertraline (ZOLOFT) 100 mg tabletIndicatio ns:Anxiety state TAKE 1 TABLET BY MOUTH EVERY MORNING *BOTTLE* 28 Tablet 5 02/05/20 24 Active Active Problems Problem Noted Date Diagnosed Date ACP (advance care planning) 10/27/2021 Overview: DNR/DNI; No Tube Feedings; Oral Antibiotics for Comfort only; POLST. Encounter for admission to hospice care 10/26/19 22 Overview: [facility] Physician Note Verification of Hospice Diagnosis Nehemiah Pineda Date of : 1940 Case reviewed with [facility] Admission Nurse as documented below. Primary Terminal Diagnosis: Multiple myeloma Secondary Diagnoses Contributing to Terminal Prognosis: 1. depression Treatments NOT COVERED by Hospice Associated Diagnosis Rationale for non coverage 1. CaCO3, Vit D 1. supplement Treatment not related to terminal diagnosis or prognosis 2. ASA 2. CVA prophylaxis Preventive anticoagulation no longer indicated in the setting of terminal illness. 3. synthroid 3. hypothyroid Treatment is directed at a chronic and/or stable disease which does not impact the terminal illness trajectory or symptom management. 4. lisinopril 4. HTN Treatment is directed at a chronic and/or stable disease which does not impact the terminal illness trajectory or symptom management Nehemiah Pineda is a 81 y.o. female with h/o multiple myeloma (dxed 07/2021) s/p chemotherapy who has had a precipitous decline over the last 3 months. Her pain has been progressively worsening with decreased level of function without desire for further chemotherapy. She recently moved into an [facility] two months ago, and is currently ambulating with walker. She is independent with all ADLs but is more limited due to increasing pain. She is continent of bowel/bladder, and sleeping 6-8 hr/day. Her appetite is fair to poor without recent weight loss (currently 125 lbs). Her PPS is currently 50% and was 100% three months prior. Goals are for comfort without further chemotherapy or hospitalizations (DNR/DNI). Based on her multiple myeloma with increasing pain, weakness, reduced intake, and functional decline she has a very poor prognosis with expected survival of <6 months. Hong Arizmendi, DO [facility] Pager [phone] Hong Arizmendi, DO .................... 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 Chronic hepatitis C without hepatic coma 021 Overview: Completed 8 weeks antiviral therapy(fall 2019) with clearing of HCV Anxiety state, unspecified 12/13/2008 HYPERTENSION 05/18/2008 Overview: Patient always has high readings in clinic - monitors at home with readings at goal of <130/80 BP controlled on lisinopril Unspecified hypothyroidism 07/15/2007 Hepatitis, chronic Resolved Problems Problem Noted Date Diagnosed Date Resolved Date Unspecified asthma(493.90) 1 Encounters Date Type Department Care Team Description 02/14/[address] [phone] Hugo Quezada MD Refill Request (Lisinopril) 02/04/[address] [phone] Hugo Quezada MD Refill Request (Levothyroxine, Lisinopril, Sertraline) from Last 3 Months Immunizations Name Administration Dates Next Due Influenza A (H1N1), Inactivated 08/18/2009 Influenza Virus, Unspecified 08/03/2019, 07/22/2017,07/10/2016,2014,06/28/2014,07/01/2013,06/23/2012,0 06/29/2011,07/10/2010 Influenza, High-dose Inactivated 019,07/22/2017,07/10/2016,2014,06/28/2014 Influenza, IIV3 (Age 6-35 mos) 3,06/23/2012,06/29/2011,2009 Influenza, IIV3 (Age >=3 years) 06/20/2016,07/01,08/03/2004 Influenza, IIV4 08/03/2019, 7,07/10/2016,2014,06/28/2014,07/01/2013,06/23/2012,0 06/29/2011,07/10/2010 Influenza, Inactivated IIV3 (Age 65+ Years) Preserv Free 08/06/2018 Pneumococcal Poly,23-Valent (Pneumovax) 08/01/2015,12/18/2010 Tdap 01/21/2007 Family History Medical History Relation Name Comments Other Father Parkinson's Cancer Mother uterine Relation Name Status Comments Father Mother Social History Tobacco Use Types Packs/Day Years Used Date Smoking Tobacco: Never Smokeless Tobacco: Never Tobacco Cessation:Counseling Given: Yes Alcohol Use Standard Drinks/Week Comments No 0 (1 standard drink = 0.6 oz pur e alcohol) PHQ-2 Answer Date Recorded PHQ-2 TOTAL SCORE 0 08/12/2023 Social Connections Answer Date Recorded Frequency of Communication with Friends and Fami ly Not on file 09/27/2021 Financial Resource Strain Answer Date R ecorded Difficulty of Paying Living Expenses Not on file 09/27/2021 Difficulty of Paying Living Expenses Not on file 09/27/2021 Sex and Gender Information Value Date Recorded Sex Assigned at Not on file Gender Identity Not on file Sexual Orientation Not on file Obstetrics History Para Term AB IAB SAB Ectopic Multiple Livin g Live Births 3 3 3 0 0 0 0 0 3 Date Outcome GA Total Labor Labor/2nd/3rd Weight Sex Type Anes PTL Vero A1 A5 Name Clin Term Term Term Last Filed Vital Signs Vital Sign Reading Time Taken Comments Blood Pressure 206/96 12/28/2021 1:44 PM CDT Pulse 122 02/02/2022 10:53 AM CDT Temperature 37.1 ??C (98.8 ??F) 02/02/2022 10:53 AM C DT Respiratory Rate 20 02/02/2022 10:53 AM CDT Oxygen Saturation 95% 02/02/2022 10:53 AM CDT Inhaled Oxygen Concentration - - Weight 53.8 kg (118 lb 8 oz) 02/02/2022 10:53 AM CDT Height 149.9 cm (4' 11) 02/02/2022 10:53 AM CDT Body Mass Index 23.93 02/02/2022 10:53 AM CDT Plan of Treatment Health Maintenance Due Date Last Done Comments Zoster (shingles) series for age 50+ (1 of 2) 1959 Medicare Wellness for age 65+ 01/05/2016 01/04/2015, 12/25/2013, 12/23/2012, Additional history exists Pneumococcal series for age 65+ (3 of 3 - PCV) 08/01/2016 08/01/2015, 12/18/2010 Tetanus booster 01/21/2017 01/21/2007 BMI (ht and wt on same day) for age 18+ 02/02/2023 02/02/2022, 07/12/2021, 05/11/2020, Additional history exists COVID-19 vaccine series (2022- season) 2023 07/22/2023, 08/03/2022, 12/13/2020, Additional history exists Influenza for age 65+ 06/07/2024 08/03/2019 , 08/03/2019, 08/03/2019, Additional history exists Depression screening for age 12+ 08/12/2024 08/12/2023, 02/06/2022, 02/02/2022, Additional history exists Tdap Completed 01/21/2007 DEXA/DXA scan for age 65+ Addressed 12/18/2010 (Dec lined) Overridden with the intention of not completing the topic Advance Directives Documents on File Type Date Recorded Patient Manager Cardiology Expl anation POLST 07/02/2022 5:13 PM POLST 07/02/2022 2:33 PM POLST 11/01/2021 11:20 AM 2 * Full Code (Latest Code Status on File) Date Activated Date Inactivated Comments 07/12/2021 10:26 AM 07/13/2021 2:14 AM Question Answer Comments Code Status Discussion: Not Discussed * Full Code Date Activated Date Inactivated Comments 07/12/2021 10:26 AM 07/12/2021 10:26 AM Question Answer Comments Code Status Discussion: Not Discussed Care Teams Novelty Maker Relationship Specialty Start Date End Date Hugo Quezada MD [address] [facility] [place] [place] [address] PCP - General Family Practice 02/09/22 Sanjeev Lepe MD Cardiology Cardiovascular Disease 05/05/12
== END 2024-04-06 09:08 | disposition home or self-care (01) ==
LOC: NFLDREF 09:08
PROVIDERS: PCP Internal Medicine; Visit Provider Internal Medicine
DX: E03.9 Hypothyroidism, unspecified (principal)
CPT/HCPCS: 84443

== ENCOUNTER 2024-05-28 13:30 | Outpatient (RCR) | payer MEDICARE, BC, SELFPAY ==
[2023-12-11 10:50] LABS: Basophils Absolute Auto 0.04 K/uL (0.00-0.30); Basophils Percent Auto 0.7 % (0.0-3.0); Eosinophils Absolute Auto 0.16 K/uL (0.00-0.50); Eosinophils Percent Auto 2.7 % (0.0-7.0); Hematocrit 42.4 % (33.0-51.0); Hemoglobin* 13.5 gm/dL (12.0-16.0); Immature Granulocytes Abs Auto 0.01 K/uL (0.00-0.30); Immature Granulocytes Pct Auto 0.2 %; Lymphocytes Absolute Auto 1.27 K/uL (0.90-2.90); Lymphocytes Percent Auto 21.8 % (20-44); Mean Corpuscular HGB Conc 32 gm/dL (32-36); Mean Corpuscular Hemoglobin 31 pg (26-34); Mean Corpuscular Volume 96 fL (80-100); Monocytes Percent Auto 18.2 % (0.0-11.0); Neutrophils Absolute Auto 3.28 K/uL (1.7-7.0); Neutrophils Percent Auto 56.4 % (42.0-72.0); Platelet Count* 247 K/uL (140-440); RDW Coefficient of Variation % 14.1 % (11.5-15.5); White Blood Count* 5.82 K/uL (4.50-11.00)
[2023-12-11 10:55] LABS: Slide Review Reflex No
[2023-12-11 11:02] LABS: Chloride* 108 mmol/L (96-114)
[2023-12-11 11:03] LABS: Potassium* 4.4 mmol/L (3.6-5.1); Sodium* 140 mmol/L (135-149)
[2023-12-11 11:05] LABS: Anion Gap 6 mEq/L (7-15); Bilirubin Total* 0.4 mg/dL (0.1-1.5); Carbon Dioxide* 26 mmol/L (20-32); Creatinine* 0.7 mg/dL (0.5-1.5); Estimated Glomerular Filt Rate 86 ml/min; Total Protein* 7.5 g/dL (6.0-8.3)
[2023-12-11 11:06] LABS: Alanine Aminotransferase* 15 U/L (4-35); Alkaline Phosphatase* 83 U/L (40-150); Aspartate Amino Transferase* 23 U/L (12-35); Blood Urea Nitrogen* 15 mg/dL (7-30); Calcium* 9.4 mg/dL (8.4-10.6); Glucose* 94 mg/dL (60-115)
--- NOTE | 2023-12-11 11:12 | ONC.NURNOTE ---
labs noted as stable and called to [facility] due to start lenolidamide on 12/12 or 12/13- medication has been ordered
--- NOTE | 2023-12-19 14:49 | ONC.NURNOTE ---
Nehemiah tested COVID postive today- instructed to hold lenolidamide and call PCP for paxlovid or further instruction plan to follow up with a call in one week Nehemiah has not started her cycle of lenolidamide due to delay's in delivery from [facility]
--- NOTE | 2023-12-23 13:41 | ONC.NURNOTE ---
Nehemiah reports feeling well since taking the paxlovid- started on Saturday12/25/23- Saturday am- no fever, no head aches, no cough, has been working while in quarantine Per Dr Rodriguez- she may start the lenalidomide after completing paxlovid and with out any symptoms of COVID
--- NOTE | 2023-12-26 14:20 | ONC.NURNOTE ---
Nehemiah phoned in today for follow up on covid recovery reports feeling much better- slept last night without coughing- an improvement continues to have a productive cough with some yellowish phlegm, and sinus congestion day 6 and still testing positive- remaining in quarantine in the [facility] facility reports good appetite finished paxlovid yesterday feeling better every day discussed with Deirdre Rodriguez APRN plan to hold lenolidamide until Saturday and may restart if continues with improvement over the next 3 days patient agreeable and will call if any changes
[2024-01-24 11:22] LABS: Basophils Absolute Auto 0.05 K/uL (0.00-0.30); Basophils Percent Auto 0.7 % (0.0-3.0); Eosinophils Percent Auto 1.3 % (0.0-7.0); Hematocrit 43.3 % (33.0-51.0); Hemoglobin* 13.7 gm/dL (12.0-16.0); Immature Granulocytes Abs Auto 0.03 K/uL (0.00-0.30); Immature Granulocytes Pct Auto 0.4 %; Lymphocytes Percent Auto 21.6 % (20-44); Mean Corpuscular HGB Conc 32 gm/dL (32-36); Mean Corpuscular Hemoglobin 31 pg (26-34); Mean Corpuscular Volume 97 fL (80-100); Monocytes Percent Auto 16.7 % (0.0-11.0); Neutrophils Absolute Auto 4.39 K/uL (1.7-7.0); Neutrophils Percent Auto 59.3 % (42.0-72.0); Platelet Count* 342 K/uL (140-440); RDW Coefficient of Variation % 14.2 % (11.5-15.5); Red Blood Count 4.47 m/uL (4.00-5.20); White Blood Count* 7.41 K/uL (4.50-11.00)
[2024-01-24 11:35] LABS: Albumin* 4.1 g/dL (3.3-5.0); Chloride* 111 mmol/L (96-114)
[2024-01-24 11:36] LABS: Potassium* 3.8 mmol/L (3.6-5.1); Sodium* 139 mmol/L (135-149)
[2024-01-24 11:38] LABS: Anion Gap 1 mEq/L (7-15); Aspartate Amino Transferase* 21 U/L (12-35); Bilirubin Total* 0.4 mg/dL (0.1-1.5); Carbon Dioxide* 27 mmol/L (20-32); Creatinine* 0.7 mg/dL (0.5-1.5); Estimated Glomerular Filt Rate 86 ml/min
[2024-01-24 11:39] LABS: Alanine Aminotransferase* 18 U/L (4-35); Alkaline Phosphatase* 80 U/L (40-150); Blood Urea Nitrogen* 13 mg/dL (7-30); Calcium* 9.1 mg/dL (8.4-10.6); Glucose* 99 mg/dL (60-115); Total Protein* 8.2 g/dL (6.0-8.3)
[2024-01-24 12:07] LABS: Slide Review Reflex No
[2024-01-28 15:42] LABS: Albumin 4.07 g/dL (3.75-5.01); Alpha 2 Globulin 0.82 g/dL (0.48-1.05); Immunofixation IFE Done; Immunoglobulin A 172 mg/dL (68-408); Immunoglobulin G 1771 mg/dL (768-1632); Immunoglobulin M 47 mg/dL (35-263); Kappa Qnt Free Light Chains 46.67 mg/L (3.30-19.40); Kappa/Lambda Light Chain Ratio 3.66 (0.26-1.65); Lambda Qnt Free Light Chains 12.74 mg/L (5.71-26.30); Monoclonal Protein 1.23 g/dL (<=0.00); Total Protein, Serum 7.5 g/dL (6.3-8.2)
--- NOTE | 2024-02-03 09:22 | ONC.NURNOTE ---
Patient called office stating that she received information from the [employer] and is wondering is she is needing to do something with this and if it is related to her new pharmacy. Looking into patients prescription for her revlamid, this was switched to [facility] in November, and she does have the [employer] for co-pay relief. Therefore, patient will fill out paperwork and call if she has any questions when she is filling this out.
[2024-02-20 09:46] LABS: Basophils Absolute Auto 0.04 K/uL (0.00-0.30); Basophils Percent Auto 0.6 % (0.0-3.0); Eosinophils Absolute Auto 0.27 K/uL (0.00-0.50); Eosinophils Percent Auto 4.1 % (0.0-7.0); Hematocrit 39.1 % (33.0-51.0); Hemoglobin* 12.5 gm/dL (12.0-16.0); Immature Granulocytes Abs Auto 0.06 K/uL (0.00-0.30); Immature Granulocytes Pct Auto 0.9 %; Lymphocytes Percent Auto 24.5 % (20-44); Mean Corpuscular HGB Conc 32 gm/dL (32-36); Mean Corpuscular Hemoglobin 31 pg (26-34); Mean Corpuscular Volume 98 fL (80-100); Neutrophils Absolute Auto 3.45 K/uL (1.7-7.0); Neutrophils Percent Auto 52.9 % (42.0-72.0); Platelet Count* 289 K/uL (140-440); RDW Coefficient of Variation % 14.5 % (11.5-15.5); Red Blood Count 4.01 m/uL (4.00-5.20); White Blood Count* 6.53 K/uL (4.50-11.00)
[2024-02-20 09:48] LABS: Slide Review Reflex No
[2024-02-20 10:10] LABS: Chloride* 108 mmol/L (96-114); Potassium* 3.5 mmol/L (3.6-5.1); Sodium* 140 mmol/L (135-149)
[2024-02-20 10:12] LABS: Bilirubin Total* 0.4 mg/dL (0.1-1.5); Creatinine* 0.8 mg/dL (0.5-1.5); Estimated Glomerular Filt Rate 73 ml/min
[2024-02-20 10:13] LABS: Alanine Aminotransferase* 17 U/L (4-35); Alkaline Phosphatase* 67 U/L (40-150); Anion Gap 5 mEq/L (7-15); Aspartate Amino Transferase* 25 U/L (12-35); Blood Urea Nitrogen* 16 mg/dL (7-30); Calcium* 8.8 mg/dL (8.4-10.6); Carbon Dioxide* 27 mmol/L (20-32); Glucose* 76 mg/dL (60-115); Total Protein* 7.8 g/dL (6.0-8.3)
[2024-03-19 09:51] LABS: Basophils Absolute Auto 0.04 K/uL (0.00-0.30); Basophils Percent Auto 0.7 % (0.0-3.0); Eosinophils Absolute Auto 0.22 K/uL (0.00-0.50); Eosinophils Percent Auto 3.8 % (0.0-7.0); Hematocrit 37.3 % (33.0-51.0); Hemoglobin* 12.1 gm/dL (12.0-16.0); Immature Granulocytes Abs Auto 0.06 K/uL (0.00-0.30); Lymphocytes Absolute Auto 1.27 K/uL (0.90-2.90); Lymphocytes Percent Auto 22.1 % (20-44); Mean Corpuscular HGB Conc 32 gm/dL (32-36); Mean Corpuscular Hemoglobin 32 pg (26-34); Mean Corpuscular Volume 98 fL (80-100); Monocytes Percent Auto 20.3 % (0.0-11.0); Neutrophils Absolute Auto 2.99 K/uL (1.7-7.0); Neutrophils Percent Auto 52.1 % (42.0-72.0); Platelet Count* 267 K/uL (140-440); RDW Coefficient of Variation % 14.5 % (11.5-15.5); Red Blood Count 3.82 m/uL (4.00-5.20); White Blood Count* 5.75 K/uL (4.50-11.00)
[2024-03-19 09:57] LABS: Slide Review Reflex No
[2024-03-19 10:04] LABS: Chloride* 111 mmol/L (96-114)
[2024-03-19 10:05] LABS: Albumin* 4.1 g/dL (3.3-5.0); Potassium* 3.7 mmol/L (3.6-5.1); Sodium* 139 mmol/L (135-149)
[2024-03-19 10:07] LABS: Anion Gap 4 mEq/L (7-15); Bilirubin Total* 0.7 mg/dL (0.1-1.5); Carbon Dioxide* 24 mmol/L (20-32); Creatinine* 0.7 mg/dL (0.5-1.5); Estimated Glomerular Filt Rate 86 ml/min
[2024-03-19 10:08] LABS: Alanine Aminotransferase* 17 U/L (4-35); Alkaline Phosphatase* 70 U/L (40-150); Aspartate Amino Transferase* 21 U/L (12-35); Blood Urea Nitrogen* 13 mg/dL (7-30); Calcium* 8.9 mg/dL (8.4-10.6); Glucose* 89 mg/dL (60-115); Total Protein* 7.7 g/dL (6.0-8.3)
--- NOTE | 2024-03-19 15:15 | ONC.NURNOTE ---
Lab reviewed by Dr Boykin and called to [facility] lab reports manageable intermittent loose stools- not daily diet and imodium discussed next appts discussed
--- NOTE | 2024-03-31 15:27 | ONC.NURNOTE ---
Patient called and stated she ran out of dexamethasone yesterday when she would normally take it so she needs it refilled. Patient usually takes on Saturday (weekly) so when refilled MD to determine if she takes it on now or holds until Saturday.
[2024-04-17 11:03] LABS: Basophils Absolute Auto 0.04 K/uL (0.00-0.30); Basophils Percent Auto 0.7 % (0.0-3.0); Eosinophils Percent Auto 3.3 % (0.0-7.0); Hematocrit 40.4 % (33.0-51.0); Hemoglobin* 12.6 gm/dL (12.0-16.0); Immature Granulocytes Abs Auto 0.01 K/uL (0.00-0.30); Immature Granulocytes Pct Auto 0.2 %; Lymphocytes Absolute Auto 1.44 K/uL (0.90-2.90); Mean Corpuscular HGB Conc 31 gm/dL (32-36); Mean Corpuscular Hemoglobin 31 pg (26-34); Mean Corpuscular Volume 99 fL (80-100); Neutrophils Absolute Auto 3.28 K/uL (1.7-7.0); Neutrophils Percent Auto 54.8 % (42.0-72.0); Platelet Count* 244 K/uL (140-440); RDW Coefficient of Variation % 13.8 % (11.5-15.5); Red Blood Count 4.08 m/uL (4.00-5.20); White Blood Count* 5.99 K/uL (4.50-11.00)
[2024-04-17 11:15] LABS: Slide Review Reflex No
[2024-04-17 12:45] LABS: Chloride* 110 mmol/L (96-114)
[2024-04-17 12:46] LABS: Sodium* 140 mmol/L (135-149)
[2024-04-17 12:48] LABS: Alkaline Phosphatase* 72 U/L (40-150); Anion Gap 6 mEq/L (7-15); Aspartate Amino Transferase* 23 U/L (12-35); Bilirubin Total* 0.4 mg/dL (0.1-1.5); Blood Urea Nitrogen* 13 mg/dL (7-30); Carbon Dioxide* 24 mmol/L (20-32); Creatinine* 0.7 mg/dL (0.5-1.5); Estimated Glomerular Filt Rate 86 ml/min; Total Protein* 7.9 g/dL (6.0-8.3)
[2024-04-17 12:49] LABS: Alanine Aminotransferase* 15 U/L (4-35); Calcium* 8.9 mg/dL (8.4-10.6); Glucose* 111 mg/dL (60-115)
--- NOTE | 2024-04-17 13:49 | PC.NURSE ---
Addendum entered by Poppy Wright RN 04/17/24 13:53: Pt is aware that MM labs will be discussed at MD appt on 05/14. Original Note: Called Nehemiah with CBC/CMP results. Pt will start her next cycle of Revlimid on 04/19/2024. Pt inquired about MM labs, those are pending that this time. Pt verbalized understanding. She will see MD in May.
[2024-04-20 11:50] LABS: Albumin 3.97 g/dL (3.75-5.01); Alpha 1 Globulin 0.24 g/dL (0.19-0.46); Alpha 2 Globulin 0.77 g/dL (0.48-1.05); Immunofixation IFE Done; Immunoglobulin A 81 mg/dL (68-408); Immunoglobulin G 1502 mg/dL (768-1632); Immunoglobulin M 29 mg/dL (35-263); Kappa/Lambda Light Chain Ratio 4.85 (0.26-1.65); Lambda Qnt Free Light Chains 8.06 mg/L (5.71-26.30); Monoclonal Protein 1.49 g/dL (<=0.00); Total Protein, Serum 7.4 g/dL (6.3-8.2)
[2024-05-15 09:21] LABS: Basophils Absolute Auto 0.03 K/uL (0.00-0.30); Basophils Percent Auto 0.5 % (0.0-3.0); Eosinophils Absolute Auto 0.24 K/uL (0.00-0.50); Eosinophils Percent Auto 4.1 % (0.0-7.0); Hematocrit 37.5 % (33.0-51.0); Hemoglobin* 11.6 gm/dL (12.0-16.0); Immature Granulocytes Abs Auto 0.01 K/uL (0.00-0.30); Immature Granulocytes Pct Auto 0.2 %; Lymphocytes Absolute Auto 1.34 K/uL (0.90-2.90); Lymphocytes Percent Auto 23.1 % (20-44); Mean Corpuscular HGB Conc 31 gm/dL (32-36); Mean Corpuscular Hemoglobin 31 pg (26-34); Mean Corpuscular Volume 100 fL (80-100); Monocytes Percent Auto 19.3 % (0.0-11.0); Neutrophils Absolute Auto 3.07 K/uL (1.7-7.0); Neutrophils Percent Auto 52.8 % (42.0-72.0); Platelet Count* 281 K/uL (140-440); RDW Coefficient of Variation % 14.4 % (11.5-15.5); Red Blood Count 3.77 m/uL (4.00-5.20); White Blood Count* 5.81 K/uL (4.50-11.00)
[2024-05-15 09:26] LABS: Slide Review Reflex No
[2024-05-15 09:40] LABS: Chloride* 109 mmol/L (96-114); Sodium* 138 mmol/L (135-149)
[2024-05-15 09:41] LABS: Potassium* 3.8 mmol/L (3.6-5.1)
[2024-05-15 09:43] LABS: Alkaline Phosphatase* 70 U/L (40-150); Anion Gap 3 mEq/L (7-15); Aspartate Amino Transferase* 24 U/L (12-35); Bilirubin Total* 0.5 mg/dL (0.1-1.5); Blood Urea Nitrogen* 13 mg/dL (7-30); Carbon Dioxide* 26 mmol/L (20-32); Creatinine* 0.8 mg/dL (0.5-1.5); Estimated Glomerular Filt Rate 73 ml/min; Glucose* 88 mg/dL (60-115); Total Protein* 8.1 g/dL (6.0-8.3)
[2024-05-15 09:44] LABS: Alanine Aminotransferase* 17 U/L (4-35)
[2024-05-18 12:37] LABS: Albumin 3.86 g/dL (3.75-5.01); Alpha 1 Globulin 0.27 g/dL (0.19-0.46); Alpha 2 Globulin 0.75 g/dL (0.48-1.05); Immunofixation IFE Done; Immunoglobulin A 93 mg/dL (68-408); Immunoglobulin G 2134 mg/dL (768-1632); Immunoglobulin M 42 mg/dL (35-263); Kappa Qnt Free Light Chains 46.79 mg/L (3.30-19.40); Kappa/Lambda Light Chain Ratio 3.98 (0.26-1.65); Lambda Qnt Free Light Chains 11.77 mg/L (5.71-26.30); Monoclonal Protein 1.59 g/dL (<=0.00); Total Protein, Serum 7.4 g/dL (6.3-8.2)
== END 2024-06-08 23:59 | disposition home or self-care (01) ==
LOC: CCIC 13:30
PROVIDERS: Clinical Nurse Specialist; PCP Internal Medicine; Referring Provider Family Medicine; Visit Provider Internal Medicine Hematology & Oncology
DX: C90.00 Multiple myeloma not having achieved remission (principal); Z79.82 Long term (current) use of aspirin
CPT/HCPCS: 36415; 80053; 82784; 83520; 84155; 84165; 85025; 86334; 99213; 99214; G0463

== ENCOUNTER 2024-12-07 13:30 | Outpatient (RCR) | payer MEDICARE, BC, SELFPAY ==
[2024-06-11 09:37] LABS: Basophils Absolute Auto 0.03 K/uL (0.00-0.30); Basophils Percent Auto 0.5 % (0.0-3.0); Eosinophils Absolute Auto 0.27 K/uL (0.00-0.50); Eosinophils Percent Auto 4.5 % (0.0-7.0); Hematocrit 38.2 % (33.0-51.0); Hemoglobin* 11.8 gm/dL (12.0-16.0); Immature Granulocytes Abs Auto 0.03 K/uL (0.00-0.30); Immature Granulocytes Pct Auto 0.5 %; Lymphocytes Absolute Auto 1.51 K/uL (0.90-2.90); Lymphocytes Percent Auto 25.1 % (20-44); Mean Corpuscular HGB Conc 31 gm/dL (32-36); Mean Corpuscular Hemoglobin 31 pg (26-34); Mean Corpuscular Volume 100 fL (80-100); Monocytes Percent Auto 16.5 % (0.0-11.0); Neutrophils Absolute Auto 3.18 K/uL (1.7-7.0); Neutrophils Percent Auto 52.9 % (42.0-72.0); Platelet Count* 273 K/uL (140-440); RDW Coefficient of Variation % 14.6 % (11.5-15.5); Red Blood Count 3.82 m/uL (4.00-5.20); White Blood Count* 6.01 K/uL (4.50-11.00)
[2024-06-11 09:38] LABS: Slide Review Reflex No
[2024-06-11 09:55] LABS: Albumin* 4.1 g/dL (3.3-5.0); Chloride* 108 mmol/L (96-114); Potassium* 3.5 mmol/L (3.6-5.1); Sodium* 138 mmol/L (135-149)
[2024-06-11 09:57] LABS: Aspartate Amino Transferase* 23 U/L (12-35); Bilirubin Total* 0.3 mg/dL (0.1-1.5); Carbon Dioxide* 26 mmol/L (20-32); Creatinine* 0.8 mg/dL (0.5-1.5); Estimated Glomerular Filt Rate 73 ml/min; Total Protein* 8.4 g/dL (6.0-8.3)
[2024-06-11 09:58] LABS: Alanine Aminotransferase* 15 U/L (4-35); Alkaline Phosphatase* 63 U/L (40-150); Anion Gap 4 mEq/L (7-15); Blood Urea Nitrogen* 14 mg/dL (7-30); Calcium* 8.9 mg/dL (8.4-10.6); Glucose* 88 mg/dL (60-115)
--- NOTE | 2024-06-24 15:33 | ONC.NURNOTE ---
Addendum entered by Brissa Dong RN 06/25/24 08:52: Drywall Contractor called patient and she notes that her biggest concern is that she is very active in the community and wants to prevent the diarrhea from occurring when she has things planned. She was told that with it being on revlamid this occurs. She was told to keep a food journal to try to determine which foods are triggers for her, and to try to avoid these especially when she has plans in the future. She will attempt to do this. She was further notified that a prescription for immodium was sent to [facility] so that she is able to use the immodium as needed per bottle instructions. Patient will call with any further issues. Original Note: Patient called asking for us to send an order that it was okay to take Imodium as the nurses at [facility] need this. Called [facility] and they asked for instructions on Imodium so they could keep in her records. [facility] contacted and a new order was placed and faxed over to [facility] [employer]. Patient wanted to speak to Navigator on how to manage diarrhea with having Multiple Myeloma. Said she hasn't been bothered by it in the past, but she is now interested in getting more information on how to control diarrhea. Navigator is gone for a week. Left message with ticket sales supervisor to call patient tomorrow to address this.
[2024-07-08 09:41] LABS: Basophils Absolute Auto 0.05 K/uL (0.00-0.30); Basophils Percent Auto 0.8 % (0.0-3.0); Eosinophils Absolute Auto 0.31 K/uL (0.00-0.50); Hemoglobin* 11.7 gm/dL (12.0-16.0); Immature Granulocytes Abs Auto 0.03 K/uL (0.00-0.30); Immature Granulocytes Pct Auto 0.5 %; Lymphocytes Absolute Auto 1.31 K/uL (0.90-2.90); Lymphocytes Percent Auto 21.3 % (20-44); Mean Corpuscular HGB Conc 32 gm/dL (32-36); Mean Corpuscular Hemoglobin 31 pg (26-34); Mean Corpuscular Volume 99 fL (80-100); Monocytes Percent Auto 20.1 % (0.0-11.0); Neutrophils Absolute Auto 3.22 K/uL (1.7-7.0); Neutrophils Percent Auto 52.3 % (42.0-72.0); Platelet Count* 266 K/uL (140-440); RDW Coefficient of Variation % 14.6 % (11.5-15.5); Red Blood Count 3.73 m/uL (4.00-5.20); White Blood Count* 6.16 K/uL (4.50-11.00)
[2024-07-08 09:44] LABS: Slide Review Reflex No
[2024-07-08 10:15] LABS: Albumin* 3.9 g/dL (3.3-5.0); Chloride* 105 mmol/L (96-114); Potassium* 3.5 mmol/L (3.6-5.1); Sodium* 136 mmol/L (135-149)
[2024-07-08 10:18] LABS: Alanine Aminotransferase* 17 U/L (4-35); Alkaline Phosphatase* 67 U/L (40-150); Anion Gap 5 mEq/L (7-15); Aspartate Amino Transferase* 24 U/L (12-35); Bilirubin Total* 0.6 mg/dL (0.1-1.5); Blood Urea Nitrogen* 11 mg/dL (7-30); Carbon Dioxide* 26 mmol/L (20-32); Creatinine* 0.8 mg/dL (0.5-1.5); Estimated Glomerular Filt Rate 73 ml/min; Glucose* 89 mg/dL (60-115); Total Protein* 8.1 g/dL (6.0-8.3)
--- NOTE | 2024-07-08 14:21 | ONC.NURNOTE ---
Lab results reviewed by RN as stable and within parameters to start her lenalidomide noted potassium as low normal- Nehemiah notes that she had been on potassium per Dr Lei and it was recently discontinued - informed patient that she needs to connect with Dr Lei for refills of potassium -the intermittent diarrhea present as a side effect of lenalidomide is ongoing -reviewed dosing with Imodium- take 2 after first loose/watery stool, may repeat if have another loose stool up to 4/day -instructed to call us if needing more than 4 Imodium/day Nehemiah reports intermittent diarrhea- some days none- usually one dose of Imodium takes care of the problem for the day- some days she has freq stools throughout the day this is impacting her QOL and Sukhdeep's sense of experiencing signs of physical decline- including fatigue and insomnia Nehemiah talked about her strong intellectual health that is outperforming her physical health and she reports agitation with this imbalance Handouts given on sleep hygiene and discussed option of low dose melatonin ( 2mg) Written instructions on Imodium Names of counselors in [facility] provided Supportive listening
[2024-08-06 15:38] LABS: Basophils Absolute Auto 0.05 K/uL (0.00-0.30); Basophils Percent Auto 0.8 % (0.0-3.0); Eosinophils Absolute Auto 0.21 K/uL (0.00-0.50); Eosinophils Percent Auto 3.2 % (0.0-7.0); Hematocrit 37.3 % (33.0-51.0); Hemoglobin* 11.5 gm/dL (12.0-16.0); Immature Granulocytes Abs Auto 0.03 K/uL (0.00-0.30); Immature Granulocytes Pct Auto 0.5 %; Lymphocytes Absolute Auto 1.73 K/uL (0.90-2.90); Lymphocytes Percent Auto 26.1 % (20-44); Mean Corpuscular HGB Conc 31 gm/dL (32-36); Mean Corpuscular Hemoglobin 31 pg (26-34); Mean Corpuscular Volume 100 fL (80-100); Monocytes Percent Auto 19.3 % (0.0-11.0); Neutrophils Absolute Auto 3.33 K/uL (1.7-7.0); Neutrophils Percent Auto 50.1 % (42.0-72.0); Platelet Count* 317 K/uL (140-440); RDW Coefficient of Variation % 13.6 % (11.5-15.5); Red Blood Count 3.75 m/uL (4.00-5.20); White Blood Count* 6.63 K/uL (4.50-11.00)
[2024-08-06 15:39] LABS: Slide Review Reflex No
[2024-08-06 15:50] LABS: Chloride* 104 mmol/L (96-114); Sodium* 136 mmol/L (135-149)
[2024-08-06 15:51] LABS: Potassium* 3.4 mmol/L (3.6-5.1)
[2024-08-06 15:53] LABS: Alanine Aminotransferase* 14 U/L (4-35); Alkaline Phosphatase* 72 U/L (40-150); Anion Gap 6 mEq/L (7-15); Aspartate Amino Transferase* 20 U/L (12-35); Bilirubin Total* 0.1 mg/dL (0.1-1.5); Blood Urea Nitrogen* 15 mg/dL (7-30); Carbon Dioxide* 26 mmol/L (20-32); Creatinine* 0.8 mg/dL (0.5-1.5); Estimated Glomerular Filt Rate 73 ml/min; Glucose* 111 mg/dL (60-115)
[2024-08-06 15:54] LABS: Calcium* 8.7 mg/dL (8.4-10.6)
--- NOTE | 2024-08-07 14:08 | ONC.NURNOTE ---
labs reviewed by Deirdre Rodriguez APRN- as with in patient parameters to start lenalidomide discussed lower potassium reports that diarrhea is well controlled with imodium occasionally during the week- patient states every few days she will take 1 imodium discussed foods that contain potassium Nehemiah has an appt with Dr Lei 08/17/24 to discuss medications- she has been off her potassium
[2024-09-02 09:16] LABS: Basophils Absolute Auto 0.04 K/uL (0.00-0.30); Basophils Percent Auto 0.7 % (0.0-3.0); Eosinophils Absolute Auto 0.22 K/uL (0.00-0.50); Eosinophils Percent Auto 3.6 % (0.0-7.0); Hematocrit 39.8 % (33.0-51.0); Hemoglobin* 12.3 gm/dL (12.0-16.0); Immature Granulocytes Abs Auto 0.02 K/uL (0.00-0.30); Immature Granulocytes Pct Auto 0.3 %; Lymphocytes Absolute Auto 1.42 K/uL (0.90-2.90); Lymphocytes Percent Auto 23.4 % (20-44); Mean Corpuscular HGB Conc 31 gm/dL (32-36); Mean Corpuscular Hemoglobin 31 pg (26-34); Mean Corpuscular Volume 99 fL (80-100); Monocytes Percent Auto 19.6 % (0.0-11.0); Neutrophils Absolute Auto 3.18 K/uL (1.7-7.0); Neutrophils Percent Auto 52.4 % (42.0-72.0); Platelet Count* 326 K/uL (140-440); RDW Coefficient of Variation % 14.5 % (11.5-15.5); Red Blood Count 4.02 m/uL (4.00-5.20); White Blood Count* 6.07 K/uL (4.50-11.00)
[2024-09-02 09:18] LABS: Slide Review Reflex No
[2024-09-02 09:40] LABS: Chloride* 107 mmol/L (96-114); Potassium* 3.5 mmol/L (3.6-5.1); Sodium* 138 mmol/L (135-149)
[2024-09-02 09:42] LABS: Bilirubin Total* 0.3 mg/dL (0.1-1.5); Creatinine* 0.9 mg/dL (0.5-1.5); Estimated Glomerular Filt Rate 63 ml/min
[2024-09-02 09:43] LABS: Alanine Aminotransferase* 19 U/L (4-35); Alkaline Phosphatase* 66 U/L (40-150); Anion Gap 8 mEq/L (7-15); Aspartate Amino Transferase* 21 U/L (12-35); Blood Urea Nitrogen* 13 mg/dL (7-30); Calcium* 9.1 mg/dL (8.4-10.6); Carbon Dioxide* 23 mmol/L (20-32); Glucose* 94 mg/dL (60-115); Total Protein* 9.6 g/dL (6.0-8.3)
--- NOTE | 2024-09-04 09:03 | ONC.NURNOTE ---
CBC CMP noted as within parameters to start lenalidomide results called to Nehemiah and she will start on Saturday Dr Boykin appt 09/17/24
[2024-09-06 01:07] LABS: Albumin 4.08 g/dL (3.75-5.01); Alpha 2 Globulin 0.95 g/dL (0.48-1.05); Immunofixation IFE Done; Immunoglobulin A 69 mg/dL (68-408); Immunoglobulin G 3967 mg/dL (768-1632); Immunoglobulin M 31 mg/dL (35-263); Kappa Qnt Free Light Chains 100.59 mg/L (3.30-19.40); Kappa/Lambda Light Chain Ratio 10.58 (0.26-1.65); Lambda Qnt Free Light Chains 9.51 mg/L (5.71-26.30); Monoclonal Protein 2.86 g/dL (<=0.00); Total Protein, Serum 9.2 g/dL (6.3-8.2)
[2024-10-05 14:12] LABS: Basophils Absolute Auto 0.04 K/uL (0.00-0.30); Basophils Percent Auto 0.5 % (0.0-3.0); Eosinophils Absolute Auto 0.03 K/uL (0.00-0.50); Eosinophils Percent Auto 0.4 % (0.0-7.0); Hematocrit 35.8 % (33.0-51.0); Hemoglobin* 11.2 gm/dL (12.0-16.0); Immature Granulocytes Abs Auto 0.02 K/uL (0.00-0.30); Immature Granulocytes Pct Auto 0.3 %; Lymphocytes Percent Auto 17.9 % (20-44); Mean Corpuscular HGB Conc 31 gm/dL (32-36); Mean Corpuscular Hemoglobin 29 pg (26-34); Mean Corpuscular Volume 94 fL (80-100); Monocytes Percent Auto 25.2 % (0.0-11.0); Neutrophils Percent Auto 55.7 % (42.0-72.0); Platelet Count* 364 K/uL (140-440); RDW Coefficient of Variation % 14.5 % (11.5-15.5); Red Blood Count 3.82 m/uL (4.00-5.20); White Blood Count* 7.54 K/uL (4.50-11.00)
[2024-10-05 14:14] LABS: Albumin* 3.9 g/dL (3.3-5.0); Chloride* 109 mmol/L (96-114); Sodium* 138 mmol/L (135-149)
[2024-10-05 14:15] LABS: Potassium* 3.4 mmol/L (3.6-5.1)
[2024-10-05 14:16] LABS: Slide Review Reflex No
[2024-10-05 14:17] LABS: Alkaline Phosphatase* 79 U/L (40-150); Anion Gap 6 mEq/L (7-15); Aspartate Amino Transferase* 22 U/L (12-35); Bilirubin Total* 0.3 mg/dL (0.1-1.5); Blood Urea Nitrogen* 17 mg/dL (7-30); Carbon Dioxide* 23 mmol/L (20-32); Creatinine* 0.9 mg/dL (0.5-1.5); Estimated Glomerular Filt Rate 63 ml/min; Total Protein* 9.5 g/dL (6.0-8.3)
[2024-10-05 14:18] LABS: Alanine Aminotransferase* 17 U/L (4-35); Calcium* 8.7 mg/dL (8.4-10.6); Glucose* 113 mg/dL (60-115)
--- NOTE | 2024-10-05 14:44 | ONC.NURNOTE ---
labs called to Nehemiah as stable and within parameters to start lenalidomide discussed possiblitiy of increase in diarrhea frequency with dose increase- patient uses imodium prn to control diarrhea
--- NOTE | 2024-10-12 14:31 | ONC.NURNOTE ---
call requesting calendars with next appts be mailed to her wanted us to know that she feels really well with the dose increase on lenalidomide no increase in diarrhea- as a matter of notation, Nehemiah says she has less diarrhea this past week since starting the new dose of lenalidomide
--- NOTE | 2024-10-30 15:18 | ONC.NURNOTE ---
Patient called to report that she has spent hours on the phone with [facility] and is not able to get her lenalidomide. Brake Liner called on patients behalf and spent over 45 min bi solutions architect with [facility]: due to a lenalidomide shortage they can not dispense the drug as ordered And Nehemiah's insurance company is rejecting Revlimid as nonformulary bond writer requested aiden [facility] will not call the insurance to get an override [facility] provided a phone number for the PA dept- but it was not a correct number to address medication PA Brake Liner had followed up with Nehemiah and her Son Johnie with this information Next Steps: This bond writer recommends talking to pharmacy at [facility] to have them request a formulary override from the insurance company for brand name if the generic is not available Son will try to get in touch with the insurance company for a formulary override as well
--- NOTE | 2024-11-02 11:54 | ONC.NURNOTE ---
Addendum entered by So Monroe RN 11/04/24 12:14: Nehemiah had not yet heard from [facility] to schedule the delivery additional call to [facility]- and they did run the Revlimid through and it was approved with 0 $ copay, while television writer on the phone, [facility] did reach out to patient to set up delivery of Revlimid Addendum entered by So Monroe RN 11/03/24 14:53: television writer spoke with [employer] (this is patients Part D coverage-authorizations)about the denial of Revlimid and low availability of lenalidomide # [phone] Agent ID [id number] Vasu B. According to [employer] patients Part D- no PA is required- currently active PA for Revlimid- as Revlimid is on the formulary for patient (but not lenalidomide) it appears that [facility] has been running through as lenalidomide not Revlimid- it they run the Rx as Revlimid the insurance will pay this is the exact opposite information that [facility] told this television writer on Monday 10/30 and Thursday 11/02 patient was called with update- that [facility] should be calling today or tomorrow to set up delivery- informed patient that she should call clinic when she hears from [facility] will need lab appt Reference # for [facility]/Pharmacy calls is [id number] Original Note: Inside Sales Specialist phoned [facility] today- spoke with pharmacist Agustina two questions to resolve -will [facility] request the necessary override from insurance to dispense Revlimid instread of lenalidomide- since lenalidomide is not available as a generic-there is a shortage -Will to copay katy cover the $2000 for brand name- -can [facility] dispense without a PA is the katy covers the initial $2000? -if provider office needs to call for an override can they provide the correct phone number to call for oral medication PA [facility] to call this television writer back with following info
--- NOTE | 2024-11-05 16:03 | ONC.NURNOTE ---
60 minutes spent either on hold or speaking with the [facility] Resolution Manager Contact Today [employer] is unable to verify auth #'s so this is holding up dispensing Also told that a PA is needed for Revlimid - even though [employer] has said that no PA is needed video game script writer waiting for PA Keycode to be faxed and will complete a PA patient aware of the latest barriers to dispensing Revlimid
[2024-11-09 13:09] LABS: Basophils Absolute Auto 0.04 K/uL (0.00-0.30); Basophils Percent Auto 0.7 % (0.0-3.0); Eosinophils Absolute Auto 0.04 K/uL (0.00-0.50); Eosinophils Percent Auto 0.7 % (0.0-7.0); Hemoglobin* 10.3 gm/dL (12.0-16.0); Immature Granulocytes Abs Auto 0.01 K/uL (0.00-0.30); Immature Granulocytes Pct Auto 0.2 %; Lymphocytes Absolute Auto 1.27 K/uL (0.90-2.90); Lymphocytes Percent Auto 21.6 % (20-44); Mean Corpuscular HGB Conc 31 gm/dL (32-36); Mean Corpuscular Hemoglobin 30 pg (26-34); Mean Corpuscular Volume 96 fL (80-100); Monocytes Percent Auto 15.4 % (0.0-11.0); Neutrophils Absolute Auto 3.62 K/uL (1.7-7.0); Neutrophils Percent Auto 61.4 % (42.0-72.0); Platelet Count* 343 K/uL (140-440); RDW Coefficient of Variation % 17.2 % (11.5-15.5); Red Blood Count 3.44 m/uL (4.00-5.20); White Blood Count* 5.89 K/uL (4.50-11.00)
[2024-11-09 13:23] LABS: Albumin* 3.8 g/dL (3.3-5.0); Chloride* 110 mmol/L (96-114); Potassium* 3.7 mmol/L (3.6-5.1); Sodium* 138 mmol/L (135-149)
[2024-11-09 13:26] LABS: Alanine Aminotransferase* 18 U/L (4-35); Alkaline Phosphatase* 64 U/L (40-150); Anion Gap 6 mEq/L (7-15); Aspartate Amino Transferase* 24 U/L (12-35); Bilirubin Total* 0.3 mg/dL (0.1-1.5); Blood Urea Nitrogen* 19 mg/dL (7-30); Carbon Dioxide* 22 mmol/L (20-32); Estimated Glomerular Filt Rate 56 ml/min; Glucose* 124 mg/dL (60-115); Total Protein* 10.3 g/dL (6.0-8.3)
[2024-11-09 13:27] LABS: Calcium* 8.5 mg/dL (8.4-10.6)
[2024-11-09 13:30] LABS: Slide Review Reflex No
--- NOTE | 2024-11-10 09:33 | ONC.NURNOTE ---
Addendum entered by So Monroe RN 11/10/24 10:56: Nehemiah phoned back and states she received a call from [employer] stating she needs to enroll in the medicare prepayment plan contract writer called [facility] for clarification of this most recent call: patients copay is $0 and therefore has no need to enroll in the payment plan- this was not explained to the patient by this contract writer confirmed shipment of drug today for delivery tomorrow Nehemiah notified Original Note: Nehemiah reports that she spent over 2 hours on the phone with [employer] yesterday, speaking with 5 different people and she thinks they will be shipping the Revlimid out today. yesterday this contract writer spent over 1 hr speaking with insurance company and communication of additional information to [employer]. PA was approved for Revlimid, but [employer] was still receiving message that claim was denied. According the [employer] there should be no further stops on medication.
--- NOTE | 2024-11-11 11:59 | ONC.NURNOTE ---
PA Revlimid 10/07/24-11/09/25 [id number] [employer] [phone] [facility] [employer] [phone] fax [phone]
--- NOTE | 2024-11-16 10:27 | ONC.NURNOTE ---
Nehemiah called with concerns about an episode of epitaxis this am there were some clots present, was controlled after a few minutes, by applying cold compress to nose patient has not had previous nose bleeds platelets noted as stable recommended humidified air and a dab of vaseline just inside nostrils the air is very dry right now patient is concerned this is an adverse side effect of lenalidomide- she is currently feeling very well, and has been active in her new residence, informed Nehemiah to call back if she has another episode of nose bleed
--- NOTE | 2024-12-01 11:42 | ONC.NURNOTE ---
Revlimid RX transferred to [facility] $0 copay They will call patient in the next day or two to set up delivery for start date due on 12/08/24 Message left with Nehemiah
[2024-12-07 10:54] LABS: Basophils Percent Auto 0.6 % (0.0-3.0); Eosinophils Percent Auto 0.3 % (0.0-7.0); Hematocrit 36.9 % (33.0-51.0); Hemoglobin* 11.6 gm/dL (12.0-16.0); Immature Granulocytes Pct Auto 0.3 %; Lymphocytes Percent Auto 12.3 % (20-44); Mean Corpuscular HGB Conc 31 gm/dL (32-36); Mean Corpuscular Hemoglobin 31 pg (26-34); Mean Corpuscular Volume 100 fL (80-100); Monocytes Percent Auto 3.2 % (0.0-11.0); Neutrophils Percent Auto 83.3 % (42.0-72.0); Platelet Count* 293 K/uL (140-440); RDW Coefficient of Variation % 17.6 % (11.5-15.5); Red Blood Count 3.69 m/uL (4.00-5.20); White Blood Count* 3.16 K/uL (4.50-11.00)
[2024-12-07 11:07] LABS: Slide Review Reflex No
[2024-12-07 11:08] LABS: Chloride* 107 mmol/L (96-114); Potassium* 3.9 mmol/L (3.6-5.1); Sodium* 137 mmol/L (135-149)
[2024-12-07 11:10] LABS: Blood Urea Nitrogen* 18 mg/dL (7-30); Creatinine* 0.9 mg/dL (0.5-1.5); Estimated Glomerular Filt Rate 63 ml/min
[2024-12-07 11:11] LABS: Alanine Aminotransferase* 17 U/L (4-35); Alkaline Phosphatase* 67 U/L (40-150); Anion Gap 6 mEq/L (7-15); Aspartate Amino Transferase* 24 U/L (12-35); Bilirubin Total* 0.4 mg/dL (0.1-1.5); Calcium* 8.7 mg/dL (8.4-10.6); Carbon Dioxide* 24 mmol/L (20-32); Glucose* 109 mg/dL (60-115); Total Protein* 10.2 g/dL (6.0-8.3)
[2024-12-09 23:41] LABS: Albumin 4.32 g/dL (3.75-5.01); Alpha 1 Globulin 0.33 g/dL (0.19-0.46); Alpha 2 Globulin 0.89 g/dL (0.48-1.05); Immunofixation IFE Done; Immunoglobulin A 45 mg/dL (68-408); Immunoglobulin G 2148 mg/dL (768-1632); Immunoglobulin M 22 mg/dL (35-263); Kappa Qnt Free Light Chains 86.69 mg/L (3.30-19.40); Kappa/Lambda Light Chain Ratio 11.17 (0.26-1.65); Lambda Qnt Free Light Chains 7.76 mg/L (5.71-26.30); Monoclonal Protein 3.85 g/dL (<=0.00); Total Protein, Serum 10.4 g/dL (6.3-8.2)
== END 2024-12-08 23:59 | disposition home or self-care (01) ==
LOC: CCIC 13:30
PROVIDERS: Clinical Nurse Specialist; PCP Internal Medicine; Referring Provider Family Medicine; Visit Provider Internal Medicine Hematology & Oncology
DX: C90.00 Multiple myeloma not having achieved remission (principal)
CPT/HCPCS: 36415; 80053; 82784; 83520; 84155; 84165; 85025; 86334; 99213; 99214; G0463

== ENCOUNTER 2025-03-04 11:34 | Outpatient (CLI) | payer MEDICARE, BC, SELFPAY ==
--- NOTE | 2025-03-04 11:47 | P.ANES_ITS ---
Anesthesia Charges Start Date/Time Anesthesia Start Date: 03/04/25 Stop Date/Time Anesthesia Stop Date: 03/04/25 Summary Extremes of Age - Over 70 or under 1: SUSI Coding CPT Codes CPT Codes: ANESTH BONE ASPIRATE/BX - 17989 ([id number]) QK - PROTEIN SCIENTIST 2-4 CNCRNT ANES PROC, QX - MATERIAL CONTROLLER SVC W/ MD MED DIRECTION, P2 - PATIENT W/MILD SYST DISEASE Additional Codes: Summary - Extremes of Age - Over 70 or under 1: SUSI ([id number])
--- NOTE | 2025-03-04 11:47 | W.ANESCHARGE ---
Anesthesia Charges Start Date/Time Anesthesia Start Date: 03/04/25 Stop Date/Time Anesthesia Stop Date: 03/04/25 Summary Extremes of Age - Over 70 or under 1: SUSI Coding CPT Codes CPT Codes: ANESTH BONE ASPIRATE/BX - 48824 ([id number]) QK - WAFER CUTTER 2-4 CNCRNT ANES PROC, QX - SENIOR HR MANAGER SVC W/ MD MED DIRECTION, P2 - PATIENT W/MILD SYST DISEASE Additional Codes: Summary - Extremes of Age - Over 70 or under 1: SUSI ([id number])
[2025-03-04 12:02] VITALS: BP 185/104; PULSE 111; RESP 16; TEMP 36.6; O2SAT 95
[2025-03-04 12:04] VITALS: BMI 23.6
--- NOTE | 2025-03-04 12:14 | PC.NURSE ---
Patient states she had the procedure 3 years ago without sedation and it went ok. Patient is wondering if she can have it done without sedation today. She would like to go out for lunch with her friend afterwards. Patient states she is anxious, BP elevated. Engineering Supervisor discussed risks and benefits. Patient verbalized understanding and would like to proceed without sedation. Dr. Mac with Anesthesia notified.
[2025-03-04 12:20] VITALS: BP 157/96; PULSE 106; RESP 16; O2SAT 95
--- NOTE | 2025-03-04 12:45 | PC.NURSE ---
1220: Patient gave consent for Student NUrseRoseanna to observe procedure.
[2025-03-04 12:56] VITALS: BP 167/99; PULSE 91; RESP 16; O2SAT 93
[2025-03-04 13:08] VITALS: BP 166/85; PULSE 86; RESP 16; TEMP 37.1; O2SAT 94
[2025-03-04 13:12] LABS: Basophils Percent Auto 0.3 % (0.0-3.0); Eosinophils Percent Auto 0.7 % (0.0-7.0); Hematocrit* 31.2 % (33.0-51.0); Hemoglobin* 9.6 gm/dL (12.0-16.0); Immature Reticulocyte Fraction 25.6 % (3.0-15.9); Lymphocytes Percent Auto 21.9 % (20-44); Mean Corpuscular HGB Conc 31 gm/dL (32-36); Mean Corpuscular Hemoglobin 31 pg (26-34); Mean Corpuscular Volume 102 fL (80-100); Monocytes Percent Auto 14.1 % (0.0-11.0); Platelet Count* 281 K/uL (140-440); RDW Coefficient of Variation % 16.9 % (11.5-15.5); Red Blood Count* 3.07 m/uL (4.00-5.20); Reticulocyte Hemoglobin Equivi 34.1 pg (29.0-35.0); Reticulocyte Percent 1.9 % (0.5-2.0); Reticulocytes Absolute 0.06 # (0.03-0.08); White Blood Count* 3.06 K/uL (4.50-11.00)
[2025-03-04 13:17] LABS: Slide Review Reflex No
[2025-03-04 13:19] VITALS: BP 160/85; PULSE 92; RESP 16; O2SAT 94
[2025-03-04 13:24] LABS: Albumin* 3.7 g/dL (3.3-5.0); Chloride* 109 mmol/L (96-114); Potassium* 3.7 mmol/L (3.6-5.1); Sodium* 137 mmol/L (135-149)
[2025-03-04 13:27] LABS: Alanine Aminotransferase* 20 U/L (4-35); Alkaline Phosphatase* 72 U/L (40-150); Anion Gap 5 mEq/L (7-15); Aspartate Amino Transferase* 35 U/L (12-35); Bilirubin Total* 0.5 mg/dL (0.1-1.5); Blood Urea Nitrogen* 17 mg/dL (7-30); Carbon Dioxide* 23 mmol/L (20-32); Creatinine* 1.1 mg/dL (0.5-1.5); Est. Creatinine Clearance* 30.89; Estimated Glomerular Filt Rate 50 ml/min
[2025-03-04 13:28] LABS: Calcium* 8.6 mg/dL (8.4-10.6); Glucose* 107 mg/dL (60-115)
[2025-03-04 13:43] LABS: Total Protein* 13.3 g/dL (6.0-8.3)
== END 2025-03-04 13:36 | disposition home or self-care (01) ==
LOC: OP CLINIC 11:35
PROVIDERS: PCP Internal Medicine; Visit Provider Internal Medicine Hematology & Oncology
DX: C90.00 Multiple myeloma not having achieved remission (principal)
CPT/HCPCS: 36415; 38222; 80053; 85025; 85045; 88184; 88185; 88237; 88264; 88271; 88275; 88299; 88305; 88311; 88313; 88341; 88342; 88360; J1644; J2003

== ENCOUNTER 2025-03-18 14:11 | Outpatient (CLI) | payer MEDICARE, BC, SELFPAY ==
--- NOTE | 2025-03-18 14:30 | CRLHL7_ITS ---
For Patients: As a result of the 21st Century Cures Act, medical imaging exams and procedure reports are released immediately into your electronic medical record. You may view this report before your referring provider. If you have questions, please contact your health care provider. Indication: Multiple myeloma Technique: Patient was injected in the left antecubital vein with 10.7 mCi FDG intravenously, with PET-CT imaging performed from the skull vertex to feet [address] images were obtained for attenuation correction and localization, and do not replace a diagnostic quality examination. Blood glucose: 98 mg/dL. Comparison: PET-CT performed 07/14/2021 Findings: Portions of the examination are motion degraded. Liver background: SUVMean 2.5 Mediastinal blood pool background: SUVMean 2.1 Head and Neck Brain: No abnormal foci of uptake appreciated. Sinuses, orbits, mastoids: No significant abnormality or abnormal uptake appreciated. Oral cavity, pharynx, larynx: No significant abnormality or abnormal uptake appreciated. Lymph nodes: No enlarged or avid nodes appreciated. Thyroid: Grossly unremarkable. Chest Lungs: No abnormal foci of uptake appreciated. No concerning nodule or mass. No consolidation. No pneumothorax. No effusion. Mediastinum: Calcified atherosclerosis. Cardiomegaly. Lymph nodes: No enlarged or avid nodes appreciated. Abdomen and Pelvis Hepatobiliary: No abnormal foci of uptake. No significant abnormality appreciated. Spleen: Unremarkable. Pancreas: Unremarkable. Adrenal glands: Unremarkable. Kidneys: Parenchyma appears grossly unremarkable with no abnormal uptake appreciated. No calculi. No hydronephrosis. Bowel: Diffuse bowel uptake. No focal masslike lesion appreciated. Vascular: Calcified atherosclerosis. Lymph nodes: No enlarged or avid nodes appreciated. Peritoneum: No avid mass. No free air. No free fluid. : No abnormal uptake appreciated. Soft tissues: No avid soft tissue lesion appreciated. Bones: Multiple chronic fractures and osteoporotic appearing bones noted. Multiple osseous lesions are demonstrated. These appear progressed compared to prior examination. Reference lesions include a new area of increased uptake within the right sacrum with SUV max 11.1 and new and increased areas of uptake within the left anterior 4th rib with SUV max measuring up to 15.3, previously 6.1. Impression: Widespread metabolically active osseous lesions compatible with multiple myeloma. Compared to examination from 07/14/2021, this appears progressed in number and FDG avidity of lesions. No evidence of lymphatic/visceral soft tissue involvement. Dictated by Yunior Edmond MD @ 03/21/2025 5:24:15 PM (Electronically Signed)
== END 2025-03-18 14:12 | disposition home or self-care (01) ==
LOC: RAD 14:12
PROVIDERS: PCP Internal Medicine; Visit Provider Internal Medicine Hematology & Oncology
DX: C90.00 Multiple myeloma not having achieved remission (principal)
CPT/HCPCS: 36415; 78816; 80053; 85025; A9552

== ENCOUNTER 2025-06-01 10:30 | Outpatient (RCR) | payer MEDICARE, BC, SELFPAY ==
[2024-12-31 12:18] LABS: Hematocrit* 34.2 % (33.0-51.0); Hemoglobin* 10.8 gm/dL (12.0-16.0); Immature Granulocytes Pct Auto 0.7 %; Mean Corpuscular HGB Conc 32 gm/dL (32-36); Mean Corpuscular Hemoglobin 32 pg (26-34); Mean Corpuscular Volume 101 fL (80-100); RDW Coefficient of Variation % 16.2 % (11.5-15.5); Red Blood Count* 3.40 m/uL (4.00-5.20); White Blood Count* 4.45 K/uL (4.50-11.00)
[2024-12-31 12:24] LABS: Immature Granulocytes Abs Auto 0.00 K/uL (0.00-0.30); Lymphocytes Absolute Auto 0.90 K/uL (0.90-2.90); Slide Review Reflex No
[2024-12-31 12:33] LABS: Albumin* 3.9 g/dL (3.3-5.0); Chloride* 109 mmol/L (96-114); Potassium* 3.6 mmol/L (3.6-5.1); Sodium* 141 mmol/L (135-149)
[2024-12-31 12:35] LABS: Alanine Aminotransferase* 19 U/L (4-35); Anion Gap 6 mEq/L (7-15); Aspartate Amino Transferase* 24 U/L (12-35); Blood Urea Nitrogen* 17 mg/dL (7-30); Carbon Dioxide* 26 mmol/L (20-32); Creatinine* 1.0 mg/dL (0.5-1.5); Estimated Glomerular Filt Rate 56 ml/min
[2024-12-31 12:36] LABS: Alkaline Phosphatase* 62 U/L (40-150); Bilirubin Total* 0.5 mg/dL (0.1-1.5); Calcium* 8.6 mg/dL (8.4-10.6); Glucose* 102 mg/dL (60-115); Total Protein* 10.2 g/dL (6.0-8.3)
[2025-02-01 09:43] LABS: Hematocrit* 33.7 % (33.0-51.0); Hemoglobin* 10.5 gm/dL (12.0-16.0); Immature Granulocytes Pct Auto 0.4 %; Mean Corpuscular HGB Conc 31 gm/dL (32-36); Mean Corpuscular Hemoglobin 31 pg (26-34); Mean Corpuscular Volume 101 fL (80-100); RDW Coefficient of Variation % 15.3 % (11.5-15.5); Red Blood Count* 3.35 m/uL (4.00-5.20); White Blood Count* 2.68 K/uL (4.50-11.00)
[2025-02-01 09:51] LABS: Immature Granulocytes Abs Auto 0.00 K/uL (0.00-0.30); Lymphocytes Absolute Auto 0.50 K/uL (0.90-2.90); Slide Review Reflex No
[2025-02-01 09:56] LABS: Albumin* 3.7 g/dL (3.3-5.0); Chloride* 110 mmol/L (96-114); Potassium* 3.8 mmol/L (3.6-5.1); Sodium* 139 mmol/L (135-149)
[2025-02-01 09:59] LABS: Alanine Aminotransferase* 18 U/L (4-35); Alkaline Phosphatase* 62 U/L (40-150); Anion Gap 7 mEq/L (7-15); Aspartate Amino Transferase* 31 U/L (12-35); Bilirubin Total* 0.4 mg/dL (0.1-1.5); Blood Urea Nitrogen* 17 mg/dL (7-30); Calcium* 8.4 mg/dL (8.4-10.6); Carbon Dioxide* 22 mmol/L (20-32); Creatinine* 1.1 mg/dL (0.5-1.5); Estimated Glomerular Filt Rate 50 ml/min; Glucose* 107 mg/dL (60-115)
[2025-02-01 10:08] LABS: Total Protein* 11.5 g/dL (6.0-8.3)
--- NOTE | 2025-02-01 13:55 | ONC.NURNOTE ---
lab results reviewed with Deirdre and called to John Paul ISRAEL on VM ok to start lenolidamide noted increase in serum protien- MMP added to today's labs
[2025-02-03 11:21] LABS: Albumin 4.06 g/dL (3.75-5.01); Immunoglobulin A 38 mg/dL (68-408); Immunoglobulin G 7533 mg/dL (768-1632); Immunoglobulin M 21 mg/dL (35-263)
--- NOTE | 2025-02-04 13:18 | ONC.NURNOTE ---
MMP results reviewed with Dr Boykin and called to Nehemiah discussed moving appt up to 02/18- to review with Dr Boykin upward trend of myeloma numbers
--- NOTE | 2025-02-25 10:23 | ONC.NURNOTE ---
Nehemiah confirms that she is interested in bone marrow and PET scan made as follows [facility] 03/04/25 - labs needed same day for lenalidomide PET 03/25/25 about 3 pm- if there are cancellations for 03/11- this appt will be moved up Lab and Dr Boykin 04/01/25- lenalidomide labs due- if PET is moved up- this appt will also be moved to 03/18/25 Calendars with appts, instructions for PET, and instructions about bone marrow all mailed to Nehemiah
--- NOTE | 2025-02-26 14:55 | ONC.NURNOTE ---
Per Dr Boykin- Hold Revlimid until after the [facility] is done. Nehemiah was called with the update
--- NOTE | 2025-03-08 15:48 | ONC.NURNOTE ---
Nehemiah was contacted about moving up PET and Dr Boykin follow up appts. Nehemiah reports fatigue and generalized weariness that is a change in her status eating well, diarrhea improved while off lenalidomide noted worsening anemia denies and signs of bleeding or dark stools recommended follow up with her PCP- last appt was 6 mths ago Nehemiah is resistant to additional medical appts she has questions to this information writer if she should continue with the restaging- information writer notes that there are options if she wants to continue treatment or not, there are tolerable treatment options, but it is her decision on what she wishes to do after restaging this information writer reminded Nehemiah that if she develops change in breathing, progressive weakness, she needs to go to the ER- Nehemiah states she understands that she should be seen for progressive symptoms of illness
--- NOTE | 2025-03-15 14:36 | ONC.NURNOTE ---
Nurse Practitioner contacted Nehemiah today letter that was mailed several weeks ago with information about BM Bx and PET was returned to [facility] by the post office due to insufficient address address updated with Nehemiah and communicated with front desk representative to update address in the EMR Because Nehemiah had not received the information about the PET, Nehemiah canceled her PET appt for 03/11 and rescheduled for 03/[address] Boykin will be kept for 03/18 even though staging work up is incomplete without the PET Nehemiah acknowledges much anxiety about her myeloma status Nehemiah also discussed her office visit with Dr Lei and apparent miscommunication- states she is writing an apology letter to Dr Lei- Nehemiah states she felt overwhelmed in the visit Nehemiah says it is helpful for her to do her own reading and has been doing her own research on myeloma treatments Nehemiah reiterated her appreciation of support and longstanding relationship with real estate underwriter, and her oncology team, and states she understands that she can call with any concerns
--- NOTE | 2025-03-24 11:29 | ONC.NURNOTE ---
Addendum entered by So Monroe, RN 03/24/25 15:19: Dr Boykin reviewed PET results- conventional underwriter called results to Nehemiah today- represents disease progression- as was understood- Nehemiah was informed to let us know if she develops pain hips, ribs, back- Nehemiah states understanding informed to call [facility] to order her Revlimid delivery- she may start when she receives her dose in the mail, new dosing 25 mg Revlimid 21/28 days Nehemiah understands to restart the dexamethasone weekly dosing (5 X 4 mg tabs) refills needed- Deirdre Michael will refill to [facility] last lab was 3 weeks ago-lab appt set for Vicki- but Nehemiah was told she can start her Revlimid when she receives it- as her labs have been stable throughout her treatment next apps with Dr Boykin and lab scheduled Original Note: PET results emailed to Dr Boykin plan is to start back on Revlimid with dose 25 mg D 1-21 Q 28 days new Rx sent to [facility] Message left for Nehemiah to call for PET results and next steps
[2025-03-30 11:07] LABS: Hematocrit* 27.3 % (33.0-51.0); Hemoglobin* 8.4 gm/dL (12.0-16.0); Immature Granulocytes Pct Auto 0.8 %; Lymphocytes Absolute Auto 0.70 K/uL (0.90-2.90); Mean Corpuscular HGB Conc 31 gm/dL (32-36); Mean Corpuscular Hemoglobin 32 pg (26-34); Mean Corpuscular Volume 105 fL (80-100); RDW Coefficient of Variation % 18.3 % (11.5-15.5); Red Blood Count* 2.61 m/uL (4.00-5.20); White Blood Count* 3.96 K/uL (4.50-11.00)
[2025-03-30 11:08] LABS: Immature Granulocytes Abs Auto 0.00 K/uL (0.00-0.30)
[2025-03-30 11:10] LABS: Slide Review Reflex No
[2025-03-30 11:23] LABS: Albumin* 3.4 g/dL (3.3-5.0); Chloride* 108 mmol/L (96-114); Potassium* 3.8 mmol/L (3.6-5.1); Sodium* 136 mmol/L (135-149)
[2025-03-30 11:26] LABS: Alanine Aminotransferase* 14 U/L (4-35); Alkaline Phosphatase* 57 U/L (40-150); Anion Gap 3 mEq/L (7-15); Aspartate Amino Transferase* 27 U/L (12-35); Bilirubin Total* 0.4 mg/dL (0.1-1.5); Blood Urea Nitrogen* 18 mg/dL (7-30); Calcium* 8.3 mg/dL (8.4-10.6); Carbon Dioxide* 25 mmol/L (20-32); Creatinine* 1.1 mg/dL (0.5-1.5); Est. Creatinine Clearance* 30.89; Estimated Glomerular Filt Rate 50 ml/min; Glucose* 114 mg/dL (60-115)
[2025-03-30 11:34] LABS: Total Protein* 13.0 g/dL (6.0-8.3)
--- NOTE | 2025-03-30 15:40 | ONC.NURNOTE ---
with anemia noted- denies any signs of bleeding ( change in stool color or consistency), denies SOB, although states her fatigue has improved in the recent weeks understands to call with any change in breathing, lightheadedness
--- NOTE | 2025-04-02 08:38 | ONC.NURNOTE ---
Patient called and states she is doing well. Specifically asked about diarrhea and patient states she goes maybe 1-2 times a day and not every day but does take an Imodium and that stops it right away. Also asked about energy and patient states she is good stating It doesn't inhibit my activity I want to get done but does feel a bit more tired. Let her know Dr. Boykin reviewed her labs and wanted another CBC in 2 weeks so scheduled for April 12.
--- NOTE | 2025-04-08 14:36 | ONC.NURNOTE ---
Called pt to see how she was doing with increase in Revlimid dose, pt states she is doing well and has no concerns.
[2025-04-22 13:54] LABS: Hematocrit* 26.4 % (33.0-51.0); Hemoglobin* 8.2 gm/dL (12.0-16.0); Immature Granulocytes Pct Auto 0.3 %; Mean Corpuscular HGB Conc 31 gm/dL (32-36); Mean Corpuscular Hemoglobin 33 pg (26-34); Mean Corpuscular Volume 105 fL (80-100); RDW Coefficient of Variation % 18.4 % (11.5-15.5); Red Blood Count* 2.52 m/uL (4.00-5.20); White Blood Count* 2.89 K/uL (4.50-11.00)
[2025-04-22 14:04] LABS: Immature Granulocytes Abs Auto 0.00 K/uL (0.00-0.30); Lymphocytes Absolute Auto 1.00 K/uL (0.90-2.90)
[2025-04-22 14:05] LABS: Slide Review Reflex No
[2025-04-22 14:08] LABS: Albumin* 3.5 g/dL (3.3-5.0); Chloride* 110 mmol/L (96-114); Potassium* 3.8 mmol/L (3.6-5.1); Sodium* 133 mmol/L (135-149)
[2025-04-22 14:10] LABS: Alanine Aminotransferase* 17 U/L (4-35); Anion Gap 4 mEq/L (7-15); Aspartate Amino Transferase* 34 U/L (12-35); Blood Urea Nitrogen* 15 mg/dL (7-30); Carbon Dioxide* 19 mmol/L (20-32); Creatinine* 1.3 mg/dL (0.5-1.5); Est. Creatinine Clearance* 25.99; Estimated Glomerular Filt Rate 41 ml/min
[2025-04-22 14:11] LABS: Alkaline Phosphatase* 55 U/L (40-150); Bilirubin Total* 0.3 mg/dL (0.1-1.5); Calcium* 8.6 mg/dL (8.4-10.6); Glucose* 153 mg/dL (60-115)
[2025-04-22 14:20] LABS: Total Protein* 14.7 g/dL (6.0-8.3)
[2025-04-22 16:52] LABS: TSH With Reflex to FT4* 2.430 uIU/mL (0.270-4.200)
[2025-04-26] VITALS (9 sets, daily range): BP systolic 183–209; BP diastolic 75–98; PULSE 82–108; RESP 18–20; TEMP 35.9–37.4; O2SAT 90–94
--- NOTE | 2025-04-26 08:05 | ONC.NURNOTE ---
Received a call from lab stating that pt did not come in yesterday for type and crossmatch. Pt is scheduled for blood transfusion today. RN called Nehemiah and she reports that she didn't make it as her cousin came to to celebrate her birthday and things got complicated. Pt then shared that her ride for today fell through. She will work on a ride to get to [facility] this morning. Pt is due to have a unit of irradiated PRBC. We discussed setting up medical transportation in the future to assure a reliable ride. Pt agrees. Pt understands it could take several hours to get her blood ready which may impact the schedule.
[2025-04-26] MEDS: FUROSEMIDE 20 MG TABLET PO (16:41)
--- NOTE | 2025-04-29 12:46 | ONC.NURNOTE ---
Late entry: Pt present at [facility] for blood transfusion. BP elevated throughout the entire day. Pt extremely anxious. Support and relaxation techniques attempted by all RN's involved. Upon completion of blood transfusion pt's blood pressure continued to be elevated. Discussed case with Deirdre Rodriguez, [employer] TECHNICIAN and RN was given permission to discharge pt. Also of note, Lasix 20 mg PO was given to Nehemiah right before leaving [facility]
[2025-05-04 10:10] VITALS: BP 170/76; PULSE 105; RESP 18; TEMP 36; O2SAT 95
[2025-05-04 10:27] LABS: Hematocrit* 29.5 % (33.0-51.0); Hemoglobin* 9.1 gm/dL (12.0-16.0); Immature Granulocytes Abs Auto 0.00 K/uL (0.00-0.30); Immature Granulocytes Pct Auto 0.0 %; Mean Corpuscular HGB Conc 31 gm/dL (32-36); Mean Corpuscular Hemoglobin 32 pg (26-34); Mean Corpuscular Volume 103 fL (80-100); RDW Coefficient of Variation % 18.2 % (11.5-15.5); Red Blood Count* 2.87 m/uL (4.00-5.20); White Blood Count* 3.20 K/uL (4.50-11.00)
[2025-05-04 10:48] LABS: Albumin* 3.4 g/dL (3.3-5.0); Chloride* 111 mmol/L (96-114); Lymphocytes Absolute Auto 0.90 K/uL (0.90-2.90); Potassium* 4.1 mmol/L (3.6-5.1); Slide Review Reflex No; Sodium* 135 mmol/L (135-149)
[2025-05-04 10:51] LABS: Alanine Aminotransferase* 14 U/L (4-35); Alkaline Phosphatase* 75 U/L (40-150); Anion Gap 1 mEq/L (7-15); Aspartate Amino Transferase* 32 U/L (12-35); Bilirubin Total* 0.3 mg/dL (0.1-1.5); Blood Urea Nitrogen* 25 mg/dL (7-30); Calcium* 8.8 mg/dL (8.4-10.6); Carbon Dioxide* 23 mmol/L (20-32); Creatinine* 1.4 mg/dL (0.5-1.5); Est. Creatinine Clearance* 23.29; Estimated Glomerular Filt Rate 37 ml/min; Glucose* 99 mg/dL (60-115)
[2025-05-04 11:01] LABS: Total Protein* 14.7 g/dL (6.0-8.3)
[2025-05-04] MEDS: ACETAMINOPHEN 325 MG TABLET 650 MG PO (11:25)
[2025-05-04] MEDS: DARATUMUMAB-HYALURONIDASE-FIHJ 15 ML SUBCUT (12:56)
--- NOTE | 2025-05-05 14:34 | ONC.NURNOTE ---
New start Darzalex follow up call Reports sleepiness since yesterday's treatment. No fevers, no rash,no injection site tenderness, eating and drinking well. taking the lenalidomide as directed reports back stiffness no pain
[2025-05-11 09:58] LABS: Hematocrit* 26.8 % (33.0-51.0); Hemoglobin* 8.3 gm/dL (12.0-16.0); Immature Granulocytes Pct Auto 0.3 %; Mean Corpuscular HGB Conc 31 gm/dL (32-36); Mean Corpuscular Hemoglobin 32 pg (26-34); Mean Corpuscular Volume 103 fL (80-100); RDW Coefficient of Variation % 17.7 % (11.5-15.5); Red Blood Count* 2.60 m/uL (4.00-5.20); White Blood Count* 3.21 K/uL (4.50-11.00)
[2025-05-11 10:01] LABS: Immature Granulocytes Abs Auto 0.00 K/uL (0.00-0.30); Lymphocytes Absolute Auto 0.50 K/uL (0.90-2.90); Slide Review Reflex No
[2025-05-11 10:18] VITALS: BP 167/82; PULSE 92; TEMP 37.3; O2SAT 91
[2025-05-11 10:18] LABS: Albumin* 3.3 g/dL (3.3-5.0); Chloride* 111 mmol/L (96-114); Potassium* 3.7 mmol/L (3.6-5.1); Sodium* 137 mmol/L (135-149)
[2025-05-11 10:21] LABS: Alanine Aminotransferase* 17 U/L (4-35); Alkaline Phosphatase* 64 U/L (40-150); Anion Gap 3 mEq/L (7-15); Aspartate Amino Transferase* 32 U/L (12-35); Bilirubin Total* 0.5 mg/dL (0.1-1.5); Blood Urea Nitrogen* 21 mg/dL (7-30); Calcium* 8.6 mg/dL (8.4-10.6); Carbon Dioxide* 23 mmol/L (20-32); Creatinine* 1.1 mg/dL (0.5-1.5); Est. Creatinine Clearance* 29.64; Estimated Glomerular Filt Rate 49 ml/min; Glucose* 98 mg/dL (60-115)
[2025-05-11 10:28] LABS: Total Protein* 13.6 g/dL (6.0-8.3)
[2025-05-11] MEDS: ACETAMINOPHEN 325 MG TABLET 650 MG PO (11:01)
[2025-05-11] MEDS: DARATUMUMAB-HYALURONIDASE-FIHJ 15 ML SUBCUT (12:29)
[2025-05-18 08:11] LABS: Hematocrit* 24.8 % (33.0-51.0); Immature Granulocytes Pct Auto 0.5 %; Mean Corpuscular HGB Conc 31 gm/dL (32-36); Mean Corpuscular Hemoglobin 32 pg (26-34); Mean Corpuscular Volume 104 fL (80-100); RDW Coefficient of Variation % 18.1 % (11.5-15.5); Red Blood Count* 2.38 m/uL (4.00-5.20); White Blood Count* 2.13 K/uL (4.50-11.00)
[2025-05-18 08:13] LABS: Hemoglobin* 7.7 gm/dL (12.0-16.0); Immature Granulocytes Abs Auto 0.00 K/uL (0.00-0.30); Lymphocytes Absolute Auto 0.50 K/uL (0.90-2.90)
[2025-05-18 08:46] LABS: Chloride* 106 mmol/L (96-114)
[2025-05-18 08:47] LABS: Albumin* 3.3 g/dL (3.3-5.0); Potassium* 3.6 mmol/L (3.6-5.1); Sodium* 136 mmol/L (135-149)
[2025-05-18 08:49] LABS: Blood Urea Nitrogen* 16 mg/dL (7-30); Creatinine* 1.1 mg/dL (0.5-1.5); Est. Creatinine Clearance* 29.64; Estimated Glomerular Filt Rate 49 ml/min
[2025-05-18 08:50] LABS: Alanine Aminotransferase* 15 U/L (4-35); Alkaline Phosphatase* 56 U/L (40-150); Anion Gap 4 mEq/L (7-15); Aspartate Amino Transferase* 20 U/L (12-35); Bilirubin Total* 0.4 mg/dL (0.1-1.5); Calcium* 8.7 mg/dL (8.4-10.6); Carbon Dioxide* 26 mmol/L (20-32); Glucose* 91 mg/dL (60-115)
[2025-05-18 08:57] LABS: Total Protein* 12.6 g/dL (6.0-8.3)
--- NOTE | 2025-05-18 10:35 | ONC.NURNOTE ---
Irradiated blood was not ready today. Patient will come back tomorrow at 1045 for 1 unit of PRBCs.
[2025-05-18 21:23] LABS: Slide Review Reflex No
[2025-05-19] VITALS (10 sets, daily range): BP systolic 162–195; BP diastolic 71–91; PULSE 78–99; RESP 16–22; TEMP 36.3–36.9; O2SAT 90–91
[2025-05-19] MEDS: 0.9 % SODIUM CHLORIDE 500 ML 250 ML IV (11:48)
[2025-05-19] MEDS: SODIUM CHLORIDE 0.9 % (FLUSH) 10 ML SYRINGE IVF (11:49)
--- NOTE | 2025-05-19 12:58 | ONC.NURNOTE ---
Patient's oxygen saturations have been 88-91%. Patient states she feels short of breath but also states she is feeling the best she has felt in a while. Lung sounds clear, but shallow breathing, does have some ankle swelling. Denies chest pain and jaw pain. Spoke with Dr. Rodriguez who would like patient to receive 20mg PO Lasix with transfusion today.
[2025-05-19] MEDS: FUROSEMIDE 20 MG TABLET PO (13:49)
[2025-05-25 10:54] LABS: Hematocrit* 29.5 % (33.0-51.0); Hemoglobin* 9.3 gm/dL (12.0-16.0); Immature Granulocytes Pct Auto 0.7 %; Mean Corpuscular HGB Conc 32 gm/dL (32-36); Mean Corpuscular Hemoglobin 32 pg (26-34); Mean Corpuscular Volume 101 fL (80-100); RDW Coefficient of Variation % 17.9 % (11.5-15.5); Red Blood Count* 2.92 m/uL (4.00-5.20)
[2025-05-25 11:01] LABS: Immature Granulocytes Abs Auto 0.00 K/uL (0.00-0.30); Lymphocytes Absolute Auto 0.50 K/uL (0.90-2.90); Slide Review Reflex Yes; White Blood Count* 1.46 K/uL (4.50-11.00)
[2025-05-25 11:08] LABS: Albumin* 3.4 g/dL (3.3-5.0); Chloride* 111 mmol/L (96-114); Potassium* 3.6 mmol/L (3.6-5.1); Sodium* 137 mmol/L (135-149)
[2025-05-25 11:11] LABS: Alanine Aminotransferase* 13 U/L (4-35); Alkaline Phosphatase* 68 U/L (40-150); Anion Gap 3 mEq/L (7-15); Aspartate Amino Transferase* 29 U/L (12-35); Bilirubin Total* 0.3 mg/dL (0.1-1.5); Blood Urea Nitrogen* 19 mg/dL (7-30); Carbon Dioxide* 23 mmol/L (20-32); Creatinine* 1.2 mg/dL (0.5-1.5); Est. Creatinine Clearance* 27.11; Estimated Glomerular Filt Rate 44 ml/min
[2025-05-25 11:12] LABS: Calcium* 8.2 mg/dL (8.4-10.6); Glucose* 101 mg/dL (60-115)
[2025-05-25 11:20] LABS: Total Protein* 13.2 g/dL (6.0-8.3)
[2025-05-25 11:31] LABS: Slide Review Acceptable Review (Acceptable)
[2025-05-31 10:18] LABS: Hematocrit* 30.3 % (33.0-51.0); Hemoglobin* 9.6 gm/dL (12.0-16.0); Immature Granulocytes Pct Auto 0.5 %; Lymphocytes Absolute Auto 0.60 K/uL (0.90-2.90); Mean Corpuscular HGB Conc 32 gm/dL (32-36); Mean Corpuscular Hemoglobin 32 pg (26-34); Mean Corpuscular Volume 101 fL (80-100); RDW Coefficient of Variation % 17.7 % (11.5-15.5); Red Blood Count* 2.99 m/uL (4.00-5.20); White Blood Count* 2.15 K/uL (4.50-11.00)
[2025-05-31 10:21] LABS: Immature Granulocytes Abs Auto 0.00 K/uL (0.00-0.30); Slide Review Reflex No
[2025-05-31 10:32] LABS: Chloride* 106 mmol/L (96-114)
[2025-05-31 10:33] LABS: Albumin* 3.4 g/dL (3.3-5.0); Potassium* 3.3 mmol/L (3.6-5.1); Sodium* 137 mmol/L (135-149)
[2025-05-31 10:35] LABS: Blood Urea Nitrogen* 22 mg/dL (7-30); Creatinine* 1.3 mg/dL (0.5-1.5); Est. Creatinine Clearance* 24.54; Estimated Glomerular Filt Rate 40 ml/min
[2025-05-31 10:36] LABS: Alanine Aminotransferase* 14 U/L (4-35); Alkaline Phosphatase* 70 U/L (40-150); Anion Gap 5 mEq/L (7-15); Aspartate Amino Transferase* 33 U/L (12-35); Bilirubin Total* 0.3 mg/dL (0.1-1.5); Calcium* 8.5 mg/dL (8.4-10.6); Carbon Dioxide* 26 mmol/L (20-32); Glucose* 113 mg/dL (60-115)
[2025-05-31 11:01] LABS: Total Protein* 13.9 g/dL (6.0-8.3)
--- NOTE | 2025-06-01 12:34 | ONC.NURNOTE ---
Addendum entered by Rina Wiggins RN 06/02/25 11:24: Pt's son Dante called for update. He voiced understanding of plan of care. [facility] will call Dante at [phone] to schedule an appt. Original Note: Hospice Referral faxed to [facility].
[2025-06-03 01:27] LABS: Albumin 5.09 g/dL (3.75-5.01); Immunoglobulin A 19 mg/dL (68-408); Immunoglobulin G 9950 mg/dL (768-1632); Immunoglobulin M 14 mg/dL (35-263)
== END 2025-06-29 23:59 | disposition home or self-care (01) ==
LOC: CCIC 10:30
PROVIDERS: Clinical Nurse Specialist; Internal Medicine Hematology & Oncology; PCP Internal Medicine; Referring Provider Family Medicine; Visit Provider Internal Medicine Hematology & Oncology
DX: C90.00 Multiple myeloma not having achieved remission (principal)
CPT/HCPCS: 36415; 36430; 80053; 82784; 83520; 84155; 84165; 84443; 85025; 86334; 86850; 86870; 86880; 86900; 86901; 86904; 86920; 86922; 86970; 96401; 99211; 99213; 99214; 99215; G0463; J9144; A9270; J7030; P9016